=== PATIENT | male | born 1965 | race Caucasian/White ===

== ENCOUNTER 2017-01-08 01:35 | Inpatient (IN) | payer SELFPAY ==
[2017-01-08] MEDS ORDERED: SODIUM CHLORIDE 0.9% 500 ML INFUS.BAG IV ONE (02:04)
[2017-01-08 02:24] LABS: BASOPHIL 0.7 % (0-2.0); EOSINOPHIL 1.8 % (0-4.5); MCH 31.7 pg (25.7-33.7); MCHC 33.2 g/dl (32.0-35.9); MEAN CELL VOLUME 95.7 fl (80-96); MEAN PLT VOLUME 8.4 fl (7.5-11.1); NEUTROPHILS 72.6 % (42.8-82.8); PLATELET COUNT 197 K/MM3 (134-434); RDW 15.1 % (11.9-15.9); WHITE BLOOD COUNT 7.6 K/mm3 (4.0-10.0)
[2017-01-08] MEDS ORDERED: LORazepam 2 MG/ML SDV VIAL ONE (02:24)
--- NOTE | 2017-01-08 02:27 | PDOC ---
History of Present Illness - General History Source: Patient Exam Limitations: No Limitations - History of Present Illness Initial Comments: 01/08/17 03:19 The patient is a 51-year-old male BIB brother with a significant past medical history of HTN, HLD, DM, ETOH abuse, and presents to the emergency department with bleeding umbilical hernia since 1:30am. He reports that he sat up in bed tonight when the hernia began to bleed. He reports the bleeding has not ceased upon interview. He states he had 4 alcoholic drinks today, with the last intake at 9pm. He states the hernia has grown progressively larger over the last few years. The patient denies chest pain, shortness of breath, headache and dizziness. The patient denies fever, chills, nausea, vomit, diarrhea and constipation. The patient denies dysuria, frequency, urgency and hematuria. Allergies: NKDA Past Surgical History: defibrillator implant Social History: ETOH use for 11 years (5-6 beers a day), former smoker, denies drug use PCP: Dr. Baires at [facility] <Roseline Dupree - Last Filed: 01/08/17 06:59> <Rosio Lin - Last Filed: 01/09/17 05:10> - General Chief Complaint: Pain Stated Complaint: HERNIA PROBLEM Time Seen by Provider: 01/08/17 01:58 Past History <Roseline Dupree - Last Filed: 01/08/17 06:59> - Past Medical History Cardiac Disorders: Yes CVA: No CHF: No Dementia: No Diabetes: Yes GI Disorders: No Disorders: No HTN: Yes Hypercholesterolemia: Yes Liver Disease: No Seizures: No Thyroid Disease: No - Surgical History Abdominal Surgery: No Appendectomy: No Cardiac Surgery: Yes (DEFIB IMPLANTED.) Cholecystectomy: No Lung Surgery: No Neurologic Surgery: No Orthopedic Surgery: No - Psycho/Social/Smoking Cessation Hx Anxiety: No Suicidal Ideation: No Smoking Status: No Smoking History: Never smoked Have you smoked in the past 12 months: No Number of Cigarettes Smoked Daily: 0 If you are a former smoker, when did you quit?: Cigars Per Day: 0 Hx Alcohol Use: Yes Substance Use Type: None, Alcohol Hx Substance Use Treatment: Yes (went to a drinking program about 2005) <Rosio Lin - Last Filed: 01/09/17 05:10> - Past Medical History Allergies/Adverse Reactions: Allergies Allergy/AdvReac Type Severity Reaction Status Date / Time No Known Allergies Allergy Verified 01/08/17 02:01 Home Medications: Ambulatory Orders Amlodipine Besylate [Norvasc -] 5 mg PO DAILY 09/22/15 Lisinopril [Prinivil -] 40 mg PO DAILY 09/22/15 Metformin HCl [Metformin HCl ER] 1,000 mg PO BID 09/22/15 Metoprolol Tartrate 100 mg PO BID 09/22/15 Simvastatin [Zocor -] 20 mg PO HS 09/22/15 Glipizide [Glucotrol -] 10 mg PO BID@0700,1630 03/03/16 Review of Systems - Review of Systems Able to Perform ROS?: Yes Comments:: 01/08/17 07:00 CONSTITUTIONAL: Absent: fever, chills, diaphoresis, generalized weakness, malaise, loss of appetite HEENT: Absent: rhinorrhea, nasal congestion, throat pain, throat swelling, difficulty swallowing, mouth swelling, ear pain, eye pain, visual changes CARDIOVASCULAR: Absent: chest pain, syncope, palpitations, irregular heart rate, lightheadedness , peripheral edema RESPIRATORY: Absent: cough, shortness of breath, dyspnea with exertion, orthopnea, wheezing, stridor, hemoptysis GASTROINTESTINAL: Present: (+) bleeding umbilical hernia Absent: abdominal distension, nausea, vomiting, diarrhea, constipation, melena, hematochezia GENITOURINARY: Absent: dysuria, frequency, urgency, hesitancy, hematuria, flank pain, genital pain MUSCULOSKELETAL: Absent: myalgia, arthralgia, joint swelling SKIN: Absent: rash, itching, pallor HEMATOLOGIC/IMMUNOLOGIC: Absent: easy bleeding, easy bruising, lymphadenopathy, frequent infections ENDOCRINE: Absent: unexplained weight gain, unexplained weight loss, heat intolerance, cold intolerance NEUROLOGIC: Absent: headache, focal weakness or paresthesias, dizziness, unsteady gait, seizure, mental status changes, bladder or bowel incontinence PSYCHIATRIC: Absent: anxiety, depression, suicidal or homicidal ideation, hallucinations. <Roseline Dupree - Last Filed: 01/08/17 06:59> *Physical Exam - Vital Signs Last Vital Signs Temp Pulse Resp BP Pulse Ox 132 H 18 136/81 96 01/08/17 01:58 01/08/17 01:58 01/08/17 01:58 01/08/17 01:58 - Physical Exam Comments: 01/08/17 07:00 GENERAL: Well developed, well nourished. Awake and alert. No acute distress. HEENT: Normocephalic, atraumatic. PERRLA, EOMI. No conjunctival pallor. (+) Icteric sclera. Moist mucous membranes. Oropharynx is clear. NECK: Supple. Full ROM. No JVD. Carotid pulses 2+ and symmetric, without bruits. No thyromegaly. No lymphadenopathy. CARDIOVASCULAR: (+) Tachycardic. Regular rhythm. No murmurs, rubs, or gallops. Distal pulses are 2+ and symmetric. PULMONARY: No evidence of respiratory distress. Lungs clear to auscultation bilaterally. No wheezing, rales or rhonchi. ABDOMINAL: (+) 3.5 cm diameter protuberant umbilical hernia, bleeding at 5 oclock. (+) Distended belly, liver is not enlarged, most likely cirrhotic. Soft. Non- tender. No rebound or guarding. No organomegaly. Normoactive bowel sounds. MUSCULOSKELETAL Normal range of motion at all joints. No bony deformities or tenderness. No CVA tenderness. EXTREMITIES: (+) 4+ pitting edema up to thighs. No cyanosis. No clubbing. No calf tenderness. SKIN: (+) Skin color changes to legs. Warm and dry. Normal capillary refill. No rashes. NEUROLOGICAL: Alert, awake, appropriate. Cranial nerves 2-12 intact. No deficits to light touch and temperature in face, upper extremities and lower extremities. No motor deficits in the in face, upper extremities and lower extremities. Normoreflexic in the upper and lower extremities. Normal speech. Toes are down- going bilaterally. PSYCHIATRIC: Cooperative. Good eye contact. Appropriate mood and affect. <Roseline Dupree - Last Filed: 01/08/17 06:59> - Vital Signs Last Vital Signs Temp Pulse Resp BP Pulse Ox 132 H 18 136/81 96 01/08/17 01:58 01/08/17 01:58 01/08/17 01:58 01/08/17 01:58 <Rosio Lin - Last Filed: 01/09/17 05:10> ED Treatment Course - LABORATORY CBC & Chemistry Diagram: 01/08/17 01:58 01/08/17 02:08 - ADDITIONAL ORDERS Additional order review: Laboratory Results 01/08/17 01/08/17 01/08/17 02:08 02:08 02:08 INR 1.18 H PTT (Actin FS) 35.9 H Sodium 133 L Potassium 3.9 D Chloride 95 L Carbon Dioxide 23 Anion Gap 15 BUN 4 L Creatinine 0.6 L Creat Clearance w eGFR > 60 Random Glucose 398 H* D Calcium 7.9 L Total Bilirubin 1.3 H D AST 168 H D ALT 35 Alkaline Phosphatase 432 H D Total Protein 7.7 Albumin 2.0 L D 01/08/17 01:58 RBC 3.27 L D MCV 95.7 MCHC 33.2 RDW 15.1 MPV 8.4 D Neutrophils % 72.6 Lymphocytes % 16.8 D Monocytes % 8.1 Eosinophils % 1.8 D Basophils % 0.7 - Medications Given in the ED: ED Medications Discontinued Medications Generic Name Dose Route Start Last Admin Trade Name Freq PRN Reason Stop Dose Admin Lorazepam 4 mg 01/08/17 02:49 01/08/17 02:50 Ativan Injection - IVPUSH 01/08/17 02:50 4 mg ONCE ONE Administration Sodium Chloride 1,000 ml 01/08/17 02:04 01/08/17 02:11 Normal Saline - IV 01/08/17 02:05 1,000 ml ONCE ONE Administration <Roseline Dupree - Last Filed: 01/08/17 06:59> - LABORATORY CBC & Chemistry Diagram: 01/08/17 01:58 01/08/17 02:08 - RADIOLOGY Radiology Studies Ordered: Category Date Time Status CHEST X-RAY PORTABLE* [RAD] Stat Radiology 01/08/17 02:04 Ordered - Medications Given in the ED: ED Medications Discontinued Medications Generic Name Dose Route Start Last Admin Trade Name Freq PRN Reason Stop Dose Admin Sodium Chloride 1,000 ml 01/08/17 02:04 01/08/17 02:11 Normal Saline - IV 01/08/17 02:05 1,000 ml ONCE ONE Administration <Rosio Lin - Last Filed: 01/09/17 05:10> Medical Decision Making - Critical Care Time Total Critical Care Time (minutes): 45 Critical Care Statement: The care of this patient involved high complexity decision making to prevent further life threatening deterioration of the patient 's condition and/or to evalute & treat vital organ system(s) failure or risk of failure. - Medical Decision Making 01/09/17 05:05 Pt comes with constant bleed from his umbilicus. He has an alcohol abuse problem, and drinks alcohol daily. Today he awoke in the middle of the night, and states that when he sat up his umbilicus began to bleed. He has a large umbilical hernia, which he had never repaired electively, now tih non stop uncontrollable bleeding. Upon examination, pt has a 2mm perforation at 5 o' clock at the umbilicus, that was likely abutting a varices or his umbilical vein. I managed to hold pressure for 20 minutes, followed by holding pressure for 10 minutes with surgicel. Pt's umbilical bleed finally clotted off. He was treated with abx and with tdap, as the bleed and lac could lead to a peritonitis. Pt will be admitted to medicine for surgical evaluation. Pt has a hx of DM, blood sugar elevated. We treated with regular insulin in the ER. 01/09/17 05:10 Admitted to the hospitalist. <Rosio Lin - Last Filed: 01/09/17 05:10> *DC/Admit/Observation/Transfer - Attestations Scribe Attestion: 01/08/17 07:00 Documentation prepared by Roseline Dupree, acting as bilingual medical receptionist for Rosio Lin MD. <Roseline Dupree - Last Filed: 01/08/17 06:59> - Discharge Dispostion Admit: Yes <Rosio Lin - Last Filed: 01/09/17 05:10> Diagnosis at time of Disposition: Alcohol dependence, Diabetes, Umbilical hernia, Umbilical hemorrhage - Discharge Dispostion Condition at time of disposition: Guarded
[2017-01-08 02:35] LABS: INR 1.18 (0.82-1.09)
[2017-01-08 02:38] LABS: ANION GAP 15 (8-16); CALCIUM 7.9 mg/dL (8.5-10.1); CO2 23 mmol/L (21-32); CREATININE 0.6 mg/dL (0.7-1.3); SGOT/AST 168 U/L (15-37); SGPT/ALT 35 U/L (12-78)
[2017-01-08 02:40] LABS: ALK PHOS 432 U/L (45-117); BILIRUBIN,TOTAL 1.3 mg/dL (0.2-1.0); TOT PROT 7.7 g/dl (6.4-8.2)
[2017-01-08 02:44] LABS: GLUCOSE,RANDOM 398 mg/dL (74-106)
[2017-01-08] MEDS ORDERED: LORAZEPAM CARPU-JECT 2 MG/ML DISP.SYRIN IVPUSH ONE (02:49)
[2017-01-08] MEDS ORDERED: PIPERACILLIN/TAZOB 3.375 GM 3.375 GM in DEXTROSE 5%-WATER - 50 ML IVPB ONE (02:54)
[2017-01-08] MEDS ORDERED: DIPHTH,PERTUSS(ACELL),TET VAC 0.5 ML VIAL IM ONE (02:54)
[2017-01-08] MEDS ORDERED: INSULIN REGULAR HUMAN 100 UNITS/ML *VIAL IVPUSH ONE (02:57)
[2017-01-08] MEDS ORDERED: PIPERACILLIN/TAZOB 3.375 GM 50 ML IVPB ONE (04:51)
[2017-01-08] MEDS ORDERED: chlordiazePOXIDE HCL 25 MG CAPSULE PO PRN (06:54)
--- NOTE | 2017-01-08 06:57 | HP ---
Admitting History and Physical - Admission Chief Complaint: bleeding umbilical hernia History of Present Illness: 51 yo M w hx of HTN, HLD, DM, ETOH abuse, PPM, unspecified arrhythmia and presents to the emergency department with bleeding umbilical hernia since 1: 30am yesterday. He reports feeling discomfort to umbilical area and then noticed bleeding from the area. He denies prior bleeding episodes before. He reports taking ASA 81mg daily. He denies sob, cp, heart palps, abdominal pain, fevers, chills, body aches, diarrhea, vomiting. He denies recent trauma PMH/PSH- HTN, HLD, DM, ETOH abuse, PPM placement Social-- drinks 6-7 beers daily. Denies rec drugs, denies tobacco Famx- OR PCP- Dr. Baires Cards- Dr. Stahl, anamika Ros neg except for hpi Physical Gen- obese in nad, alert Hent- at/nc, ana, neck supple, trachea mid-line, no lymphadenopathy Resp- no cough, no ronchi, no rales, no wheezing, lungs ctab Cards- s1s2 heard, no JVD, +2 BLE pitting edema, peripheral pulses palpable Gi- obese abdomen, large reducible umbilical hernia, no rigidity, no guarding, BS normoactive Psych- cooperative, no agitation Neuro- cn 2-12 grossly intact, no speech deficits, no facial droop, no seizures Skin- redness to ble, increased warmth to ble, dressing to umbilical hernia Prob list Bleeding umbilical hernia DM HTN HLP hyponatremia anemia etoh abuse Leg edema transaminitis PPM Hyperbilirubemia tachycardia imaging CXR reviewed ecg- tachy, inc RBBB, possible left atrial enlargement a/p-51 yo M w hx of HTN, HLD, DM, ETOH abuse, and presents to the emergency department with bleeding umbilical hernia since 1:30am yesterday admitted for eval of their emergent condition 1. Bleeding umbilical hernia Per attending surgi seal and pressure applied to hernia with good effect Hold ASA local wound care Surgical consult placed 2. DM SSI BGM check FU A1c 3. HLP Hold Statin 2/2 elevated LFTs 4. Anemia possibly from acute blood loss Appears lower than baseline 11-12 Monitor CBC FU iron studies, FOBT 5. Etoh abuse with possible WD Last drink yesterday Given Ativan in ER Librium protocol [employer] on cessation FU Dr Donato aguilera 6. Hypnonatremia likely hyperglycemic effect Monitor labs 7. HTN Cont home meds 8. Leg edema, & redness ? dvt v cellulitis v other NO calf tenderness Increased warmth and redness bilaterally IV clindamycin 900mg [id number] FU duplex 9. Transaminitis ?infection v fatty liver f meds Hold Statin No belly pain FU liver US FU acute hep panel 10. PPM Reports check 12/2016 11. Hyperbilirubemia Monitor labs FU liver US 12. Sinus tachycardia likely secondary from blood loss v +/- alcohol WD Ekg non ischemic No CP or SOb CXr appears clear by my eye Fu trop Watch response with IVF DVT prophy hold chemoprophy 08/11 bleeding hernia FEN IVF NPO Dispo- requires > 2mn stay for bleeding umbilical hernia History Source: Patient Limitations to Obtaining History: No Limitations - Smoking History Smoking history: Never smoked Have you smoked in the past 12 months: No Aproximately how many cigarettes per day: 0 If you are a former smoker, when did you quit?: - Alcohol/Substance Use Hx Alcohol Use: Yes Home Medications - Allergies Allergies/Adverse Reactions: Allergies Allergy/AdvReac Type Severity Reaction Status Date / Time No Known Allergies Allergy Verified 01/08/17 02:01 - Home Medications Home Medications: Ambulatory Orders Amlodipine Besylate [Norvasc -] 5 mg PO DAILY 09/22/15 Lisinopril [Prinivil -] 40 mg PO DAILY 09/22/15 Metformin HCl [Metformin HCl ER] 1,000 mg PO BID 09/22/15 Metoprolol Tartrate 100 mg PO BID 09/22/15 Simvastatin [Zocor -] 20 mg PO HS 09/22/15 Glipizide [Glucotrol -] 10 mg PO BID@0700,1630 03/03/16 Physical Examination Vital Signs: Vital Signs Temperature Pulse Rate 132 H 01/08/17 01:58 Respiratory Rate 18 01/08/17 01:58 Blood Pressure 136/81 01/08/17 01:58 O2 Sat by Pulse Oximetry (%) 96 01/08/17 01:58 Visit type - Emergency Visit Emergency Visit: Yes ED Registration Date: 01/08/17 Care time: The patient presented to the Emergency Department on the above date and was hospitalized for further evaluation of their emergent condition. - New Patient This patient is new to me today: Yes Date on this admission: 01/08/17 - Critical Care Critical Care patient: No
[2017-01-08] MEDS: INSULIN SLIDING SCALE (NOVOLOG) 1 VIAL SQ SCH ×4 (08:25→21:14)
[2017-01-08] MEDS: SODIUM CHLORIDE 1,000 ML IV SCH ×2 (08:30→10:43)
[2017-01-08] MEDS ORDERED: CLINDAMYCIN 900 MG PREMIX IVPB 50 ML IVPB SCH (10:00)
[2017-01-08] MEDS: amLODIPine BESYLATE 5 MG TABLET (FP) PO SCH (10:41)
[2017-01-08] MEDS: LISINOPRIL 20 MG TABLET (FP) PO SCH (10:41)
[2017-01-08] MEDS: METOPROLOL TARTRATE 50 MG TABLET (FP) PO SCH ×2 (10:41→21:13)
[2017-01-08] MEDS ORDERED: INSULIN (NOVOLOG) ASPART 100 UNITS/ML 10ML VIAL ONE (10:42)
[2017-01-08] MEDS: chlordiazePOXIDE HCL 25 MG CAPSULE PO SCH ×3 (10:43→22:57)
[2017-01-08 11:17] VITALS: BMI 36.6
--- NOTE | 2017-01-08 13:10 | HP ---
DATE OF ADMISSION: 01/08/2017 REFERRING PROVIDER: ROB Carr REASON FOR REFERRAL: Umbilical hernia. BRIEF HISTORY: This is a 51-year-old alcoholic who presents to the emergency room with bleeding from his umbilicus. The patient is noted to have a very chronic umbilical hernia and now is here for further evaluation of this bleeding issue. He has no complaints of nausea, vomiting, nor abdominal pain. No change in bowel habits. No fever, chills, or sweats. PAST MEDICAL HISTORY: As mentioned above. Refer to chart for the rest. ALLERGIES: None. PAST SURGICAL HISTORY: Unknown. MEDICATIONS: See chart. SOCIAL HISTORY: Patient is an alcoholic, has been in rehabilitation, continues to drink. Denies drug use. PHYSICAL EXAMINATION: The abdomen is soft, nontender, nondistended, obese. He has a chronically incarcerated protruding umbilical hernia. There is some bleeding from the skin edge around 3 o'clock. IMPRESSION/PLAN: Excoriation of the skin around the umbilicus. This was suture ligated for control of nuisance skin bleeding. The patient can be evaluated in the office and followed up for elective repair of this hernia once deemed medically stable. I will see this patient on a p.r.n. basis. Thank you for allowing me to participate in the care of your patient. TONY DUBON M.D. [id number] cc: ROB Carr
--- NOTE | 2017-01-08 16:34 | HOSP ---
Physical Examination Vital Signs: Vital Signs Temperature 99.5 F 01/08/17 15:49 Pulse Rate 91 H 01/08/17 15:49 Respiratory Rate 20 01/08/17 15:49 Blood Pressure 123/64 01/08/17 15:49 O2 Sat by Pulse Oximetry (%) 98 01/08/17 10:57 Gastrointestinal: Yes: Hernia (umnilical hernia, reproducible, stiches x2, dressed) Edema: Yes Edema: LLE: Trace, RLE: Trace Integumentary: Yes: Erythema, Venous Stasis Changes Neurological: Yes: Alert, Oriented Hospitalist Encounter Assessment: Assessment: 51 year old male admitted with bleeding hernia Plan: 1. Bleeding hernia - Surgery evaluated placed 2 stitches, not a candidate for surgery at this time - Keep dressing in place until and follow up in office - Do not shower - Consider abdominal binder 2. Hyponatremia - Corrected 137 3. Elevated LFT's/alk phos - Continue IVF 75cc/hr 4. DM II - ISS, BGM ACHS 5. ETOH abuse - Started librium detox - Pt has 6-8 beers a night - No active withdrawal signs at this time 7. Hepatosplenomegaly - Counseled on cessation of alcohol 8. Lower ext erythema - No tenderness, no swelling - L >R erythema appearing - Vascular US repeat in 3 days if no improvent - Possible cellulitis, on clinda 600 q8
--- NOTE | 2017-01-08 17:23 | EKG ---
Test Reason : Blood Pressure : / mmHG Vent. Rate : 118 BPM Atrial Rate : 118 BPM P-R Int : 136 ms QRS Dur : 092 ms QT Int : 338 ms P-R-T Axes : 046 -26 044 degrees QTc Int : 473 ms SINUS TACHYCARDIA POSSIBLE LEFT ATRIAL ENLARGEMENT INCOMPLETE RIGHT BUNDLE BRANCH BLOCK ANTERIOR INFARCT , AGE UNDETERMINED ABNORMAL ECG WHEN COMPARED WITH ECG OF 31-JUL-2016 19:42, VENT. RATE HAS INCREASED BY 47 BPM ANTERIOR INFARCT IS NOW PRESENT NONSPECIFIC T WAVE ABNORMALITY NOW EVIDENT IN ANTERIOR LEADS Confirmed by MORRIS RODRIGUEZ, BERNA ([id number]) on 01/08/2017 5:23:32 PM Referred By: Confirmed By:BERNA CACERES MD
[2017-01-08] MEDS: CLINDAMYCIN 600MG PREMIX IVPB 50 ML IVPB SCH (17:45)
[2017-01-08] MEDS: FOLIC ACID 1 MG TABLET (FP) PO SCH (17:45)
[2017-01-08] MEDS: THIAMINE HCL 100 MG TABLET (FP) PO SCH (17:45)
[2017-01-09] MEDS: CLINDAMYCIN 600MG PREMIX IVPB 50 ML IVPB SCH ×3 (02:32→17:06)
[2017-01-09] MEDS: chlordiazePOXIDE HCL 25 MG CAPSULE PO SCH ×4 (06:00→22:56)
[2017-01-09 06:06] LABS: SERUM IRON 49 ug/dL (38-169); TOTAL IRON BINDING CAPACITY 200 ug/dL (250-450); UIBC 151 ug/dL (111-343)
[2017-01-09] MEDS: INSULIN SLIDING SCALE (NOVOLOG) 1 VIAL SQ SCH ×4 (06:13→22:55)
[2017-01-09 06:54] LABS: BASOPHIL 0.8 % (0-2.0); EOSINOPHIL 3.7 % (0-4.5); MCH 32.6 pg (25.7-33.7); MCHC 33.9 g/dl (32.0-35.9); MEAN CELL VOLUME 96.1 fl (80-96); PLATELET COUNT 167 K/MM3 (134-434); RDW 15.3 % (11.9-15.9); WHITE BLOOD COUNT 6.1 K/mm3 (4.0-10.0)
[2017-01-09 07:37] LABS: ALBUMIN 1.6 g/dl (3.4-5.0); ANION GAP 7 (8-16); BILIRUBIN,TOTAL 0.9 mg/dL (0.2-1.0); CALCIUM 7.7 mg/dL (8.5-10.1); CO2 27 mmol/L (21-32); CREATININE 0.5 mg/dL (0.7-1.3); SGOT/AST 133 U/L (15-37); SGPT/ALT 24 U/L (12-78)
[2017-01-09 07:46] LABS: ALK PHOS 346 U/L (45-117); THYROID STIMULATING HORMONE 1.97 uIU/ml (0.358-3.74); TOT PROT 6.3 g/dl (6.4-8.2)
[2017-01-09 08:35] LABS: GLUCOSE,RANDOM 287 mg/dL (74-106)
[2017-01-09] MEDS: FOLIC ACID 1 MG TABLET (FP) PO SCH (09:37)
[2017-01-09] MEDS: THIAMINE HCL 100 MG TABLET (FP) PO SCH (09:37)
[2017-01-09] MEDS: METOPROLOL TARTRATE 50 MG TABLET (FP) PO SCH ×2 (09:37→22:55)
[2017-01-09] MEDS: LISINOPRIL 20 MG TABLET (FP) PO SCH (09:37)
[2017-01-09] MEDS: SODIUM CHLORIDE 1,000 ML IV SCH (09:38)
[2017-01-09] MEDS: amLODIPine BESYLATE 5 MG TABLET (FP) PO SCH (10:37)
--- NOTE | 2017-01-09 12:15 | CONSULT ---
Consult Detox [facility] Reason for Current Admission/Consult: Alcohol dependence Referred by:: Kalyan Mahmood NP - History History of Present Illness: 51 y/o man with a long hx. of alcoholism is admitted because of bleeding from umbilical hernia.Pt. denies previous detox,reports one out-pt. treatment, would not elaborate as to why he went to tx. Pt. is currently on the librium detox protocol. - History Source History Provided By: Patient, Medical Record Limitations to Obtaining History: No Limitations - Alcohol/Substance Use Hx Alcohol Use: Yes - Current Drug/Alcohol Use Alcohol Route: Oral Frequency: Daily Amount used: Beer >1(6pack) Age of first use: 24 Date of Last Use: 01/07/17 - Past Medical History Cardio/Vascular: Yes: HTN, Hyperlipdemia Gastrointestinal: Yes: Other (Umbilical hernia) Endocrine: Yes: Diabetes Mellitus - Significant Medical Findings: Laboratory Last Values WBC 6.1 K/mm3 (4.0-10.0) 01/09/17 06:05 RBC 2.77 M/mm3 (4.00-5.60) L 01/09/17 06:05 Hgb 9.0 GM/dL (11.7-16.9) L D 01/09/17 06:05 Hct 26.6 % (35.4-49) L D 01/09/17 06:05 MCV 96.1 fl (80-96) H 01/09/17 06:05 MCHC 33.9 g/dl (32.0-35.9) 01/09/17 06:05 RDW 15.3 % (11.9-15.9) 01/09/17 06:05 Plt Count 167 K/MM3 (134-434) 01/09/17 06:05 MPV 8.0 fl (7.5-11.1) 01/09/17 06:05 Neutrophils % 65.0 % (42.8-82.8) 01/09/17 06:05 Lymphocytes % 20.1 % (8-40) 01/09/17 06:05 Monocytes % 10.4 % (3.8-10.2) H 01/09/17 06:05 Eosinophils % 3.7 % (0-4.5) D 01/09/17 06:05 Basophils % 0.8 % (0-2.0) 01/09/17 06:05 INR 1.18 (0.82-1.09) H 01/08/17 02:08 PTT (Actin FS) 35.9 SECONDS (26.9-34.4) H 01/08/17 02:08 Sodium 136 mmol/L (136-145) 01/09/17 06:05 Potassium 3.3 mmol/L (3.5-5.1) L 01/09/17 06:05 Chloride 102 mmol/L (98-107) 01/09/17 06:05 Carbon Dioxide 27 mmol/L (21-32) 01/09/17 06:05 Anion Gap 7 (8-16) L 01/09/17 06:05 BUN 5 mg/dL (7-18) L D 01/09/17 06:05 Creatinine 0.5 mg/dL (0.7-1.3) L 01/09/17 06:05 Creat Clearance w eGFR > 60 (>60) 01/09/17 06:05 POC Glucometer 335 UNITS (()) 01/09/17 11:09 Random Glucose 287 mg/dL (74-106) H D 01/09/17 06:05 Hemoglobin A1c % 11.6 % (4.8-6.0) H D 01/09/17 06:05 Calcium 7.7 mg/dL (8.5-10.1) L 01/09/17 06:05 Iron 49 ug/dL (38-169) 01/08/17 09:50 TIBC 200 ug/dL (250-450) L 01/08/17 09:50 Iron Saturation 25 % (15-55) 01/08/17 09:50 Ferritin 156.139 ng/ml (16.4-293.9) 01/09/17 06:05 Total Bilirubin 0.9 mg/dL (0.2-1.0) D 01/09/17 06:05 AST 133 U/L (15-37) H D 01/09/17 06:05 ALT 24 U/L (12-78) D 01/09/17 06:05 Alkaline Phosphatase 346 U/L (45-117) H 01/09/17 06:05 Troponin I < 0.02 ng/ml (0.00-0.05) 01/09/17 08:00 Total Protein 6.3 g/dl (6.4-8.2) L 01/09/17 06:05 Albumin 1.6 g/dl (3.4-5.0) L 01/09/17 06:05 TSH 1.97 uIU/ml (0.358-3.74) 01/09/17 06:05 Blood Type O POSITIVE 01/08/17 05:08 Antibody Screen Negative 01/08/17 02:08 CIWA Score - CIWA Score Nausea/Vomitin-No Nausea/No Vomiting Muscle Tremors: 2 Anxiety: 3 Agitation: 1-Slight > Activity Paroxysmal Sweats: 2 Orientation: 0-Oriented Tacttile Disturbances: 1-Very Mild Itch/Numbness Auditory Disturbances: 0-None Visual Disturbances: 0-None Headache: 0-None Present CIWA-Ar Total Score: 9 Assessment Plan - Diagnosis (1) Umbilical hemorrhage Status: Acute (2) HTN (hypertension) Status: Acute Qualifiers: Hypertension type: essential hypertension Qualified Code(s): I10 - Essential (primary) hypertension (3) Alcohol dependence with uncomplicated withdrawal Status: Acute (4) Type II diabetes mellitus Status: Acute Qualifiers: Diabetes mellitus complication status: without complication Diabetes mellitus terminal press operator insulin use: without terminal press operator use Qualified Code(s): E11.9 - Type 2 diabetes mellitus without complications - Plan Plan: Pt. should attend IOP - Medication Detox Regimen/Protocol: Keisha
[2017-01-09] MEDS ORDERED: POTASSIUM CHLORIDE ORAL LIQUID 20 MEQ/15 ML PO ONE ×2 (12:30→14:15)
[2017-01-09] MEDS ORDERED: PT OWN MED DRAWER 7, Y5N ONE (15:53)
--- NOTE | 2017-01-09 16:24 | PN ---
Physical Exam: SUBJECTIVE: Patient seen and examined, he says he thinks his legs are better, he normally doesn't have pain, only edema when he stands for prolong periods OBJECTIVE: Vital Signs Period Temp Pulse Resp BP Sys/Dukes Pulse Ox Last 24 Hr 98.3 F-99.6 F 89-106 18-20 103-127/50-69 93-98 PE Neuro: alert, awake, cn 2-12intact Pulm: CTAB CV: s1 s2 rrr no mrg Abd: umbilical hernia, reproducible, stitches in place Ext: lower ext erythema, less warm, no open lesions CBCD WBC 6.1 K/mm3 (4.0-10.0) 01/09/17 06:05 RBC 2.77 M/mm3 (4.00-5.60) L 01/09/17 06:05 Hgb 9.0 GM/dL (11.7-16.9) L D 01/09/17 06:05 Hct 26.6 % (35.4-49) L D 01/09/17 06:05 MCV 96.1 fl (80-96) H 01/09/17 06:05 MCHC 33.9 g/dl (32.0-35.9) 01/09/17 06:05 RDW 15.3 % (11.9-15.9) 01/09/17 06:05 Plt Count 167 K/MM3 (134-434) 01/09/17 06:05 MPV 8.0 fl (7.5-11.1) 01/09/17 06:05 CMP Sodium 136 mmol/L (136-145) 01/09/17 06:05 Potassium 3.3 mmol/L (3.5-5.1) L 01/09/17 06:05 Chloride 102 mmol/L (98-107) 01/09/17 06:05 Carbon Dioxide 27 mmol/L (21-32) 01/09/17 06:05 Anion Gap 7 (8-16) L 01/09/17 06:05 BUN 5 mg/dL (7-18) L D 01/09/17 06:05 Creatinine 0.5 mg/dL (0.7-1.3) L 01/09/17 06:05 Creat Clearance w eGFR > 60 (>60) 01/09/17 06:05 Calcium 7.7 mg/dL (8.5-10.1) L 01/09/17 06:05 Total Bilirubin 0.9 mg/dL (0.2-1.0) D 01/09/17 06:05 AST 133 U/L (15-37) H D 01/09/17 06:05 ALT 24 U/L (12-78) D 01/09/17 06:05 Alkaline Phosphatase 346 U/L (45-117) H 01/09/17 06:05 Total Protein 6.3 g/dl (6.4-8.2) L 01/09/17 06:05 Albumin 1.6 g/dl (3.4-5.0) L 01/09/17 06:05 01/08/17 01/09/17 01/09/17 20:15 06:05 06:05 Hemoglobin A1c % 11.6 H D Troponin I 0.02 TSH 1.97 Hepatitis A IgM Ab Hep Bs Antigen Hep B Core IgM Ab Hepatitis C Ab (EIA) 01/09/17 06:05 Hemoglobin A1c % Troponin I TSH Hepatitis A IgM Ab Pending Hep Bs Antigen Pending Hep B Core IgM Ab Pending Hepatitis C Ab (EIA) Pending Active Medications Generic Name Dose Route Start Last Admin Trade Name Freq PRN Reason Stop Dose Admin Amlodipine Besylate 5 mg 01/08/17 10:00 01/09/17 10:37 Norvasc - PO 5 mg DAILY KORIN Administration Chlordiazepoxide HCl 25 mg 01/08/17 06:54 Librium - PO 01/11/17 06:53 Q4H PRN WITHDRAWAL(CONT SUBST) Chlordiazepoxide HCl 25 mg 01/09/17 11:00 01/09/17 11:09 Librium - PO 01/10/17 05:01 25 mg [id number] KORIN Administration Chlordiazepoxide HCl 15 mg 01/10/17 11:00 Librium - PO 01/11/17 05:01 [id number] KORIN Folic Acid 1 mg 01/08/17 17:00 01/09/17 09:37 Folic Acid - PO 1 mg DAILY KORIN Administration Sodium Chloride 1,000 mls @ 75 mls/hr 01/08/17 08:15 01/09/17 09:38 Normal Saline - IV 75 mls/hr ASDIR KORIN Administration Clindamycin Phosphate 50 mls @ 100 mls/hr 01/08/17 18:00 01/09/17 09:37 Cleocin 600 Mg Premix Ivpb - IVPB 100 mls/hr Q8H-IV KORIN Administration Insulin Aspart 1 vial 01/08/17 13:06 01/09/17 11:10 Novolog Vial Sliding Scale - SQ 8 units ACHS KORIN Administration Protocol Lisinopril 40 mg 01/08/17 10:00 01/09/17 09:37 Prinivil PO 40 mg DAILY KORIN Administration Metoprolol Tartrate 100 mg 01/08/17 10:00 01/09/17 09:37 Lopressor - PO 100 mg BID KORIN Administration Thiamine HCl 100 mg 01/08/17 17:00 01/09/17 09:37 Vitamin B1 - PO 100 mg DAILY KORIN Administration Assessment: 51 year old male admitted with bleeding hernia and lower extremity cellulitis. Plan: 1. Bleeding hernia - Stable today - Surgery evaluated placed 2 stitches, not a candidate for surgery at this time - Keep dressing in place until and follow up in office - Do not shower until re evaluated - Consider abdominal binder 2. Lower ext erythema/cellulitis - Warmth is improving - Continue IV clindamycin 600mg q8h 3. Elevated LFT's/alk phos - Levels improving - Continue IVF 75cc/hr 4. DM II - ISS, BGM ACHS - Discharge on metformin 500mg BID - Glipizide 2.5mg daily 5. ETOH abuse - Librium detox - Thiamine daily - Folic acid daily 6. Hepatosplenomegaly - Counseled on cessation of alcohol 7. Hypomagnesemia - Replete 2gm x1 8. Hypokalemia - Replete 40meq x1 Dispo: - If LFT's continue to down trend and legs improve, DC home PO clinda Visit type - Emergency Visit Emergency Visit: Yes ED Registration Date: 01/08/17 Care time: The patient presented to the Emergency Department on the above date and was hospitalized for further evaluation of their emergent condition. - New Patient This patient is new to me today: No - Critical Care Critical Care patient: No
[2017-01-10] MEDS: CLINDAMYCIN 600MG PREMIX IVPB 50 ML IVPB SCH ×3 (02:26→18:23)
[2017-01-10] MEDS: chlordiazePOXIDE HCL 25 MG CAPSULE PO SCH (06:05)
[2017-01-10] MEDS: INSULIN SLIDING SCALE (NOVOLOG) 1 VIAL SQ SCH ×4 (06:06→21:18)
[2017-01-10 07:08] LABS: BASOPHIL 0.9 % (0-2.0); EOSINOPHIL 4.3 % (0-4.5); MCH 32.4 pg (25.7-33.7); MCHC 33.6 g/dl (32.0-35.9); MEAN CELL VOLUME 96.6 fl (80-96); MEAN PLT VOLUME 8.2 fl (7.5-11.1); NEUTROPHILS 67.6 % (42.8-82.8); PLATELET COUNT 181 K/MM3 (134-434); RDW 15.6 % (11.9-15.9); WHITE BLOOD COUNT 6.9 K/mm3 (4.0-10.0)
[2017-01-10 07:42] LABS: ALBUMIN 1.6 g/dl (3.4-5.0); ALK PHOS 350 U/L (45-117); ANION GAP 7 (8-16); BILIRUBIN,TOTAL 0.8 mg/dL (0.2-1.0); CALCIUM 7.5 mg/dL (8.5-10.1); CO2 27 mmol/L (21-32); CREATININE 0.6 mg/dL (0.7-1.3); MAGNESIUM 1.6 mg/dL (1.8-2.4); SGOT/AST 127 U/L (15-37); SGPT/ALT 24 U/L (12-78); TOT PROT 6.2 g/dl (6.4-8.2)
[2017-01-10 08:06] LABS: GLUCOSE,RANDOM 359 mg/dL (74-106)
[2017-01-10] MEDS: glipiZIDE 5 MG TABLET (FP) PO SCH ×2 (08:38→16:52)
[2017-01-10] MEDS ORDERED: MAGNESIUM SULF 50% (8.12 MEQ/2 ML-1 GM VIAL) IVPB ONE (08:45)
[2017-01-10] MEDS: METOPROLOL TARTRATE 50 MG TABLET (FP) PO SCH ×2 (09:58→21:17)
[2017-01-10] MEDS: FOLIC ACID 1 MG TABLET (FP) PO SCH (09:59)
[2017-01-10] MEDS: THIAMINE HCL 100 MG TABLET (FP) PO SCH (09:59)
[2017-01-10] MEDS: amLODIPine BESYLATE 5 MG TABLET (FP) PO SCH (09:59)
[2017-01-10] MEDS: LISINOPRIL 20 MG TABLET (FP) PO SCH (09:59)
--- NOTE | 2017-01-10 11:04 | PN ---
Physical Exam: SUBJECTIVE: Patient seen and examined. Denies any tremors, hallucinations or anxiety. Denies abdominal pain. OBJECTIVE: CIWA 0 Abdominal bleeding hernia resolved, to follow up as an outpatient On Librium Protocol Vital Signs Period Temp Pulse Resp BP Sys/Dukes Pulse Ox Last 24 Hr 98.2 F-99.6 F 88-102 18-20 102-137/50-76 94-98 GENERAL: The patient is awake, alert, and fully oriented, in no acute distress. HEAD: Normal with no signs of trauma. EYES: PERRL, extraocular movements intact, sclera anicteric, conjunctiva clear. No ptosis. ENT: Ears normal, nares patent, oropharynx clear without exudates, moist mucous membranes. NECK: Trachea midline, full range of motion, supple. LUNGS: Breath sounds equal, clear to auscultation bilaterally, no wheezes, no crackles, no accessory muscle use. ABDOMEN: Soft, nontender, dressing s/p bleeding hernia c/d/i rebound, no hepatosplenomegaly, no masses. EXTREMITIES: 2+ pulses, warm, well-perfused, no edema. NEUROLOGICAL: Normal speech, gait not observed. PSYCH: Normal mood, normal affect. SKIN: Warm, dry, normal turgor, no rashes or lesions noted Laboratory Results - last 24 hr 01/08/17 01/09/17 01/09/17 09:50 06:05 11:09 WBC RBC Hgb Hct MCV MCHC RDW Plt Count MPV Neutrophils % Lymphocytes % Monocytes % Eosinophils % Basophils % Sodium Potassium Chloride Carbon Dioxide Anion Gap BUN Creatinine Creat Clearance w eGFR POC Glucometer 335 Random Glucose Calcium Magnesium Transferrin 161 L Total Bilirubin AST ALT Alkaline Phosphatase Troponin I Total Protein Albumin Hepatitis A IgM Ab Negative Hep Bs Antigen Negative Hep B Core IgM Ab Negative Hepatitis C Ab (EIA) 0.2 01/09/17 01/09/17 01/09/17 15:00 16:14 22:54 WBC RBC Hgb Hct MCV MCHC RDW Plt Count MPV Neutrophils % Lymphocytes % Monocytes % Eosinophils % Basophils % Sodium Potassium Chloride Carbon Dioxide Anion Gap BUN Creatinine Creat Clearance w eGFR POC Glucometer 352 314 Random Glucose Calcium Magnesium Transferrin Total Bilirubin AST ALT Alkaline Phosphatase Troponin I < 0.02 Total Protein Albumin Hepatitis A IgM Ab Hep Bs Antigen Hep B Core IgM Ab Hepatitis C Ab (EIA) 01/10/17 01/10/1717 06:04 06:25 06:25 WBC 6.9 RBC 2.87 L Hgb 9.3 L Hct 27.7 L MCV 96.6 H MCHC 33.6 RDW 15.6 Plt Count 181 MPV 8.2 Neutrophils % 67.6 Lymphocytes % 18.3 Monocytes % 8.9 Eosinophils % 4.3 Basophils % 0.9 Sodium 135 L Potassium 3.6 Chloride 101 Carbon Dioxide 27 Anion Gap 7 L BUN 4 L Creatinine 0.6 L Creat Clearance w eGFR > 60 POC Glucometer 374 Random Glucose 359 H* D Calcium 7.5 L Magnesium 1.6 L Transferrin Total Bilirubin 0.8 AST 127 H ALT 24 Alkaline Phosphatase 350 H Troponin I Total Protein 6.2 L Albumin 1.6 L Hepatitis A IgM Ab Hep Bs Antigen Hep B Core IgM Ab Hepatitis C Ab (EIA) Active Medications Generic Name Dose Route Start Last Admin Trade Name Freq PRN Reason Stop Dose Admin Amlodipine Besylate 5 mg 01/08/17 10:00 01/10/17 09:59 Norvasc - PO 5 mg DAILY KORIN Administration Chlordiazepoxide HCl 25 mg 01/08/17 06:54 Librium - PO 01/11/17 06:53 Q4H PRN WITHDRAWAL(CONT SUBST) Chlordiazepoxide HCl 15 mg 01/10/17 11:00 Librium - PO 01/11/17 05:01 [id number] KORIN Folic Acid 1 mg 01/08/17 17:00 01/10/17 09:59 Folic Acid - PO 1 mg DAILY KORIN Administration Glipizide 10 mg 01/10/17 08:15 01/10/17 08:38 Glucotrol - PO 10 mg BID@0700,1630 KORIN Administration Clindamycin Phosphate 50 mls @ 100 mls/hr 01/08/17 18:00 01/10/17 09:58 Cleocin 600 Mg Premix Ivpb - IVPB 100 mls/hr Q8H-IV KORIN Administration Insulin Aspart 1 vial 01/10/17 08:11 Novolog Vial Sliding Scale - SQ ACHS [facility] Protocol Lisinopril 40 mg 01/08/17 10:00 01/10/17 09:59 Prinivil PO 40 mg DAILY KORIN Administration Metoprolol Tartrate 100 mg 01/08/17 10:00 01/10/17 09:58 Lopressor - PO 100 mg BID KORIN Administration Thiamine HCl 100 mg 01/08/17 17:00 01/10/17 09:59 Vitamin B1 - PO 100 mg DAILY KORIN Administration ASSESSMENT/PLAN: Patient is a 51 year old male with a significant past medical history of hypertension, hyperlipidemia, Diabetes, ETOH abuse, unspecified arrhythmia and presents to the emergency department with bleeding umbilical hernia. He denies prior bleeding episodes before. He reports taking ASA 81mg daily. He denies abdominal pain, fevers, chills, body aches, diarrhea, vomiting. He denies any recent trauma. GI: Abdominal bleeding hernia - resolved Assessment/Plan: Surgery evaluated and 2 stitches placed GI follow up as outpatient Dressing C/D/I Denies any abdominal pain or discomfort Will order an abdominal binder Elevated ALT and Alk Phos Elevated ALT with normal AST, monitor Elevated alk phos - improving, trending down Assessment/Plan: Monitor trend ID: Cellulitis Lower ext cellulitis Assessment/Plan: On clindamycin 600mg q8h since 01/08 Convert to PO upon d/c Endocrine: Diabetes mellitus Assessment/Plan: hyperglycemia Novolog sliding scale adjusted for tighter control Added home dose of Glipizide Psyche: ETOH abuse - chronic Assessment/Plan: On Librium protocol On Thiamine and folic acid daily No signs of withdrawal on exam Prophylaxis: GI: deferred DVT: No AC secondary to bleeding hernia F.E.N. Fluids: tolerating PO Electrolytes: Potassium stable, hypomag repleted with Magnesuim 2gram IV Disposition: Full code. Visit type - Emergency Visit Emergency Visit: Yes ED Registration Date: 01/08/17 Care time: The patient presented to the Emergency Department on the above date and was hospitalized for further evaluation of their emergent condition. - New Patient This patient is new to me today: Yes Date on this admission: 01/10/17 - Critical Care Critical Care patient: No - Discharge Referral Referred to [facility] Med P.C.: No
[2017-01-10] MEDS ORDERED: MAGNESIUM OXIDE 400 MG TABLET (FP) PO ONE ×2 (11:15→19:00)
[2017-01-10] MEDS ORDERED: INSULIN (NOVOLOG) ASPART 100 UNITS/ML 10ML VIAL ONE (11:28)
[2017-01-10] MEDS: chlordiazePOXIDE 5 MG CAPSULE PO SCH ×2 (11:34→16:52)
[2017-01-11] MEDS: chlordiazePOXIDE 5 MG CAPSULE PO SCH ×2 (00:13→05:08)
[2017-01-11] MEDS: CLINDAMYCIN 600MG PREMIX IVPB 50 ML IVPB SCH ×2 (02:08→09:44)
[2017-01-11] MEDS ORDERED: PT OWN MED DRAWER 7, Y5N ONE ×2 (02:27→17:16)
[2017-01-11] MEDS: glipiZIDE 5 MG TABLET (FP) PO SCH ×2 (06:42→17:17)
[2017-01-11] MEDS: INSULIN SLIDING SCALE (NOVOLOG) 1 VIAL SQ SCH ×3 (06:43→17:17)
[2017-01-11 06:47] LABS: BASOPHIL 1.2 % (0-2.0); EOSINOPHIL 4.1 % (0-4.5); MCH 32.2 pg (25.7-33.7); MCHC 33.5 g/dl (32.0-35.9); MEAN CELL VOLUME 96.1 fl (80-96); MEAN PLT VOLUME 8.4 fl (7.5-11.1); PLATELET COUNT 191 K/MM3 (134-434); WHITE BLOOD COUNT 7.2 K/mm3 (4.0-10.0)
[2017-01-11 07:09] LABS: ALBUMIN 1.5 g/dl (3.4-5.0); ANION GAP 6 (8-16); CALCIUM 7.5 mg/dL (8.5-10.1); CO2 27 mmol/L (21-32); CREATININE 0.6 mg/dL (0.7-1.3); MAGNESIUM 1.7 mg/dL (1.8-2.4); SGOT/AST 105 U/L (15-37); SGPT/ALT 21 U/L (12-78)
[2017-01-11 07:12] LABS: ALK PHOS 312 U/L (45-117); BILIRUBIN,TOTAL 0.9 mg/dL (0.2-1.0); TOT PROT 6.2 g/dl (6.4-8.2)
[2017-01-11 07:22] LABS: GLUCOSE,RANDOM 323 mg/dL (74-106)
[2017-01-11] MEDS ORDERED: MAGNESIUM SULF 50% (8.12 MEQ/2 ML-1 GM VIAL) IVPB ONE (07:33)
[2017-01-11] MEDS: amLODIPine BESYLATE 5 MG TABLET (FP) PO SCH (09:44)
[2017-01-11] MEDS: LISINOPRIL 20 MG TABLET (FP) PO SCH (09:44)
[2017-01-11] MEDS: THIAMINE HCL 100 MG TABLET (FP) PO SCH (09:45)
[2017-01-11] MEDS: FOLIC ACID 1 MG TABLET (FP) PO SCH (09:45)
[2017-01-11] MEDS: METOPROLOL TARTRATE 50 MG TABLET (FP) PO SCH (09:45)
[2017-01-11] MEDS ORDERED: POTASSIUM CHLORIDE TABS 20 MEQ TABLET.ER (FP) PO SCH (10:00)
[2017-01-11] MEDS ORDERED: MAGNESIUM OXIDE 400 MG TABLET (FP) PO SCH (10:00)
[2017-01-11] MEDS ORDERED: INSULIN (NOVOLOG) ASPART 100 UNITS/ML 10ML VIAL SQ ONE (10:45)
[2017-01-11 13:45] LABS: MAGNESIUM 2.2 mg/dL (1.8-2.4)
[2017-01-11 13:59] VITALS: BP 111/44; PULSE 79; TEMP 98.8
[2017-01-11] MEDS ORDERED: CLINDAMYCIN HCL 150 MG CAPSULE (FP) PO SCH (14:00)
--- NOTE | 2017-01-11 16:12 | DS ---
Physical Exam: SUBJECTIVE: Patient seen and examined. He denies pain or discomfort OBJECTIVE: bilateral lower ext with no edema, no redness - to continue PO antibiotics as an outpatient CIWA 0 Abdominal bleeding hernia resolved, to follow up as an outpatient with Dr. Perez Patient is refusing AA referrals, wants to obtain abstinence of alcohol on his own Spoke to him about various possibilities as an outpatient, but he states he as stopped drinking for a few months on his own and is willing to abstain from alcohol on his own. He is refusing referrals for outpatient alcohol clinics including AA. Postassium 4.1, Magnesium 2.2 Vital Signs Period Temp Pulse Resp BP Sys/Dukes Pulse Ox Last 24 Hr 98.4 F-99.0 F 79-98 18-19 97-126/44-62 95-97 PHYSICAL EXAM GENERAL: The patient is awake, alert, and fully oriented, in no acute distress. HEAD: Normal with no signs of trauma. EYES: PERRL, extraocular movements intact, sclera anicteric, conjunctiva clear. No ptosis. ENT: Ears normal, nares patent, oropharynx clear without exudates, moist mucous membranes. NECK: Trachea midline, full range of motion, supple. LUNGS: Breath sounds equal, clear to auscultation bilaterally, no wheezes, no crackles, no accessory muscle use. ABDOMEN: Soft, nontender, dressing s/p bleeding hernia c/d/i rebound, no hepatosplenomegaly, no masses. EXTREMITIES: 2+ pulses, warm, well-perfused, no edema, no redness NEUROLOGICAL: Normal speech, gait not observed. PSYCH: Normal mood, normal affect. SKIN: Warm, dry, normal turgor, no rashes or lesions noted LABS Laboratory Results - last 24 hr 01/10/17 01/10/17 01/11/17 16:51 21:16 06:20 WBC 7.2 RBC 2.67 L Hgb 8.6 L Hct 25.7 L MCV 96.1 H MCHC 33.5 RDW 16.0 H Plt Count 191 MPV 8.4 Neutrophils % 69.0 Lymphocytes % 15.3 Monocytes % 10.4 H Eosinophils % 4.1 Basophils % 1.2 Sodium Potassium Chloride Carbon Dioxide Anion Gap BUN Creatinine Creat Clearance w eGFR POC Glucometer 285 363 Random Glucose Calcium Magnesium Total Bilirubin AST ALT Alkaline Phosphatase Total Protein Albumin 01/11/17 01/11/17 01/11/17 06:20 06:42 12:05 WBC RBC Hgb Hct MCV MCHC RDW Plt Count MPV Neutrophils % Lymphocytes % Monocytes % Eosinophils % Basophils % Sodium 135 L Potassium 3.4 L Chloride 102 Carbon Dioxide 27 Anion Gap 6 L BUN 6 L D Creatinine 0.6 L Creat Clearance w eGFR > 60 POC Glucometer 297 336 Random Glucose 323 H* Calcium 7.5 L Magnesium 1.7 L Total Bilirubin 0.9 AST 105 H ALT 21 Alkaline Phosphatase 312 H Total Protein 6.2 L Albumin 1.5 L 01/11/17 12:50 WBC RBC Hgb Hct MCV MCHC RDW Plt Count MPV Neutrophils % Lymphocytes % Monocytes % Eosinophils % Basophils % Sodium Potassium 4.1 D Chloride Carbon Dioxide Anion Gap BUN Creatinine Creat Clearance w eGFR POC Glucometer Random Glucose Calcium Magnesium 2.2 D Total Bilirubin AST ALT Alkaline Phosphatase Total Protein Albumin HOSPITAL COURSE: Date of Admission:01/08/17 Date of Discharge: 01/11/17 ASSESSMENT/PLAN: Patient is a 51 year old male with a significant past medical history of hypertension, hyperlipidemia, Diabetes, ETOH abuse, unspecified arrhythmia and presents to the emergency department with bleeding umbilical hernia. He denies prior bleeding episodes before. He reports taking ASA 81mg daily. He denies abdominal pain, fevers, chills, body aches, diarrhea, vomiting. He denies any recent trauma. GI: Abdominal bleeding hernia - resolved Assessment/Plan: Surgery evaluated and 2 stitches placed GI follow up as outpatient, referral in d/c paperwork Dressing C/D/I, Denies any abdominal pain or discomfort Will benefit from abdominal binder to be provided prior to d/c Elevated ALT and Alk Phos - likely chronic Elevated ALT with normal AST, monitor Elevated alk phos - improving, trending down Assessment/Plan: Monitor as outpatient ID: Cellulitis - resolving/improving Lower ext cellulitis Assessment/Plan: Will be sent home on Clindamycin 300mg TID for 5 more day Endocrine: Diabetes mellitus - chronic Assessment/Plan: hyperglycemia - uncontrolled Novolog sliding scale adjusted for tighter control, but blood sugars remained elevated Increased Glipizide to 20mg BID, continue the home Metformin XR 1000mg BID Patient advised to keep track of his blood sugars and have readings evaluated by his PCP on post hospital appointment As per patient, his blood sugars are in the 140s at home on the Metformin and Glipizide Psyche: ETOH abuse - chronic Assessment/Plan: Completed Librium taper On Thiamine and folic acid daily No signs of withdrawal on exam Patient refusing outpatient rehab, Disposition: Full code. Home discharge with follow up with PCP and surgery. Minutes to complete discharge: 60 Discharge Summary Reason For Visit: UMBILICAL HERNIA, DIABETES, ALCOHOL DEPEN Current Active Problems Alcohol dependence (Acute) Alcohol dependence with uncomplicated withdrawal (Acute) Diabetes (Acute) Type II diabetes mellitus (Acute) Umbilical hemorrhage (Acute) Umbilical hernia (Acute) Condition: Improved - Instructions Diet, Activity, Other Instructions: Mr. Boss: Please continue the antibiotics of Clindamycin three times per day for 5 more days. Please see your primary care physician (Dr. Baires) so that he can evaluate you within 1 week after discharge. You will need to have your potassium and magnesium re-checked. Continue the pill supplements as ordered. Keep track of your blood sugars. The Glipizide has been increased to 20mg twice per day. Keep a log of your blood sugars and bring them to your PCP, he may want to adjust the dose of the metformin if the increase of the Glipizide is not sufficient. Please follow up for the surgeon, Dr. Chris Croft and make an appointment for the abdominal hernia and the stitches placed.. Please call me with any questions that you may have. Mariaa Funes PROCESSING ENGINEER [phone] Referrals: Lang Perez MD [Staff Physician] - STAFF,NOT ON [Primary Care Provider] - Disposition: HOME - Home Medications Comprehensive Discharge Medication List: Ambulatory Orders Amlodipine Besylate [Norvasc -] 5 mg PO DAILY 09/22/15 Lisinopril [Prinivil -] 40 mg PO DAILY 09/22/15 Metoprolol Tartrate 100 mg PO BID 09/22/15 Simvastatin [Zocor -] 20 mg PO HS 09/22/15 Glipizide [Glucotrol -] 10 mg PO BID@0700,1630 03/03/16 Folic Acid - 1 mg PO DAILY #30 tablet 01/11/17 Magnesium Oxide [Mag-Ox -] 400 mg PO BID #30 tablet 01/11/17 Potassium Chloride [K-Dur -] 40 meq PO DAILY #30 tab 01/11/17 Thiamine HCl [Vitamin B1 -] 100 mg PO DAILY #30 tablet MDD 1 tab 01/11/17 This patient is new to me today: No Emergency Visit: Yes ED Registration Date: 01/08/17 Care time: The patient presented to the Emergency Department on the above date and was hospitalized for further evaluation of their emergent condition. Critical Care patient: No - Discharge Referral Referred to [facility] Med P.C.: No
[2017-01-11] MEDS ORDERED: INSULIN (NOVOLOG) ASPART 100 UNITS/ML 10ML VIAL ONE (17:15)
== END 2017-01-11 18:13 | disposition home or self-care (01) | DRG 254 ==
LOC: SUPCPDRO 01:35 → JER 01:35 → JERBED 04:45 → UNDOADMIN 04:49 → J5S 08:47
PROVIDERS: ADMIT Internal Medicine; ATTEND Nurse Practitioner Family
PROC: HZ2ZZZZ Detoxification Services for Substance Abuse Treatment (ICD-10-PCS; principal; 2017-01-08)
DX: K42.9 Umbilical hernia without obstruction or gangrene (principal); R58 Hemorrhage, not elsewhere classified; I10 Essential (primary) hypertension; E78.5 Hyperlipidemia, unspecified; E11.65 Type 2 diabetes mellitus with hyperglycemia; F10.230 Alcohol dependence with withdrawal, uncomplicated; R16.2 Hepatomegaly with splenomegaly, not elsewhere classified; E83.42 Hypomagnesemia; E87.6 Hypokalemia; E87.1 Hypo-osmolality and hyponatremia; Z95.0 Presence of cardiac pacemaker; R74.0 Nonspecific elevation of levels of transaminase and lactic acid dehydrogenase [LDH]; E80.6 Other disorders of bilirubin metabolism; R00.0 Tachycardia, unspecified; D64.9 Anemia, unspecified; L03.116 Cellulitis of left lower limb; L03.115 Cellulitis of right lower limb; E66.9 Obesity, unspecified; Z68.36 Body mass index [BMI] 36.0-36.9, adult
CPT/HCPCS: 36415; 71010-TC; 76705-TC; 80053; 80074; 82272; 82728; 83036; 83540; 83550; 83735; 84132; 84443; 84466; 84484; 85025; 85610; 85730; 86850; 86900; 86901; 93005; 93010; 93970-TC; 99285-25

== ENCOUNTER 2017-01-18 05:02 | Emergency (ER) | payer SELFPAY ==
[2017-01-18 05:19] VITALS: BMI 42.6
--- NOTE | 2017-01-18 06:19 | PDOC ---
History of Present Illness - General History Source: Patient Exam Limitations: No Limitations - History of Present Illness Initial Comments: 01/18/17 06:35 The patient is a 51 year old male with significant past medical history of hypertension, hyperlipidemia, diabetes, etoh abuse who presents to the ED for bleeding from umbilical hernia site prior to arrival. Patient reports he woke up this morning with bleeding from his umbilical hernia site where he recently had 2 sutures placed during his admission here. He was admitted on 01/08. Patient denies any abdominal pain, nausea, vomiting, or diarrhea. States his last drink was prior to his last admission here. During his admission, patient was sent to detox where he had a librium treatment and states he feels better and is not feeling tremulous. He was discharged on 01/11. The patient denies fever, chills, diaphoresis, cough, SOB, chest pain, and palpitations. Allergies: NKDA Social History: ETOH use for 11 years (5-6 beers a day). No tobacco or drug use reported. Past Surgical History: s/p ppm PCP: Dr. Baires at [address] <Zuleima Rogers - Last Filed: 01/18/17 06:35> - General History Source: Patient <Jimmy Mireles - Last Filed: 01/18/17 19:20> - General Chief Complaint: Pain Stated Complaint: BLEEDING ABDOMINAL SUTURES Time Seen by Provider: 01/18/17 06:18 Past History <Zuleima Rogers - Last Filed: 01/18/17 06:35> - Past Medical History Cardiac Disorders: Yes CVA: No CHF: No Dementia: No Diabetes: Yes GI Disorders: No Disorders: No HTN: Yes Hypercholesterolemia: Yes Liver Disease: No Seizures: No Thyroid Disease: No - Surgical History Abdominal Surgery: No Appendectomy: No Cardiac Surgery: Yes (DEFIB IMPLANTED.) Cholecystectomy: No Lung Surgery: No Neurologic Surgery: No Orthopedic Surgery: No - Psycho/Social/Smoking Cessation Hx Anxiety: No Suicidal Ideation: No Smoking Status: No Smoking History: Never smoked Have you smoked in the past 12 months: No Number of Cigarettes Smoked Daily: 0 If you are a former smoker, when did you quit?: [id number] Cigars Per Day: 0 Hx Alcohol Use: Yes Drug/Substance Use Hx: No Substance Use Type: None, Alcohol Hx Substance Use Treatment: Yes (went to a drinking program about 2005) <Jimmy Mireles - Last Filed: 01/18/17 19:20> - Past Medical History Allergies/Adverse Reactions: Allergies Allergy/AdvReac Type Severity Reaction Status Date / Time No Known Allergies Allergy Verified 01/08/17 02:01 Home Medications: Ambulatory Orders Amlodipine Besylate [Norvasc -] 5 mg PO DAILY 09/22/15 Lisinopril [Prinivil -] 40 mg PO DAILY 09/22/15 Metoprolol Tartrate 100 mg PO BID 09/22/15 Simvastatin [Zocor -] 20 mg PO HS 09/22/15 Glipizide [Glucotrol -] 10 mg PO BID@0700,1630 03/03/16 Clindamycin [Cleocin -] 300 mg PO TID #20 tab 01/11/17 Folic Acid - 1 mg PO DAILY #30 tablet 01/11/17 Glipizide 20 mg PO BID #60 tablet 01/11/17 Magnesium Oxide [Mag-Ox -] 400 mg PO BID #30 tablet 01/11/17 Metformin HCl [Metformin HCl ER] 1,000 mg PO BID #60 tab.er.24 01/11/17 Potassium Chloride [K-Dur -] 40 meq PO DAILY #30 tab 01/11/17 Thiamine HCl [Vitamin B1 -] 100 mg PO DAILY #30 tablet MDD 1 tab 01/11/17 Nystatin Ointment [Mycostatin Ointment -] 1 applic TP BID #1 tube 01/18/17 Review of Systems - Review of Systems Able to Perform ROS?: Yes Comments:: 01/18/17 06:35 CONSTITUTIONAL: Absent: fever, no chills, no fatigue EYES: Absent: visual changes ENT: Absent: ear pain, no sore throat CARDIOVASCULAR: Absent: chest pain, no palpitations RESPIRATORY: Absent: cough, no SOB GI: Absent: abdominal pain, no nausea, no vomiting, no constipation, no diarrhea GENITOURINARY: Absent: dysuria, no frequency, no hematuria MUSCULOSKELETAL: Absent: back pain, no arthralgia, no myalgia SKIN: +bleeding from umbilical hernia site Absent: rash NEURO: Absent: headache <Zuleima Rogers - Last Filed: 01/18/17 06:35> *Physical Exam - Vital Signs Last Vital Signs Temp Pulse Resp BP Pulse Ox 79 14 117/71 100 01/18/17 05:15 01/18/17 05:15 01/18/17 05:15 01/18/17 05:15 - Physical Exam Comments: 01/18/17 06:35 GENERAL: Well-appearing, well-nourished. No apparent distress. HEENT: Normocephalic, atraumatic. PERRLA, EOMI. No conjunctival pallor. Sclera are non- icteric. Moist mucous membranes. Oropharynx is clear. CARDIOVASCULAR: Normal S1, S2. Regular rate and rhythm. PULMONARY: Clear to auscultation bilaterally. ABDOMINAL: Soft. Non-tender. Distended. No rebound or guarding. Large umbilical hernia measuring 10cm, no active bleeding at this time. No erythema surrounding the umbilical hernia. Irritation secondary to tape that was originally on patients abdomen. Normoactive bowel sounds. EXTREMITIES: Normal ROM in all four extremities. No gross deformities. SKIN: Warm and dry. Normal capillary refill. No rashes. Jaundice. NEUROLOGICAL: No focal neurological deficits. <Zuleima Rogers - Last Filed: 01/18/17 06:35> - Vital Signs Last Vital Signs Temp Pulse Resp BP Pulse Ox 79 14 117/71 100 01/18/17 05:15 01/18/17 05:15 01/18/17 05:15 01/18/17 05:15 <Jimmy Mireles - Last Filed: 01/18/17 19:20> ED Treatment Course - LABORATORY CBC & Chemistry Diagram: 01/18/17 06:40 01/18/17 06:40 <Jimmy Mireles - Last Filed: 01/18/17 19:20> Medical Decision Making - Medical Decision Making 01/18/17 19:20 Dr. Mireles: The scribe's documentation has been prepared under my direction and personally reviewed by me in its entirery. I confirm that the note above accurately reflects all work, treatment, procedures, and medical decision making performed by me. <Jimmy Mireles - Last Filed: 01/18/17 19:20> *DC/Admit/Observation/Transfer - Attestations Scribe Attestion: 01/18/17 06:36 Documentation prepared by Zuleima Rogers, acting as electromedical equipment technician for Jimmy Mireles MD/DO. <KenZuleima - Last Filed: 01/18/17 06:35> <Jimmy Mireles - Last Filed: 01/18/17 19:20> Diagnosis at time of Disposition: Umbilical hernia, Candidal intertrigo - Discharge Dispostion Disposition: HOME Condition at time of disposition: Improved - Prescriptions Prescriptions: Nystatin Ointment [Mycostatin Ointment -] 1 applic TP BID #1 tube - Referrals Referrals: Lang Perez MD [Staff Physician] - - Patient Instructions Printed Discharge Instructions: DI for Ventral Hernia Additional Instructions: Return to the emergency department immediately with ANY new, persistent or worsening symptoms including worsening abdominal pain, fevers, inability to tolerate oral intake or any other concerns. Avoid heavy lifting. Use the abdominal binder for comfort. Keep your skin folds clean/dry. Use the antifungal cream twice daily for 7 days , but make sure you keep the region dry to prevent recurrence. Stay well hydrated. If there is any signs of bleeding hold pressure to the area if it does not stop bleeding with pressure come back to the emergency department. You MUST call and follow up with your surgeon in 2-3 days for reevaluation. Your emergency department visit is not complete without a followup with your doctor for reevaluation. Please make sure your doctor reviews the results of your emergency evaluation. Print Language: [place] CITIZEN
[2017-01-18 07:20] LABS: BASOPHIL 1.1 % (0-2.0); EOSINOPHIL 6.8 % (0-4.5); MCH 32.2 pg (25.7-33.7); MCHC 33.5 g/dl (32.0-35.9); MEAN CELL VOLUME 96.3 fl (80-96); MEAN PLT VOLUME 8.3 fl (7.5-11.1); NEUTROPHILS 67.1 % (42.8-82.8); PLATELET COUNT 275 K/MM3 (134-434); RDW 15.5 % (11.9-15.9); WHITE BLOOD COUNT 8.7 K/mm3 (4.0-10.0)
--- NOTE | 2017-01-18 07:42 | PDOC ---
*Physical Exam - Vital Signs Last Vital Signs Temp Pulse Resp BP Pulse Ox 99 F 79 14 117/71 100 01/18/17 07:30 01/18/17 05:15 01/18/17 05:15 01/18/17 05:15 01/18/17 05:15 <Yue Person - Last Filed: 01/18/17 09:28> - Vital Signs Last Vital Signs Temp Pulse Resp BP Pulse Ox 79 14 117/71 100 01/18/17 05:15 01/18/17 05:15 01/18/17 05:15 01/18/17 05:15 <Leonard Carrillo - Last Filed: 01/18/17 11:08> ED Treatment Course - LABORATORY CBC & Chemistry Diagram: 01/18/17 06:40 01/18/17 06:40 - ADDITIONAL ORDERS Additional order review: Laboratory Results 01/18/17 01/18/17 01/18/17 07:35 06:40 06:40 INR Sodium Potassium Chloride Carbon Dioxide Anion Gap BUN Creatinine Creat Clearance w eGFR Random Glucose Calcium Magnesium Total Bilirubin AST ALT Alkaline Phosphatase Total Protein Albumin Total Amylase Lipase Urine Color Straw Urine Appearance Clear Urine pH 6.0 Urine Protein Negative Urine Glucose (UA) Negative Urine Ketones Negative Urine Blood Negative Urine Nitrite Negative Urine Bilirubin Negative Urine Urobilinogen Negative Ur Leukocyte Esterase Trace H Alcohol, Quantitative < 5.0 Blood Type O POSITIVE Antibody Screen Negative 01/18/17 01/18/17 06:40 06:40 INR 1.24 H Sodium 136 Potassium 4.6 Chloride 102 Carbon Dioxide 24 Anion Gap 10 BUN 15 D Creatinine 0.9 D Creat Clearance w eGFR > 60 Random Glucose 142 H D Calcium 8.1 L Magnesium 1.9 Total Bilirubin 0.9 AST 126 H ALT 20 Alkaline Phosphatase 337 H Total Protein 7.2 Albumin 1.8 L Total Amylase 36 Lipase 235 Urine Color Urine Appearance Urine pH Urine Protein Urine Glucose (UA) Urine Ketones Urine Blood Urine Nitrite Urine Bilirubin Urine Urobilinogen Ur Leukocyte Esterase Alcohol, Quantitative Blood Type Antibody Screen 01/18/17 06:40 RBC 2.96 L MCV 96.3 H MCHC 33.5 RDW 15.5 MPV 8.3 Neutrophils % 67.1 Lymphocytes % 15.1 Monocytes % 9.9 Eosinophils % 6.8 H Basophils % 1.1 <Yue Person - Last Filed: 01/18/17 09:28> - LABORATORY CBC & Chemistry Diagram: 01/18/17 06:40 01/18/17 06:40 - ADDITIONAL ORDERS Additional order review: 01/18/17 06:40 RBC 2.96 L MCV 96.3 H MCHC 33.5 RDW 15.5 MPV 8.3 Neutrophils % 67.1 Lymphocytes % 15.1 Monocytes % 9.9 Eosinophils % 6.8 H Basophils % 1.1 <Leonard Carrillo - Last Filed: 01/18/17 11:08> Medical Decision Making - Medical Decision Making 01/18/17 09:28 Dr. Lang Perez was paged via phone answering service at 08:55 requesting a call back for doctor to doctor consult. Dr. Lang Perez was called at the office at 09:25 requesting a call back. I have been informed Dr. Styles will return the call on behalf of Dr. Lang Perez, however, he is currently in the operating room at this time. A message was left to call the E.D. for a doctor to doctor a his earliest convenience. <Yue Person - Last Filed: 01/18/17 09:28> - Medical Decision Making 01/18/17 07:42 Pt signed out to me from Dr. Vincent at approx 7am. Pt is a 51y M hx of htn, hl, dm, etoh abuse who presents with episode of bleeding from his umbilical hernia, he was here for the same on 01/08, and had sutures placed by Dr. Perez. The pt has not yet followed pu with dr. Perez. There was no bleeding in the ED, however. On exam the pt apperas well, and there are some signs of bleeding with dried blood, and during my examination, the area of the suture site started bleeding briefly but stopped with pressure. NNo signs of eryhtmea/induratio nor other signs of infectoin. his hernia is soft and reducible. awaiting labs, will discuss with dr. Perez regarding disposition. Allergies: NKDA Social History: ETOH use for 11 years (5-6 beers a day). No tobacco or drug use reported. Past Surgical History: s/p ppm PCP: Dr. Baires at [address] 07/12/17 09:39 pts albs reviewed no current bleeding. Placed surgicel in the region. will dc with outpatient fu with dr. Perez. return precautions were discussed pt given an abdominal binder I discussed the physical exam findings, ancillary test results and final diagnoses with the patient. I answered all of the patient's questions. The patient was satisfied with the care received and felt comfortable with the discharge plan and treatment plan. The patient will call their primary care physician within 24 hours to arrange follow-up and will return to the Emergency Department with any new, persistent or worsening symptoms. <Leonard Carrillo - Last Filed: 01/18/17 11:08> *DC/Admit/Observation/Transfer <Yue Person - Last Filed: 01/18/17 09:28> - Discharge Dispostion Admit: No <Leonard Carrillo - Last Filed: 01/18/17 11:08> Diagnosis at time of Disposition: Candidal intertrigo Umbilical hernia Qualifiers: Obstruction and gangrene presence: without obstruction or gangrene Qualified Code(s): K42.9 - Umbilical hernia without obstruction or gangrene - Discharge Dispostion Disposition: HOME Condition at time of disposition: Improved - Prescriptions Prescriptions: Nystatin Ointment [Mycostatin Ointment -] 1 applic TP BID #1 tube - Referrals Referrals: Lang Perez MD [Staff Physician] - - Patient Instructions Printed Discharge Instructions: DI for Ventral Hernia Additional Instructions: Return to the emergency department immediately with ANY new, persistent or worsening symptoms including worsening abdominal pain, fevers, inability to tolerate oral intake or any other concerns. Avoid heavy lifting. Use the abdominal binder for comfort. Keep your skin folds clean/dry. Use the antifungal cream twice daily for 7 days , but make sure you keep the region dry to prevent recurrence. Stay well hydrated. If there is any signs of bleeding hold pressure to the area if it does not stop bleeding with pressure come back to the emergency department. You MUST call and follow up with your surgeon in 2-3 days for reevaluation. Your emergency department visit is not complete without a followup with your doctor for reevaluation. Please make sure your doctor reviews the results of your emergency evaluation. Print Language: VIETNAMESE
[2017-01-18 07:50] LABS: URINE APPEARANCE CLEAR; URINE BILIRUBIN NEGATIVE (NEGATIVE); URINE BLOOD NEGATIVE (NEGATIVE); URINE COLOR STRAW; URINE GLUCOSE (UA) NEGATIVE (NEGATIVE); URINE KETONE NEGATIVE (NEGATIVE); URINE NITRITE NEGATIVE (NEGATIVE); URINE PROTEIN NEGATIVE (NEGATIVE); URINE UROBILINOGEN NEGATIVE E.U./dl (0.2-1.0)
[2017-01-18 07:52] LABS: ALBUMIN 1.8 g/dl (3.4-5.0); ALK PHOS 337 U/L (45-117); AMYLASE 36 U/L (25-115); ANION GAP 10 (8-16); BILIRUBIN,TOTAL 0.9 mg/dL (0.2-1.0); CALCIUM 8.1 mg/dL (8.5-10.1); CO2 24 mmol/L (21-32); CREATININE 0.9 mg/dL (0.7-1.3); GLUCOSE,RANDOM 142 mg/dL (74-106); MAGNESIUM 1.9 mg/dL (1.8-2.4); SGOT/AST 126 U/L (15-37); SGPT/ALT 20 U/L (12-78); TOT PROT 7.2 g/dl (6.4-8.2)
[2017-01-18 07:57] LABS: URINE LEUK ESTERASE TRACE (NEGATIVE)
[2017-01-18 07:59] LABS: INR 1.24 (0.82-1.09); PROTHROMBIN TIME (PATIENT) 13.7 SEC (9.98-11.88)
[2017-01-18 08:00] VITALS: TEMP 99
[2017-01-18 09:58] VITALS: BP 107/64; PULSE 96
[2017-01-18 11:31] LABS: URINE BACTERIA RARE /hpf (NONE SEEN); URINE RBC <1 /hpf (0-3); URINE WBC 5 /hpf (3-5)
== END 2017-01-18 11:18 | disposition home or self-care (01) ==
LOC: JER 05:02
DX: K42.9 Umbilical hernia without obstruction or gangrene (principal); B37.2 Candidiasis of skin and nail; I10 Essential (primary) hypertension; E78.5 Hyperlipidemia, unspecified; E11.9 Type 2 diabetes mellitus without complications; F10.10 Alcohol abuse, uncomplicated
CPT/HCPCS: 36415; 80053; 80307; 81003; 81015; 82150; 83690; 83735; 85025; 85610; 86850; 86900; 86901; 99284-25

== ENCOUNTER 2019-03-21 12:51 | Inpatient (IN) | payer OTHER ==
[2019-03-21] MEDS ORDERED: SODIUM CHLORIDE 1,000 ML IV STA ×3 (14:08→18:10)
--- NOTE | 2019-03-21 15:12 | PDOC ---
History of Present Illness - General History Source: Patient Exam Limitations: No Limitations - History of Present Illness Initial Comments: 03/21/19 15:07 53 yo M w/ a h/o HTN, HLD, IDDM, heart disease? has defibrillator for arrythmia ? comes in c/o 2 days of generalized weakness, lightheadedness, headache and fatigue. He checked his sugar yesterday and this am, it was >500. No other complaints today, no fever/chills, no NVD, no abdominal pain, no chest pain/no SOB, no back pain, no prior h/o similar symptoms. Denies urinary symptoms, no cough, no URI symptoms. Denies alcohol/drug use. No smoking. <Heather Echevarria - Last Filed: 03/21/19 16:12> <Deanna Kim - Last Filed: 03/29/19 15:49> - General Chief Complaint: Blood Sugar Problem Stated Complaint: BLOOD SUGAR PROBLEM Time Seen by Provider: 03/21/19 13:37 Past History - Past Medical History Cardiac Disorders: Yes CVA: No CHF: No Dementia: No Diabetes: Yes GI Disorders: No Disorders: No HTN: Yes Hypercholesterolemia: Yes Liver Disease: No Seizures: No Thyroid Disease: No - Surgical History Abdominal Surgery: No Appendectomy: No Cardiac Surgery: Yes (DEFIB IMPLANTED.) Cholecystectomy: No Lung Surgery: No Neurologic Surgery: No Orthopedic Surgery: No - Suicide/Smoking/Psychosocial Hx Smoking Status: No Smoking History: Smoker current status UNK Have you smoked in the past 12 months: No Number of Cigarettes Smoked Daily: 0 If you are a former smoker, when did you quit?: Cigars Per Day: 0 Information on smoking cessation initiated: No Hx Alcohol Use: No Drug/Substance Use Hx: No Substance Use Type: None, Alcohol Hx Substance Use Treatment: Yes (went to a drinking program about 2005) <Heather Echevarria - Last Filed: 03/21/19 16:12> <Deanna Kim - Last Filed: 03/29/19 15:49> - Past Medical History Allergies/Adverse Reactions: Allergies Allergy/AdvReac Type Severity Reaction Status Date / Time No Known Allergies Allergy Verified 03/21/19 13:17 Home Medications: Ambulatory Orders Amlodipine Besylate [Norvasc -] 5 mg PO DAILY 09/22/15 Lisinopril [Prinivil -] 40 mg PO DAILY 09/22/15 Simvastatin [Zocor -] 20 mg PO HS 09/22/15 metFORMIN HCL [Metformin HCl ER] 1,000 mg PO BID #60 tab.er.24 01/11/17 Insulin (Levemir) [Levemir Vial] 20 unit SQ HS 03/21/19 Metoprolol Succinate [Toprol Xl -] 100 mg PO DAILY 03/21/19 Atorvastatin Ca [Lipitor] 20 mg PO HS 03/22/19 Review of Systems - Review of Systems Able to Perform ROS?: Yes Constitutional: Yes: Malaise. No: Chills, Fever, Night Sweats HEENTM: No: Eye Pain, Recent change in vision, Throat Pain Respiratory: No: Cough, Shortness of Breath Cardiac (ROS): No: Chest Pain, Palpitations, Chest Tightness ABD/GI: No: Diarrhea, Nausea, Vomiting, Abdominal cramping : No: Dysuria, Hematuria Musculoskeletal: No: Back Pain Integumentary: No: Rash Neurological: Yes: Headache, Dizziness. No: Numbness Psychiatric: No: Change in Appetite Endocrine: No: Unexplained Weight Loss <WaleAsiaHeather - Last Filed: 03/21/19 16:12> *Physical Exam - Vital Signs Last Vital Signs Temp Pulse Resp BP Pulse Ox 98.9 F 103 H 16 114/62 100 03/21/19 13:00 03/21/19 13:00 03/21/19 13:00 03/21/19 13:00 03/21/19 13:00 - Physical Exam General Appearance: Yes: Nourished. No: Apparent Distress HEENT: positive: RIC, Normal ENT Inspection, Normal Voice. negative: Pale Conjunctivae, Scleral Icterus (R), Scleral Icterus (L) Neck: positive: Supple. negative: Decreased range of motion, Tender midline Respiratory/Chest: positive: Lungs Clear, Normal Breath Sounds. negative: Respiratory Distress, Accessory Muscle Use Cardiovascular: positive: Regular Rhythm, Regular Rate Gastrointestinal/Abdominal: positive: Normal Bowel Sounds, Soft. negative: Tender Musculoskeletal: positive: Normal Inspection. negative: CVA Tenderness, Decreased Range of Motion Extremity: positive: Normal Capillary Refill, Normal Inspection, Normal Range of Motion. negative: Tender, Pedal Edema Integumentary: positive: Normal Color, Dry. negative: Jaundice, Rash Neurologic: positive: instructional manager II-XII NML intact, Fully Oriented, Alert, Normal Mood/ Affect, Motor Strength 5/5, Finger to Nose (normal). negative: Numbness <Heather Echevarria - Last Filed: 03/21/19 16:12> - Vital Signs Last Vital Signs Temp Pulse Resp BP Pulse Ox 98.7 F 87 18 119/73 99 03/24/19 16:00 03/24/19 16:00 03/24/19 16:00 03/24/19 16:00 03/24/19 16:54 <Deanna Kim - Last Filed: 03/29/19 15:49> ED Treatment Course - LABORATORY CBC & Chemistry Diagram: 03/21/19 15:10 03/21/19 15:10 - ADDITIONAL ORDERS Additional order review: Laboratory Results 03/21/19 15:01 POC Glucometer 456 03/21/19 15:01 POC Glucometer 456 <Heather Echevarria - Last Filed: 03/21/19 16:12> - LABORATORY CBC & Chemistry Diagram: 03/24/19 13:40 03/24/19 09:16 - ADDITIONAL ORDERS Additional order review: 03/21/19 17:19 Urine Culture - Final Urine - Urine Clean Catch Strep Agalactiae Group B 03/21/19 03/21/19 03/21/19 17:54 17:02 15:10 RBC 3.26 L MCV 88.7 MCHC 33.4 RDW 14.9 MPV 8.8 Neutrophils % 78.1 Lymphocytes % 12.7 Monocytes % 5.7 Eosinophils % 2.8 Basophils % 0.7 POC Glucometer 397 383 03/21/19 15:01 RBC MCV MCHC RDW MPV Neutrophils % Lymphocytes % Monocytes % Eosinophils % Basophils % POC Glucometer 456 - Medications Given in the ED: ED Medications Discontinued Medications Generic Name Dose Route Start Last Admin Trade Name Freq PRN Reason Stop Dose Admin Acetaminophen 650 mg 03/21/19 21:26 03/21/19 21:49 Tylenol - PO 650 mg Q6H PRN Administration Fever Or Pain Amlodipine Besylate 5 mg 03/22/19 10:00 03/24/19 09:13 Norvasc - PO Not Given DAILY KORIN Atorvastatin Calcium 10 mg 03/22/19 22:00 03/23/19 22:23 Lipitor - PO 10 mg HS KORIN Administration Furosemide 20 mg 03/23/19 20:26 03/24/19 02:00 Lasix Injection - IVPUSH 03/23/19 20:27 20 mg ONCE ONE Administration Heparin Sodium (Porcine) 5,000 unit 03/22/19 06:00 03/23/19 15:21 Heparin - SQ Not Given TID KORIN Sodium Chloride 1,000 mls @ 1,000 mls/hr 03/21/19 14:08 03/21/19 15:34 Normal Saline - IV 03/21/19 15:07 1,000 mls/hr ASDIR STA Administration Sodium Chloride 1,000 mls @ 1,000 mls/hr 03/21/19 16:52 03/21/19 16:30 Normal Saline - IV 03/21/19 17:51 1,000 mls/hr ASDIR STA Administration Sodium Chloride 1,000 mls @ 1,000 mls/hr 03/21/19 18:10 03/21/19 18:18 Normal Saline - IV 03/21/19 19:09 1,000 mls/hr ASDIR STA Administration Sodium Chloride 1,000 mls @ 75 mls/hr 03/21/19 21:30 03/24/19 12:20 Normal Saline - IV 75 mls/hr ASDIR KORIN Administration Pantoprazole Sodium 80 mg/ 100 mls @ 10 mls/hr 03/23/19 16:00 03/24/19 14:08 Sodium Chloride IVPB 10 mls/hr Q10H KORIN Administration 8 MG/HR Octreotide Acetate 200 mcg/ 500 mls @ 20.833 mls/hr 03/24/19 12:00 03/24/19 14:07 Octreotide Acetate 1,000 mcg/ IVPB 20.833 mls/hr Dextrose ASDIR KORIN Administration Levofloxacin 500 mg in 100 mls @ 100 mls/hr 03/24/19 11:00 03/24/19 13:00 Levaquin 500 Mg Premixed Ivpb - IVPB 100 mls/hr DAILY KORIN Administration Protocol Insulin Aspart 1 vial 03/21/19 22:00 03/22/19 11:29 Novolog Vial Sliding Scale - SQ 10 unit ACHS KORIN Administration Protocol Insulin Aspart 1 vial 03/22/19 16:30 03/24/19 15:49 Novolog Vial Sliding Scale - SQ Not Given TIDAC [facility] Protocol Insulin Aspart 1 vial 03/22/19 22:00 03/23/19 22:24 Novolog Vial Sliding Scale - SQ Not Given HS [facility] Protocol Insulin Detemir 20 units 03/22/19 10:00 03/24/19 07:10 Levemir Vial SQ Not Given AM [facility] Insulin Human Regular 6 units 03/21/19 16:12 03/21/19 16:24 Novolin R Vial *For Ivpush Or Iv Drip Only* IVPUSH 03/21/19 16:13 6 units ONCE ONE Administration Insulin Human Regular 4 units 03/21/19 17:10 03/21/19 17:22 Novolin R Vial *For Ivpush Or Iv Drip Only* IVPUSH 03/21/19 17:11 4 units ONCE ONE Administration Lisinopril 40 mg 03/22/19 10:00 03/24/19 09:13 Prinivil PO Not Given DAILY [facility] Metoprolol Succinate 100 mg 03/22/19 10:00 03/24/19 09:13 Toprol Xl - PO Not Given DAILY [facility] Octreotide Acetate 50 mcg 03/24/19 11:30 03/24/19 14:07 Sandostatin - IVPUSH 03/24/19 11:31 50 mcg ONCE ONE Administration Pantoprazole Sodium 40 mg 03/23/19 14:00 03/23/19 15:22 Protonix Iv IVPUSH 03/23/19 14:01 40 mg ONCE ONE Administration <Deanna Kim - Last Filed: 03/29/19 15:49> Medical Decision Making - Medical Decision Making 03/21/19 15:10 53 yo M w/ DM. HTN., HLD, w/ a defibrillator comes in c/o 2 days of high blood sugar with lightheadedness, headaches, malaise. FS>400, will line and lab, check UA, give IV fluids and reassess. 03/21/19 16:12 Change of shift, care of patient signed over to TRACY Rogers who will reassess pt , Follow up labs and decide on dispo plan. <Heather Echevarria - Last Filed: 03/21/19 16:12> *DC/Admit/Observation/Transfer <Heather Echevarria - Last Filed: 03/21/19 16:12> - Attestations Physician Attestion: I reviewed the case with the mid-level practitioner and agree with the mid- level practitioner's assessment, diagnosis and disposition. <Deanna Kim - Last Filed: 03/29/19 15:49> Diagnosis at time of Disposition: Hyperglycemia - Discharge Dispostion Disposition: TRANSFER ACUTE CARE/OTHER HOSP Condition at time of disposition: Stable
[2019-03-21 15:22] LABS: VENOUS PC02 33.5 mmHg (38-52); VENOUS PH 7.39 (7.31-7.41); VENOUS PO2 52.7 mmHg (28-48)
[2019-03-21 15:26] LABS: BASO % 0.7 % (0-2.0); EOS % 2.8 % (0-4.5); HEMATOCRIT 28.9 % (35.4-49); HEMOGLOBIN 9.7 GM/dL (11.7-16.9); LYMPH % 12.7 % (8-40); MCH 29.7 pg (25.7-33.7); MCHC 33.4 g/dl (32.0-35.9); MEAN CELL VOLUME 88.7 fl (80-96); MEAN PLT VOLUME 8.8 fl (7.5-11.1); MONO % 5.7 % (3.8-10.2); NEUT % 78.1 % (42.8-82.8); PLATELET COUNT 157 K/MM3 (134-434); RBC 3.26 M/mm3 (4.00-5.60); RDW 14.9 % (11.9-15.9); WHITE BLOOD COUNT 6.8 K/mm3 (4.0-10.0)
[2019-03-21] MEDS ORDERED: INSULIN REGULAR HUMAN 100 UNITS/ML *VIAL IVPUSH ONE ×2 (16:12→17:10)
[2019-03-21 16:13] LABS: ALBUMIN 3.1 g/dl (3.4-5.0); BILIRUBIN,TOTAL 0.4 mg/dL (0.2-1); BLOOD UREA NITROGEN 66.2 mg/dL (7-18); CALCIUM 9.5 mg/dL (8.5-10.1); MAGNESIUM 2.1 mg/dL (1.8-2.4); PHOSPHOROUS 3.9 mg/dL (2.5-4.9); POTASSIUM 4.2 mmol/L (3.5-5.1); TOT PROT 6.6 g/dl (6.4-8.2)
[2019-03-21 17:36] LABS: PH,URINE 5.5 (5.0-8.0); URINE APPEARANCE CLEAR; URINE BILIRUBIN NEGATIVE (NEGATIVE); URINE COLOR YELLOW; URINE GLUCOSE (UA) 3+ (NEGATIVE); URINE KETONE 1+ (NEGATIVE); URINE LEUK ESTERASE NEGATIVE (NEGATIVE); URINE NITRITE NEGATIVE (NEGATIVE); URINE PROTEIN NEGATIVE (NEGATIVE); URINE UROBILINOGEN 0.2 mg/dL (0.2-1.0)
--- NOTE | 2019-03-21 18:49 | PDOC ---
*Physical Exam - Vital Signs Last Vital Signs Temp Pulse Resp BP Pulse Ox 98.9 F 103 H 16 114/62 100 03/21/19 13:00 03/21/19 13:00 03/21/19 13:00 03/21/19 13:00 03/21/19 13:00 ED Treatment Course - LABORATORY CBC & Chemistry Diagram: 03/21/19 15:10 03/21/19 15:10 - ADDITIONAL ORDERS Additional order review: Laboratory Results 03/21/19 03/21/19 03/21/19 17:54 17:19 17:02 VBG pH POC VBG pCO2 POC VBG pO2 VBG HCO3 VBG O2 Sat (Shireen) VBG Base Excess Sodium Potassium Chloride Carbon Dioxide Anion Gap BUN Creatinine Est GFR (CKD-EPI)AfAm Est GFR (CKD-EPI)NonAf POC Glucometer 397 383 Random Glucose Calcium Phosphorus Magnesium Total Bilirubin AST ALT Alkaline Phosphatase Creatine Kinase Troponin I Total Protein Albumin Lipase Urine Color Yellow Urine Appearance Clear Urine pH 5.5 Ur Specific [place] 1.029 Urine Protein Negative Urine Glucose (UA) 3+ H Urine Ketones 1+ H Urine Blood Negative Urine Nitrite Negative Urine Bilirubin Negative Urine Urobilinogen 0.2 Ur Leukocyte Esterase Negative 03/21/19 03/21/19 03/21/19 15:10 15:10 15:10 VBG pH 7.39 POC VBG pCO2 33.5 L POC VBG pO2 52.7 H VBG HCO3 19.7 L VBG O2 Sat (Shireen) 81.9 H VBG Base Excess -4.2 L Sodium 137 Potassium 4.2 Chloride 103 Carbon Dioxide 21 Anion Gap 12 BUN 66.2 H Creatinine 1.0 Est GFR (CKD-EPI)AfAm 100.55 Est GFR (CKD-EPI)NonAf 86.76 POC Glucometer Random Glucose 486 H* Calcium 9.5 Phosphorus 3.9 Magnesium 2.1 Total Bilirubin 0.4 AST 27 ALT 28 Alkaline Phosphatase 134 H Creatine Kinase 75 Troponin I < 0.02 Total Protein 6.6 Albumin 3.1 L Lipase 178 Urine Color Urine Appearance Urine pH Ur Specific [place] Urine Protein Urine Glucose (UA) Urine Ketones Urine Blood Urine Nitrite Urine Bilirubin Urine Urobilinogen Ur Leukocyte Esterase 03/21/19 15:01 VBG pH POC VBG pCO2 POC VBG pO2 VBG HCO3 VBG O2 Sat (Shireen) VBG Base Excess Sodium Potassium Chloride Carbon Dioxide Anion Gap BUN Creatinine Est GFR (CKD-EPI)AfAm Est GFR (CKD-EPI)NonAf POC Glucometer 456 Random Glucose Calcium Phosphorus Magnesium Total Bilirubin AST ALT Alkaline Phosphatase Creatine Kinase Troponin I Total Protein Albumin Lipase Urine Color Urine Appearance Urine pH Ur Specific [place] Urine Protein Urine Glucose (UA) Urine Ketones Urine Blood Urine Nitrite Urine Bilirubin Urine Urobilinogen Ur Leukocyte Esterase 03/21/19 03/21/19 03/21/19 17:54 17:02 15:10 RBC 3.26 L MCV 88.7 MCHC 33.4 RDW 14.9 MPV 8.8 Neutrophils % 78.1 Lymphocytes % 12.7 Monocytes % 5.7 Eosinophils % 2.8 Basophils % 0.7 POC Glucometer 397 383 03/21/19 15:01 RBC MCV MCHC RDW MPV Neutrophils % Lymphocytes % Monocytes % Eosinophils % Basophils % POC Glucometer 456 - Medications Given in the ED: ED Medications Discontinued Medications Generic Name Dose Route Start Last Admin Trade Name Freq PRN Reason Stop Dose Admin Sodium Chloride 1,000 mls @ 1,000 mls/hr 03/21/19 14:08 03/21/19 15:34 Normal Saline - IV 03/21/19 15:07 1,000 mls/hr ASDIR STA Administration Sodium Chloride 1,000 mls @ 1,000 mls/hr 03/21/19 16:52 03/21/19 16:30 Normal Saline - IV 03/21/19 17:51 1,000 mls/hr ASDIR STA Administration Insulin Human Regular 6 units 03/21/19 16:12 03/21/19 16:24 Novolin R Vial *For Ivpush Or Iv Drip Only* IVPUSH 03/21/19 16:13 6 units ONCE ONE Administration Insulin Human Regular 4 units 03/21/19 17:10 03/21/19 17:22 Novolin R Vial *For Ivpush Or Iv Drip Only* IVPUSH 03/21/19 17:11 4 units ONCE ONE Administration Medical Decision Making - Medical Decision Making Patient signed out to me by TRACY Romero Labs reviewed with no AG noted Patient received 2 L of IVF and 10 units of insulin Initially, sugar was going down, but now going back up Patient mentioned only eating a few peanuts D/W Dr. Rangel - recommends admission for further sugar control Ordered for another liter of IVF Awaiting to hear back from hospitalist team 03/21/19 18:48 *DC/Admit/Observation/Transfer Diagnosis at time of Disposition: Hyperglycemia - Discharge Dispostion Condition at time of disposition: Stable Decision to Admit order: Yes - Referrals - Patient Instructions - Post Discharge Activity
--- NOTE | 2019-03-21 19:21 | PN ---
Teaching Attending Note Name of Resident: Larissa Hopkins ATTENDING PHYSICIAN STATEMENT I saw and evaluated the patient. I reviewed the resident's note and discussed the case with the resident. I agree with the resident's findings and plan as documented. SUBJECTIVE: Patient is a 53 year old man with PMH of HTN, HLD, Insulin-treated DM, Unspecified heart disease? (has defibrillator for arrythmia?) who presents with 2 days of generalized weakness, lightheadedness, headache and fatigue. He checked his sugar yesterday and this am, it was >500. No other complaints today , no fever/chills, no nausea, vomitng, diarrhea, abdominal pain, chest pain, SOB or back pain. Denies urinary symptoms, no cough, no URI symptoms. Denies alcohol/drug use. Nonsmoker. OBJECTIVE: Alert Vital Signs Period Temp Pulse Resp BP Sys/Dukes Pulse Ox Last 24 Hr 98.9 F 103 16 114/62 100 HEENT: No Jaundice, eye redness or discharge, PERRLA, EOMI. Normocephalic, atraumatic. External ears are normal and hearing is grossly intact. No nasal discharge. Neck: Supple, nontender. No palpable adenopathy or thyromegaly. No JVD Chest: Good effort. Clear to auscultation and percussion. Heart: Regular. No S3, rub or murmur Abdomen: Not distended, soft, nontender and no HSM. No rebound or guarding. Normal bowel sounds. Ext: Peripheral pulses intact. No leg edema. Skin: Warm and dry. No petechiae, rash or ecchymosis. Neuro: Alert. Oriented x3. CN 2-12 grossly intact. Sensation grossly intact in all four extremities and DTR are symmetric. Psych: Appropriate mood and affect. Good insight. Home Medications Medication Instructions Recorded Amlodipine Besylate [Norvasc -] 5 mg PO DAILY 09/22/15 Lisinopril [Prinivil -] 40 mg PO DAILY 09/22/15 Simvastatin [Zocor -] 20 mg PO HS 09/22/15 metFORMIN HCL [Metformin HCl ER] 1,000 mg PO BID #60 tab.er.24 01/11/17 Metoprolol Succinate [Toprol Xl -] 100 mg PO DAILY 03/21/19 Abnormal Lab Results 03/21/19 03/21/19 03/21/19 15:10 15:10 15:10 RBC 3.26 L Hgb 9.7 L Hct 28.9 L POC VBG pCO2 33.5 L POC VBG pO2 52.7 H VBG HCO3 19.7 L VBG O2 Sat (Shireen) 81.9 H VBG Base Excess -4.2 L BUN 66.2 H Random Glucose 486 H* Alkaline Phosphatase 134 H Albumin 3.1 L Urine Glucose (UA) Urine Ketones 03/21/19 17:19 RBC Hgb Hct POC VBG pCO2 POC VBG pO2 VBG HCO3 VBG O2 Sat (Shieren) VBG Base Excess BUN Random Glucose Alkaline Phosphatase Albumin Urine Glucose (UA) 3+ H Urine Ketones 1+ H ASSESSMENT AND PLAN: 1. Uncontrolled DM - No obvious precipitating factor and not in DKA. Patient started on IV fluids and 10 units of IV insulin in the ER. For now, we will hold the home diabetes drugs and implement sliding scale insulin regimen. A recent HbA1c was >11. Monitor electrolytes and replete when indicated. EKG shows NSR with incomplete RBBB. Will provide comprehensive diabetes care with patient teaching and counseling about the importance of adherence to prescribed diabetes regimen, euglycemia, eye care and foot care. Will continue comprehensive care of all his comorbid conditions. 2. Hypoalbuminemia - Possibly due to combined effects of malnutrition and inflammation associated with comorbid chronic conditions. Will ensure adequate dietary protein intake and also consult recovery room nurse. 3. CKD? - Also likely has superimposed NICOLE due to osmotic diuresis. Will hydrate , monitor urine output, get kidney sonogram and consult nephrology. Avoid nephrotoxic agents such as NSAIDS, aminoglycosides, contrast dyes and certain Alternative medicine products. 4. Anemia - May be partly due to kidney disease. Will do basic anemia work up including serial stool guaiacs, reticulocyte count and iron studies. Would benefit from Procrit therapy once iron replete. 5. Obesity Counseled on the risks associated with obesity. Will provide patient all the necessary assistance, counseling and positive reinforcement to facilitate weight loss. Consult recovery room nurse. 6. Hypertension - Restart suitable outpatient antihypertensive drugs when clinically appropriate. Revise regimen to ensure [id number] excellent BP control and prevocational/rehabilitation counselor patient on the injurious effects of uncontrolled hypertension. Nonpharmacologic measures to control hypertension like weight loss , salt restriction and exercise discussed. Importance of adherence to treatment regimen and attainment of normotension emphasized. 7. DVT prophylaxis - Heparin 5000u sq tid. 8. Advance directives - Full code
[2019-03-21] MEDS ORDERED: ACETAMINOPHEN 325 MG TABLET (FP) PO PRN (21:26)
[2019-03-21] MEDS ORDERED: ACETAMINOPHEN 325 MG TABLET (FP) ONE (21:33)
[2019-03-21] MEDS ORDERED: ENOXAPARIN NA (PORCINE) 40 MG/0.4 ML DISP.SYRIN SQ ONE (21:33)
[2019-03-21] MEDS: INSULIN SLIDING SCALE (NOVOLOG) 1 VIAL SQ SCH (21:40)
[2019-03-21] MEDS ORDERED: INSULIN SLIDING SCALE (NOVOLOG) 1 VIAL SQ SCH (22:00)
[2019-03-21] MEDS: SODIUM CHLORIDE 1,000 ML IV SCH (22:13)
--- NOTE | 2019-03-21 22:45 | HP ---
CHIEF COMPLAINT: generalized weakness PCP: from [facility] HISTORY OF PRESENT ILLNESS: Patient is a 53 year old male with past medical history of HTN, HLD, and IDDM, presented to the ED due to generalized weakness that started yesterday afternoon. Patient reported he was at work when he just suddenly felt weak and dizzy. He checked his blood glucose at that time and was noted to be >500. Patient went home and started feeling better. He took his dose of Levemir 20 units. This morning, patient woke up and was feeling well. He checked his blood sugar and was 205. During the day, while at work, he started feeling weak and dizzy again, checked his blood sugar >500. Patient reported he has previous episodes of this symptoms and found to be hyperglycemic. He follows up irregularly with his PCP, where his Levemir has been titrated up from 10 to 20units. He also takes Metformin 1000mg bid and was started on insulin sliding scale but was not compliant with the sliding scale because he had difficulty doing it while at work. Last HbA1c >3 months ago was >11. Patient denies any fever, chills, headache, chest pain, SOB, abdominal pain, diarrhea, urinary symptoms. ER course was notable for: (1)Insulin novolog 10mg IV (2)IV NS x3L (3) Recent Travel:denies PAST MEDICAL HISTORY: HTN HLD IDDM PAST SURGICAL HISTORY: none Social History: Smoking:denies Alcohol:denies Drugs: denies Family History: Allergies No Known Allergies Allergy (Verified 03/21/19 13:17) HOME MEDICATIONS: Home Medications Medication Instructions Recorded Amlodipine Besylate [Norvasc -] 5 mg PO DAILY 09/22/15 Lisinopril [Prinivil -] 40 mg PO DAILY 09/22/15 Simvastatin [Zocor -] 20 mg PO HS 09/22/15 metFORMIN HCL [Metformin HCl ER] 1,000 mg PO BID #60 tab.er.24 01/11/17 Metoprolol Succinate [Toprol Xl -] 100 mg PO DAILY 03/21/19 REVIEW OF SYSTEMS CONSTITUTIONAL: Absent: fever, chills, diaphoresis, malaise, loss of appetite, weight change HEENT: Absent: rhinorrhea, nasal congestion, throat pain, throat swelling, difficulty swallowing, mouth swelling, ear pain, eye pain, visual changes CARDIOVASCULAR: Absent: chest pain, syncope, palpitations, irregular heart rate, lightheadedness , peripheral edema RESPIRATORY: Absent: cough, shortness of breath, dyspnea with exertion, orthopnea, wheezing, stridor, hemoptysis GASTROINTESTINAL: Absent: abdominal pain, abdominal distension, nausea, vomiting, diarrhea, constipation, melena, hematochezia GENITOURINARY: Absent: dysuria, frequency, urgency, hesitancy, hematuria, flank pain, genital pain MUSCULOSKELETAL: Absent: myalgia, arthralgia, joint swelling, back pain, neck pain SKIN: Absent: rash, itching, pallor HEMATOLOGIC/IMMUNOLOGIC: Absent: easy bleeding, easy bruising, lymphadenopathy, frequent infections ENDOCRINE: Absent: unexplained weight gain, unexplained weight loss, heat intolerance, cold intolerance NEUROLOGIC: Absent: headache, focal weakness or paresthesias, dizziness, unsteady gait, seizure, mental status changes, bladder or bowel incontinence PSYCHIATRIC: Absent: anxiety, depression, suicidal or homicidal ideation, hallucinations. PHYSICAL EXAMINATION Vital Signs - 24 hr 03/21/19 03/21/19 13:00 19:46 Temperature 98.9 F 97.8 F Pulse Rate 103 H Pulse Rate [ 86 Right Radial] Respiratory 16 20 Rate Blood Pressure 114/62 Blood Pressure 93/51 L [Left Arm] O2 Sat by Pulse 100 98 Oximetry (%) GENERAL: Awake, alert, and fully oriented, in no acute distress. HEAD: Normal with no signs of trauma. EYES: PERRLA, EOMI, extraocular movements intact, sclera anicteric, conjunctiva clear. EARS, NOSE, THROAT: Moist mucous membranes. NECK: Normal range of motion, supple without lymphadenopathy, JVD, or masses. LUNGS: Breath sounds equal, clear to auscultation bilaterally. HEART: Regular rate and rhythm, normal S1 and S2 without murmur, rub or gallop. ABDOMEN: Soft, nontender, not distended, normoactive bowel sounds. MUSCULOSKELETAL: Normal range of motion at all joints. UPPER EXTREMITIES: 2+ pulses, warm, well-perfused. No peripheral edema. LOWER EXTREMITIES: 2+ pulses, warm, well-perfused. No peripheral edema. NEUROLOGICAL: Cranial nerves II-XII intact. Normal speech. Normal gait. PSYCHIATRIC: Cooperative. Good eye contact. Appropriate mood and affect. SKIN: Warm, dry, normal turgor . Laboratory Results - last 24 hr 03/21/19 03/21/19 03/21/19 15:01 15:10 15:10 WBC RBC Hgb Hct MCV MCH MCHC RDW Plt Count MPV Absolute Neuts (auto) Neutrophils % Lymphocytes % Monocytes % Eosinophils % Basophils % Nucleated RBC % VBG pH 7.39 POC VBG pCO2 33.5 L POC VBG pO2 52.7 H VBG HCO3 19.7 L VBG O2 Sat (Shireen) 81.9 H VBG Base Excess -4.2 L Sodium Potassium Chloride Carbon Dioxide Anion Gap BUN Creatinine Est GFR (CKD-EPI)AfAm Est GFR (CKD-EPI)NonAf POC Glucometer 456 Random Glucose Calcium Phosphorus Magnesium Total Bilirubin AST ALT Alkaline Phosphatase Creatine Kinase 75 Troponin I < 0.02 Total Protein Albumin Lipase Urine Color Urine Appearance Urine pH Ur Specific [place] Urine Protein Urine Glucose (UA) Urine Ketones Urine Blood Urine Nitrite Urine Bilirubin Urine Urobilinogen Ur Leukocyte Esterase 03/21/19 03/21/19 03/21/19 15:10 15:10 17:02 WBC 6.8 RBC 3.26 L Hgb 9.7 L Hct 28.9 L MCV 88.7 MCH 29.7 MCHC 33.4 RDW 14.9 Plt Count 157 D MPV 8.8 Absolute Neuts (auto) 5.3 Neutrophils % 78.1 Lymphocytes % 12.7 Monocytes % 5.7 Eosinophils % 2.8 Basophils % 0.7 Nucleated RBC % 0 VBG pH POC VBG pCO2 POC VBG pO2 VBG HCO3 VBG O2 Sat (Shireen) VBG Base Excess Sodium 137 Potassium 4.2 Chloride 103 Carbon Dioxide 21 Anion Gap 12 BUN 66.2 H Creatinine 1.0 Est GFR (CKD-EPI)AfAm 100.55 Est GFR (CKD-EPI)NonAf 86.76 POC Glucometer 383 Random Glucose 486 H* Calcium 9.5 Phosphorus 3.9 Magnesium 2.1 Total Bilirubin 0.4 AST 27 ALT 28 Alkaline Phosphatase 134 H Creatine Kinase Troponin I Total Protein 6.6 Albumin 3.1 L Lipase 178 Urine Color Urine Appearance Urine pH Ur Specific [place] Urine Protein Urine Glucose (UA) Urine Ketones Urine Blood Urine Nitrite Urine Bilirubin Urine Urobilinogen Ur Leukocyte Esterase 03/21/19 03/21/19 03/21/19 17:19 17:54 21:38 WBC RBC Hgb Hct MCV MCH MCHC RDW Plt Count MPV Absolute Neuts (auto) Neutrophils % Lymphocytes % Monocytes % Eosinophils % Basophils % Nucleated RBC % VBG pH POC VBG pCO2 POC VBG pO2 VBG HCO3 VBG O2 Sat (Shireen) VBG Base Excess Sodium Potassium Chloride Carbon Dioxide Anion Gap BUN Creatinine Est GFR (CKD-EPI)AfAm Est GFR (CKD-EPI)NonAf POC Glucometer 397 392 Random Glucose Calcium Phosphorus Magnesium Total Bilirubin AST ALT Alkaline Phosphatase Creatine Kinase Troponin I Total Protein Albumin Lipase Urine Color Yellow Urine Appearance Clear Urine pH 5.5 Ur Specific [place] 1.029 Urine Protein Negative Urine Glucose (UA) 3+ H Urine Ketones 1+ H Urine Blood Negative Urine Nitrite Negative Urine Bilirubin Negative Urine Urobilinogen 0.2 Ur Leukocyte Esterase Negative ASSESSMENT/PLAN: Patient is a 53 year old male with past medical history of HTN, HLD, and IDDM, presented to the ED due to generalized weakness that started yesterday afternoon. #Uncontrolled DM -not in DKA -received 3L NS bolus and 10units IV insulin at the ED -will place patient on sliding scale regimen -BGM ACHS -will hold levemir 20u tonight -hold home Metformin 1000mg bid -IV hydration -will continue to monitor bmp -would need an eye and foot doctor upon discharge #Normocytic anemia -currently at baseline (9-10) -likely anemia of chronic disease -will order stool occult, iron studies, retic ct #HTN -Continue home meds Metoprolol 100mg daily, Lisinopril 40mg daily, Amlodipine 5mg daily #HLD -Continue Simvastatin -will order lipid profile #FEN -Iv NS @75cc/hr -Electrolytes wnl, routine bmp monitoring -Diabetic, sodium restricted diet #Prophylaxis -Lovenox 40mg sq daily #Disposition -full code -admit to med surg Visit type - Emergency Visit Emergency Visit: Yes ED Registration Date: 03/21/19 Care time: The patient presented to the Emergency Department on the above date and was hospitalized for further evaluation of their emergent condition. - New Patient This patient is new to me today: Yes Date on this admission: 03/21/19 - Critical Care Critical Care patient: No ATTENDING PHYSICIAN STATEMENT I saw and evaluated the patient. I reviewed the resident's note and discussed the case with the resident. I agree with the resident's findings and plan as documented. SUBJECTIVE: OBJECTIVE: ASSESSMENT AND PLAN:
[2019-03-22 02:22] VITALS: BMI 33.5
[2019-03-22] MEDS ORDERED: INSULIN (NOVOLOG) ASPART 100 UNITS/ML 10ML VIAL ONE (06:56)
[2019-03-22] MEDS: INSULIN SLIDING SCALE (NOVOLOG) 1 VIAL SQ SCH ×4 (06:56→21:15)
[2019-03-22] MEDS: HEPARIN NA (PORCINE) 5,000 UNITS/ML 1ML VIAL SQ SCH ×3 (06:57→21:15)
[2019-03-22 08:02] LABS: BASO % 0.8 % (0-2.0); EOS % 3.6 % (0-4.5); HEMATOCRIT 23.5 % (35.4-49); HEMOGLOBIN 7.8 GM/dL (11.7-16.9); LYMPH % 28.9 % (8-40); MCH 29.4 pg (25.7-33.7); MEAN PLT VOLUME 8.9 fl (7.5-11.1); MONO % 7.9 % (3.8-10.2); NEUT % 58.8 % (42.8-82.8); PLATELET COUNT 106 K/MM3 (134-434); RBC 2.64 M/mm3 (4.00-5.60); RDW 14.9 % (11.9-15.9); WHITE BLOOD COUNT 4.1 K/mm3 (4.0-10.0)
[2019-03-22 08:20] LABS: BLOOD UREA NITROGEN 43.1 mg/dL (7-18); CALCIUM 7.9 mg/dL (8.5-10.1); CREATININE 0.6 mg/dL (0.55-1.3); MAGNESIUM 1.9 mg/dL (1.8-2.4); PHOSPHOROUS 3.4 mg/dL (2.5-4.9)
--- NOTE | 2019-03-22 08:59 | PN ---
Teaching Attending Note Name of Resident: Annette Funk ATTENDING PHYSICIAN STATEMENT I saw and evaluated the patient. I reviewed the resident's note and discussed the case with the resident. I agree with the resident's findings and plan as documented. SUBJECTIVE: Patient is a 53 year old male with PMHx of HTN, HLD, and IDDM, presented to the ED due to generalized weakness feeling dizzy and weak. Patient's last hemoglobin A1c was more than 11. OBJECTIVE: Vital Signs Temperature 97.8 F 03/22/19 05:58 Pulse Rate 70 03/22/19 05:58 Respiratory Rate 18 03/22/19 05:58 Blood Pressure 99/60 03/22/19 05:58 O2 Sat by Pulse Oximetry (%) 98 03/22/19 00:55 GENERAL: The patient is awake, alert, and fully oriented, in no acute distress. HEAD: Normal with no signs of trauma. EYES: PERRL, extraocular movements intact, sclera anicteric, conjunctiva clear. ENT: Ears normal, oropharynx clear without exudates, moist mucous membranes. NECK: Trachea midline, full range of motion, supple. LUNGS: Breath sounds equal, clear to auscultation bilaterally, no wheezes, no crackles, no accessory muscle use. HEART: Regular rate and rhythm, S1, S2 without murmur, rub or gallop. ABDOMEN: Soft, nontender, nondistended, normoactive bowel sounds, no guarding, no rebound, positive for hepatomegaly, no masses. EXTREMITIES: 2+ pulses, warm, well-perfused, no edema. NEUROLOGICAL: Cranial nerves II through XII grossly intact. Normal speech, gait not observed. PSYCH: Normal mood, normal affect. SKIN: Warm, dry, normal turgor, no rashes or lesions noted CBCD WBC 6.8 K/mm3 (4.0-10.0) 03/21/19 15:10 RBC 3.26 M/mm3 (4.00-5.60) L 03/21/19 15:10 Hgb 9.7 GM/dL (11.7-16.9) L 03/21/19 15:10 Hct 28.9 % (35.4-49) L 03/21/19 15:10 MCV 88.7 fl (80-96) 03/21/19 15:10 MCHC 33.4 g/dl (32.0-35.9) 03/21/19 15:10 RDW 14.9 % (11.9-15.9) 03/21/19 15:10 Plt Count 157 K/MM3 (134-434) D 03/21/19 15:10 MPV 8.8 fl (7.5-11.1) 03/21/19 15:10 CMP Sodium 142 mmol/L (136-145) 03/22/19 05:30 Potassium 4.0 mmol/L (3.5-5.1) 03/22/19 05:30 Chloride 110 mmol/L (98-107) H 03/22/19 05:30 Carbon Dioxide 22 mmol/L (21-32) 03/22/19 05:30 Anion Gap 9 MMOL/L (8-16) 03/22/19 05:30 BUN 43.1 mg/dL (7-18) H 03/22/19 05:30 Creatinine 0.6 mg/dL (0.55-1.3) 03/22/19 05:30 Random Glucose 320 mg/dL (74-106) H 03/22/19 05:30 Calcium 7.9 mg/dL (8.5-10.1) L 03/22/19 05:30 Total Bilirubin 0.4 mg/dL (0.2-1) 03/21/19 15:10 AST 27 U/L (15-37) 03/21/19 15:10 ALT 28 U/L (13-61) 03/21/19 15:10 Alkaline Phosphatase 134 U/L (45-117) H 03/21/19 15:10 Total Protein 6.6 g/dl (6.4-8.2) 03/21/19 15:10 Albumin 3.1 g/dl (3.4-5.0) L 03/21/19 15:10 CARDIAC ENZYMES Creatine Kinase 75 U/L (26-308) 03/21/19 15:10 Troponin I < 0.02 ng/ml (0.00-0.05) 03/21/19 15:10 Current Medications Generic Name Dose Route Start Last Admin Trade Name Freq PRN Reason Stop Dose Admin Acetaminophen 650 mg 03/21/19 21:26 03/21/19 21:49 Tylenol - PO 650 mg Q6H PRN Administration Fever Or Pain Amlodipine Besylate 5 mg 03/22/19 10:00 Norvasc - PO DAILY [facility] Atorvastatin Calcium 10 mg 03/22/19 22:00 Lipitor - PO HS [facility] Heparin Sodium (Porcine) 5,000 unit 03/22/19 06:00 03/22/19 06:57 Heparin - SQ 5,000 unit TID KORIN Administration Sodium Chloride 1,000 mls @ 75 mls/hr 03/21/19 21:30 03/21/19 22:13 Normal Saline - IV 75 mls/hr ASDIR [facility] Administration Insulin Aspart 1 vial 03/21/19 22:00 03/22/19 06:56 Novolog Vial Sliding Scale - SQ 10 unit ACHS KORIN Administration Protocol Lisinopril 40 mg 03/22/19 10:00 Prinivil PO DAILY [facility] Metoprolol Succinate 100 mg 03/22/19 10:00 Toprol Xl - PO DAILY [facility] Home Medications Medication Instructions Recorded Amlodipine Besylate [Norvasc -] 5 mg PO DAILY 09/22/15 Lisinopril [Prinivil -] 40 mg PO DAILY 09/22/15 Simvastatin [Zocor -] 20 mg PO HS 09/22/15 metFORMIN HCL [Metformin HCl ER] 1,000 mg PO BID #60 tab.er.24 01/11/17 Insulin (Levemir) [Levemir Vial] 20 unit SQ HS 03/21/19 Metoprolol Succinate [Toprol Xl -] 100 mg PO DAILY 03/21/19 Urine Test Results Urine Color Yellow 03/21/19 17: Urine Appearance Clear 03/21/19 17:19 Urine pH 5.5 (5.0-8.0) 03/21/19 17:19 Ur Specific [place] 1.029 (1.010-1.035) 03/21/19 17:19 Urine Protein Negative (NEGATIVE) 03/21/19 17:19 Urine Glucose (UA) 3+ (NEGATIVE) H 03/21/19 17:19 Urine Ketones 1+ (NEGATIVE) H 03/21/19 17:19 Urine Blood Negative (NEGATIVE) 03/21/19 17:19 Urine Nitrite Negative (NEGATIVE) 03/21/19 17:19 Urine Bilirubin Negative (NEGATIVE) 03/21/19 17:19 Ur Leukocyte Esterase Negative (NEGATIVE) 03/21/19 17:19 ASSESSMENT AND PLAN: Patient is a 53 year old male with PMhx of HTN, HLD, and IDDM, presented to the ED due to generalized weakness feeling dizzy and weak, past hgb 1ac is more than 11 #T1DM on SS with coverage will add levemir, will consult dr Ruiz , continue to hold metformin , will continue with levemir in am 20u , and 5 units hs , continue IV hydration would need an eye and foot doctor upon discharge #HTN: continue home meds Metoprolol 100mg daily, Lisinopril 40mg daily, Amlodipine 5mg daily #Anemia with a baseline (9-10), stool occult, iron studies, retic ct ordered #HLD continue with lipitor , follow lipid profile DVT Prophylaxis: Lovenox 40mg sq daily full code
[2019-03-22] MEDS: LISINOPRIL 20 MG TABLET (FP) PO SCH (09:02)
[2019-03-22] MEDS: amLODIPine BESYLATE 5 MG TABLET (FP) PO SCH (09:02)
[2019-03-22] MEDS: SODIUM CHLORIDE 1,000 ML IV SCH (09:03)
--- NOTE | 2019-03-22 09:47 | CONSULT ---
Consult Consult Specialty:: Endocrinology Referred by:: Dr Vázquez Reason for Consultation:: Hyperglycemia - History of Present Illness Chief Complaint: Hyperglycemia History of Present Illness: This is a 53 year old man with h/o HTN, HLD, and T2DM from 2014 who presented to the ED due to generalized weakness that started yesterday afternoon. Patient reported he was at work when he just suddenly felt weak and dizzy. He checked his blood glucose at that time and was noted to be >500. Patient went home and started feeling better. He took his dose of Levemir 20 units. This morning, patient woke up and was feeling well. He checked his blood sugar and was 205. During the day, while at work, he started feeling weak and dizzy again, checked his blood sugar >500. Patient reported he has previous episodes of this symptoms and found to be hyperglycemic. He follows up irregularly with his PCP, where his Levemir has been titrated up from 10 to 20units. He also takes Metformin 1000mg bid and was started on insulin sliding scale but was not compliant with the sliding scale because he had difficulty doing it while at work. Last HbA1c >3 months ago was >11. FS at home usually 200 to 300s. No hypos. Denies polyuria, polydipsia. Has blurred vision occasionally. Last saw Oph about a year and half ago. Denies paresthesia of feet. Also c/o blood in "spit" a few days ago and black stool since yesterday. Pt however is on Iron tablets. - History Source History Provided By: Patient, Medical Record - Past Medical History Cardio/Vascular: Yes: HTN, Hyperlipdemia Gastrointestinal: Yes: Other (Umbilical hernia) Endocrine: Yes: Diabetes Mellitus - Alcohol/Substance Use Hx Alcohol Use: No - Smoking History Smoking history: Smoker current status UNK Have you smoked in the past 12 months: No Aproximately how many cigarettes per day: 0 If you are a former smoker, when did you quit?: Home Medications - Allergies Allergies/Adverse Reactions: Allergies Allergy/AdvReac Type Severity Reaction Status Date / Time No Known Allergies Allergy Verified 03/21/19 13:17 - Home Medications Home Medications: Ambulatory Orders Amlodipine Besylate [Norvasc -] 5 mg PO DAILY 09/22/15 Lisinopril [Prinivil -] 40 mg PO DAILY 09/22/15 Simvastatin [Zocor -] 20 mg PO HS 09/22/15 metFORMIN HCL [Metformin HCl ER] 1,000 mg PO BID #60 tab.er.24 01/11/17 Insulin (Levemir) [Levemir Vial] 20 unit SQ HS 03/21/19 Metoprolol Succinate [Toprol Xl -] 100 mg PO DAILY 03/21/19 Family Disease History - Family Disease History Family Disease History: Diabetes: Father Review of Systems - Review of Systems Constitutional: reports: No Symptoms Eyes: reports: No Symptoms HENT: reports: No Symptoms Neck: reports: No Symptoms Cardiovascular: reports: No Symptoms Respiratory: reports: No Symptoms Gastrointestinal: reports: No Symptoms Genitourinary: reports: No Symptoms Musculoskeletal: reports: No Symptoms Integumentary: reports: No Symptoms Neurological: reports: No Symptoms Endocrine: reports: No Symptoms Hematology/Lymphatic: reports: No Symptoms Physical Exam Vital Signs: Vital Signs Temperature 98.0 F 03/22/19 09:07 Pulse Rate 78 03/22/19 09:07 Respiratory Rate 18 03/22/19 09:07 Blood Pressure 127/75 03/22/19 09:07 O2 Sat by Pulse Oximetry (%) 98 03/22/19 00:55 Constitutional: Yes: No Distress, Calm Eyes: Yes: Conjunctiva Clear, EOM Intact HENT: Yes: Atraumatic, Normocephalic Neck: Yes: Supple, Trachea Midline Cardiovascular: Yes: Regular Rate and Rhythm Respiratory: Yes: Regular, CTA Bilaterally Gastrointestinal: Yes: Normal Bowel Sounds, Soft Extremities: Yes: WNL Edema: No Neurological: Yes: Alert, Oriented Labs: CBC, BMP 03/22/19 05:30 03/22/19 05:30 Assessment/Plan AP: T2DM Uncontrolled: probably sec to lack of premeal Insulin coverage Diet exercise discussed Diabetes education done Nutrition consult Levemir 20 units daily for now. Will increase gradually if fasting blood sugar remain >120 Novolog SS coverage. Adjust dose as necessary GLP1 and or SGLT2s could be added as outpt to decrease Insulin requirement Anemia/Drop in H/H W/u in progress Rec GI Consult Discussed with Hospitalist. Subclinical Hyperthyroidism vs Sick Euthyroid Rpt TFT as outpt. HTN HLD I will be away until 03.25.19. Dr Camilo is covering. I can be reached at [phone] if there are any questions
[2019-03-22] MEDS ORDERED: ENOXAPARIN NA (PORCINE) 40 MG/0.4 ML DISP.SYRIN SQ SCH (10:00)
[2019-03-22] MEDS: INSULIN (LEVEMIR) 100 UNITS/ML UNITS SQ SCH (10:43)
--- NOTE | 2019-03-22 14:09 | EKG ---
Test Reason : Blood Pressure : / mmHG Vent. Rate : 091 BPM Atrial Rate : 091 BPM P-R Int : 146 ms QRS Dur : 100 ms QT Int : 356 ms P-R-T Axes : 032 -21 013 degrees QTc Int : 437 ms NORMAL SINUS RHYTHM POSSIBLE LEFT ATRIAL ENLARGEMENT LOW VOLTAGE QRS INCOMPLETE RIGHT BUNDLE BRANCH BLOCK LEFTWARD AXIS WHEN COMPARED WITH ECG OF 08-JAN-2017 03:11, NO SIGNIFICANT CHANGE WAS FOUND Confirmed by JEANNIE LAKE MD ([id number]) on 03/22/2019 2:08:43 PM Referred By: Confirmed By:JEANNIE LAKE MD
[2019-03-22 15:00] LABS: RETICULOCYTES 2.41 % (0.5-1.5)
--- NOTE | 2019-03-22 15:37 | PN ---
Physical Exam: SUBJECTIVE: Patient seen and examined at bedside- no acute events overnight; patient states that he is feeling better- he denies any pain- no CP/SOB/N/V states his sugars have been very poorly controlled for a week OBJECTIVE: Vital Signs Period Temp Pulse Resp BP Sys/Dukes Pulse Ox Last 24 Hr 97.8 F-98.4 F 70-88 18-20 90-127/43-75 98-98 GENERAL: The patient is awake, alert, and fully oriented, in no acute distress. EYES:pEERLA; EOMI; no scleral ictereus . NECK: no JVD; no LUNGS: Breath sounds equal, clear to auscultation bilaterally, no wheezes, no crackles, no accessory muscle use. HEART: Regular rate and rhythm, S1, S2 without murmur, rub or gallop. ABDOMEN: soft; NT/ND +BS in all 4 quadrants. EXTREMITIES: 2+ pulses, warm, well-perfused, no edema. PSYCH: Normal mood, normal affect. SKIN: Warm, dry, normal turgor, no rashes or lesions noted Laboratory Results - last 24 hr 03/21/19 03/21/19 03/21/19 15:10 15:10 15:10 WBC 6.8 RBC 3.26 L Hgb 9.7 L Hct 28.9 L MCV 88.7 MCH 29.7 MCHC 33.4 RDW 14.9 Plt Count 157 D MPV 8.8 Absolute Neuts (auto) 5.3 Neutrophils % 78.1 Lymphocytes % 12.7 Monocytes % 5.7 Eosinophils % 2.8 Basophils % 0.7 Nucleated RBC % 0 Retic Count Sodium 137 Potassium 4.2 Chloride 103 Carbon Dioxide 21 Anion Gap 12 BUN 66.2 H Creatinine 1.0 Est GFR (CKD-EPI)AfAm 100.55 Est GFR (CKD-EPI)NonAf 86.76 POC Glucometer Random Glucose 486 H* Hemoglobin A1c % Calcium 9.5 Phosphorus 3.9 Magnesium 2.1 Iron TIBC Iron Saturation Unsaturated IBC Ferritin Total Bilirubin 0.4 AST 27 ALT 28 Alkaline Phosphatase 134 H Creatine Kinase 75 Troponin I < 0.02 Total Protein 6.6 Albumin 3.1 L Triglycerides Cholesterol Total LDL Cholesterol HDL Cholesterol Lipase 178 TSH Urine Color Urine Appearance Urine pH Ur Specific [place] Urine Protein Urine Glucose (UA) Urine Ketones Urine Blood Urine Nitrite Urine Bilirubin Urine Urobilinogen Ur Leukocyte Esterase 03/21/19 03/21/19 03/21/19 17:02 17:19 17:54 WBC RBC Hgb Hct MCV MCH MCHC RDW Plt Count MPV Absolute Neuts (auto) Neutrophils % Lymphocytes % Monocytes % Eosinophils % Basophils % Nucleated RBC % Retic Count Sodium Potassium Chloride Carbon Dioxide Anion Gap BUN Creatinine Est GFR (CKD-EPI)AfAm Est GFR (CKD-EPI)NonAf POC Glucometer 383 397 Random Glucose Hemoglobin A1c % Calcium Phosphorus Magnesium Iron TIBC Iron Saturation Unsaturated IBC Ferritin Total Bilirubin AST ALT Alkaline Phosphatase Creatine Kinase Troponin I Total Protein Albumin Triglycerides Cholesterol Total LDL Cholesterol HDL Cholesterol Lipase TSH Urine Color Yellow Urine Appearance Clear Urine pH 5.5 Ur Specific [place] 1.029 Urine Protein Negative Urine Glucose (UA) 3+ H Urine Ketones 1+ H Urine Blood Negative Urine Nitrite Negative Urine Bilirubin Negative Urine Urobilinogen 0.2 Ur Leukocyte Esterase Negative 03/21/19 03/22/19 03/22/19 21:38 05:30 05:30 WBC 4.1 RBC 2.64 L Hgb 7.8 L Hct 23.5 L D MCV 89.0 MCH 29.4 MCHC 33.0 RDW 14.9 Plt Count 106 L D MPV 8.9 Absolute Neuts (auto) 2.4 Neutrophils % 58.8 D Lymphocytes % 28.9 D Monocytes % 7.9 Eosinophils % 3.6 Basophils % 0.8 Nucleated RBC % 0 Retic Count 2.41 H Sodium 142 Potassium 4.0 Chloride 110 H Carbon Dioxide 22 Anion Gap 9 BUN 43.1 H Creatinine 0.6 Est GFR (CKD-EPI)AfAm 134.92 Est GFR (CKD-EPI)NonAf 116.41 POC Glucometer 392 Random Glucose 320 H Hemoglobin A1c % Calcium 7.9 L Phosphorus 3.4 Magnesium 1.9 Iron TIBC Iron Saturation Unsaturated IBC Ferritin Total Bilirubin AST ALT Alkaline Phosphatase Creatine Kinase Troponin I Total Protein Albumin Triglycerides 223 H Cholesterol 161 Total LDL Cholesterol 89 HDL Cholesterol 30 L Lipase TSH 0.27 L D Urine Color Urine Appearance Urine pH Ur Specific [place] Urine Protein Urine Glucose (UA) Urine Ketones Urine Blood Urine Nitrite Urine Bilirubin Urine Urobilinogen Ur Leukocyte Esterase 03/22/19 03/22/19 03/22/19 05:30 05:30 06:54 WBC RBC Hgb Hct MCV MCH MCHC RDW Plt Count MPV Absolute Neuts (auto) Neutrophils % Lymphocytes % Monocytes % Eosinophils % Basophils % Nucleated RBC % Retic Count Sodium Potassium Chloride Carbon Dioxide Anion Gap BUN Creatinine Est GFR (CKD-EPI)AfAm Est GFR (CKD-EPI)NonAf POC Glucometer 323 Random Glucose Hemoglobin A1c % 13.6 H Calcium Phosphorus Magnesium Iron 31 L TIBC 281 Iron Saturation 11 L Unsaturated IBC 250 Ferritin 26.9 Total Bilirubin AST ALT Alkaline Phosphatase Creatine Kinase Troponin I Total Protein Albumin Triglycerides Cholesterol Total LDL Cholesterol HDL Cholesterol Lipase TSH Urine Color Urine Appearance Urine pH Ur Specific [place] Urine Protein Urine Glucose (UA) Urine Ketones Urine Blood Urine Nitrite Urine Bilirubin Urine Urobilinogen Ur Leukocyte Esterase 03/22/19 11:28 WBC RBC Hgb Hct MCV MCH MCHC RDW Plt Count MPV Absolute Neuts (auto) Neutrophils % Lymphocytes % Monocytes % Eosinophils % Basophils % Nucleated RBC % Retic Count Sodium Potassium Chloride Carbon Dioxide Anion Gap BUN Creatinine Est GFR (CKD-EPI)AfAm Est GFR (CKD-EPI)NonAf POC Glucometer 326 Random Glucose Hemoglobin A1c % Calcium Phosphorus Magnesium Iron TIBC Iron Saturation Unsaturated IBC Ferritin Total Bilirubin AST ALT Alkaline Phosphatase Creatine Kinase Troponin I Total Protein Albumin Triglycerides Cholesterol Total LDL Cholesterol HDL Cholesterol Lipase TSH Urine Color Urine Appearance Urine pH Ur Specific [place] Urine Protein Urine Glucose (UA) Urine Ketones Urine Blood Urine Nitrite Urine Bilirubin Urine Urobilinogen Ur Leukocyte Esterase Active Medications Generic Name Dose Route Start Last Admin Trade Name Rogelioq PRN Reason Stop Dose Admin Acetaminophen 650 mg 03/21/19 21:26 03/21/19 21:49 Tylenol - PO 650 mg Q6H PRN Administration Fever Or Pain Amlodipine Besylate 5 mg 03/22/19 10:00 03/22/19 09:02 Norvasc - PO 5 mg DAILY KORIN Administration Atorvastatin Calcium 10 mg 03/22/19 22:00 Lipitor - PO HS [facility] Heparin Sodium (Porcine) 5,000 unit 03/22/19 06:00 03/22/19 14:20 Heparin - SQ 5,000 unit TID KORIN Administration Sodium Chloride 1,000 mls @ 75 mls/hr 03/21/19 21:30 03/22/19 09:03 Normal Saline - IV 75 mls/hr ASDIR KORIN Administration Insulin Aspart 1 vial 03/22/19 16:30 Novolog Vial Sliding Scale - SQ TIDAC [facility] Protocol Insulin Aspart 1 vial 03/22/19 22:00 Novolog Vial Sliding Scale - SQ HS [facility] Protocol Insulin Detemir 20 units 03/22/19 10:00 03/22/19 10:43 Levemir Vial SQ 20 units AM KORIN Administration Lisinopril 40 mg 03/22/19 10:00 03/22/19 09:02 Prinivil PO 40 mg DAILY KORIN Administration Metoprolol Succinate 100 mg 03/22/19 10:00 03/22/19 09:02 Toprol Xl - PO 100 mg DAILY KORIN Administration ASSESSMENT/PLAN: Patient is a 53 year old male with past medical history of HTN, HLD, and IDDM, presented to the ED due to generalized weakness that started yesterday afternoon. #Uncontrolled DM -will place patient on sliding scale regimen -BGM ACHS - levemir 20u in AM -hold home Metformin 1000mg bid -IV hydration -will continue to monitor bmp -would need an eye and foot doctor upon discharge -dietitian consult -dr vivas on board #Normocytic anemia -likely anemia of chronic disease -will order stool occult, iron studies, retic ct -transfuse if Hgb<7 #HTN -Continue home meds Metoprolol 100mg daily, Lisinopril 40mg daily, Amlodipine 5mg daily #HLD -Continue Simvastatin -will order lipid profile #FEN -Iv NS @75cc/hr -Electrolytes wnl, routine bmp monitoring -Diabetic, sodium restricted diet #Prophylaxis -Lovenox 40mg sq daily Problem List - Problems (1) Hyperglycemia Code(s): R73.9 - HYPERGLYCEMIA, UNSPECIFIED (2) Diabetes Code(s): E11.9 - TYPE 2 DIABETES MELLITUS WITHOUT COMPLICATIONS (3) HTN (hypertension) Code(s): I10 - ESSENTIAL (PRIMARY) HYPERTENSION Qualifiers: Hypertension type: essential hypertension Qualified Code(s): I10 - Essential (primary) hypertension Visit type - Emergency Visit Emergency Visit: Yes ED Registration Date: 03/21/19 Care time: The patient presented to the Emergency Department on the above date and was hospitalized for further evaluation of their emergent condition. - New Patient This patient is new to me today: Yes Date on this admission: 03/22/19 - Critical Care Critical Care patient: No ATTENDING PHYSICIAN STATEMENT I saw and evaluated the patient. I reviewed the resident's note and discussed the case with the resident. I agree with the resident's findings and plan as documented. SUBJECTIVE: OBJECTIVE: ASSESSMENT AND PLAN:
[2019-03-22] MEDS: ATORVASTATIN CA 10 MG TABLET (FP) PO SCH (21:15)
[2019-03-23] MEDS: HEPARIN NA (PORCINE) 5,000 UNITS/ML 1ML VIAL SQ SCH ×2 (05:55→15:21)
[2019-03-23] MEDS: INSULIN (LEVEMIR) 100 UNITS/ML UNITS SQ SCH (06:05)
[2019-03-23] MEDS: INSULIN SLIDING SCALE (NOVOLOG) 1 VIAL SQ SCH ×4 (06:06→22:24)
[2019-03-23 08:17] LABS: HEMATOCRIT 20.1 % (35.4-49); MCH 29.9 pg (25.7-33.7); MCHC 33.4 g/dl (32.0-35.9); MEAN CELL VOLUME 89.4 fl (80-96); MEAN PLT VOLUME 8.3 fl (7.5-11.1); PLATELET COUNT 110 K/MM3 (134-434); RBC 2.25 M/mm3 (4.00-5.60); RDW 14.7 % (11.9-15.9); WHITE BLOOD COUNT 3.9 K/mm3 (4.0-10.0)
[2019-03-23 08:21] LABS: HEMOGLOBIN 6.7 GM/dL (11.7-16.9)
[2019-03-23 09:09] LABS: BLOOD UREA NITROGEN 26.7 mg/dL (7-18); CALCIUM 8.1 mg/dL (8.5-10.1); CREATININE 0.6 mg/dL (0.55-1.3); MAGNESIUM 1.8 mg/dL (1.8-2.4); POTASSIUM 3.8 mmol/L (3.5-5.1)
--- NOTE | 2019-03-23 10:39 | PN ---
Progress Note (short form) - Note Progress Note: Patient feels weak, lying in bed, stated that yesterday had some tarry stool. Vital Signs Temperature 98.5 F 03/23/19 07:04 Pulse Rate 74 03/23/19 07:04 Respiratory Rate 20 03/23/19 07:04 Blood Pressure 93/52 L 03/23/19 07:04 O2 Sat by Pulse Oximetry (%) 98 03/22/19 21:00 GENERAL: The patient is awake, alert, and fully oriented, in no acute distress. HEAD: Normal with no signs of trauma. EYES: PERRL, extraocular movements intact, sclera anicteric, conjunctiva clear. ENT: Ears normal, oropharynx clear without exudates, moist mucous membranes. NECK: Trachea midline, full range of motion, supple. LUNGS: Breath sounds equal, clear to auscultation bilaterally, no wheezes, no crackles, no accessory muscle use. HEART: Regular rate and rhythm, S1, S2 without murmur, rub or gallop. ABDOMEN: Soft, nontender, nondistended, normoactive bowel sounds, no guarding, no rebound, positive for hepatomegaly, no masses. EXTREMITIES: 2+ pulses, warm, well-perfused, no edema. NEUROLOGICAL: Cranial nerves II through XII grossly intact. Normal speech, gait is stable PSYCH: Normal mood, normal affect. SKIN: Warm, dry, normal turgor, no rashes or lesions noted Rectal exam: as per resident :stool in vault, good sphincter tone, no external hemorrhoids visualized, no internal hemorrhoids felt, no active bleeding, black stool on tip of glove. CBCD WBC 3.9 K/mm3 (4.0-10.0) L 03/23/19 07:35 RBC 2.25 M/mm3 (4.00-5.60) L 03/23/19 07:35 Hgb 6.7 GM/dL (11.7-16.9) L* 03/23/19 07:35 Hct 20.1 % (35.4-49) L 03/23/19 07:35 MCV 89.4 fl (80-96) 03/23/19 07:35 MCHC 33.4 g/dl (32.0-35.9) 03/23/19 07:35 RDW 14.7 % (11.9-15.9) 03/23/19 07:35 Plt Count 110 K/MM3 (134-434) L 03/23/19 07:35 MPV 8.3 fl (7.5-11.1) 03/23/19 07:35 CMP Sodium 139 mmol/L (136-145) 03/23/19 07:35 Potassium 3.8 mmol/L (3.5-5.1) 03/23/19 07:35 Chloride 108 mmol/L (98-107) H 03/23/19 07:35 Carbon Dioxide 22 mmol/L (21-32) 03/23/19 07:35 Anion Gap 9 MMOL/L (8-16) 03/23/19 07:35 BUN 26.7 mg/dL (7-18) H 03/23/19 07:35 Creatinine 0.6 mg/dL (0.55-1.3) 03/23/19 07:35 Random Glucose 286 mg/dL (74-106) H 03/23/19 07:35 Calcium 8.1 mg/dL (8.5-10.1) L 03/23/19 07:35 Total Bilirubin 0.4 mg/dL (0.2-1) 03/21/19 15:10 AST 27 U/L (15-37) 03/21/19 15:10 ALT 28 U/L (13-61) 03/21/19 15:10 Alkaline Phosphatase 134 U/L (45-117) H 03/21/19 15:10 Total Protein 6.6 g/dl (6.4-8.2) 03/21/19 15:10 Albumin 3.1 g/dl (3.4-5.0) L 03/21/19 15:10 CARDIAC ENZYMES Creatine Kinase 75 U/L (26-308) 03/21/19 15:10 Troponin I < 0.02 ng/ml (0.00-0.05) 03/21/19 15:10 Current Medications Generic Name Dose Route Start Last Admin Trade Name Freq PRN Reason Stop Dose Admin Acetaminophen 650 mg 03/21/19 21:26 03/21/19 21:49 Tylenol - PO 650 mg Q6H PRN Administration Fever Or Pain Amlodipine Besylate 5 mg 03/22/19 10:00 03/22/19 09:02 Norvasc - PO 5 mg DAILY KORIN Administration Atorvastatin Calcium 10 mg 03/22/19 22:00 03/22/19 21:15 Lipitor - PO 10 mg HS KORIN Administration Heparin Sodium (Porcine) 5,000 unit 03/22/19 06:00 03/23/19 05:55 Heparin - SQ 5,000 unit TID KORIN Administration Sodium Chloride 1,000 mls @ 75 mls/hr 03/21/19 21:30 03/22/19 09:03 Normal Saline - IV 75 mls/hr ASDIR KORIN Administration Insulin Aspart 1 vial 03/22/19 16:30 03/23/19 06:06 Novolog Vial Sliding Scale - SQ Not Given TIDAC KORIN Protocol Insulin Aspart 1 vial 03/22/19 22:00 03/22/19 21:15 Novolog Vial Sliding Scale - SQ 8 unit HS KORIN Administration Protocol Insulin Detemir 20 units 03/22/19 10:00 03/23/19 06:05 Levemir Vial SQ 20 units AM KORIN Administration Lisinopril 40 mg 03/22/19 10:00 03/22/19 09:02 Prinivil PO 40 mg DAILY KORIN Administration Metoprolol Succinate 100 mg 03/22/19 10:00 03/22/19 09:02 Toprol Xl - PO 100 mg DAILY KORIN Administration Home Medications Medication Instructions Recorded Amlodipine Besylate [Norvasc -] 5 mg PO DAILY 09/22/15 Lisinopril [Prinivil -] 40 mg PO DAILY 09/22/15 Simvastatin [Zocor -] 20 mg PO HS 09/22/15 metFORMIN HCL [Metformin HCl ER] 1,000 mg PO BID #60 tab.er.24 01/11/17 Insulin (Levemir) [Levemir Vial] 20 unit SQ HS 03/21/19 Metoprolol Succinate [Toprol Xl -] 100 mg PO DAILY 03/21/19 Atorvastatin Ca [Lipitor] 20 mg PO HS 03/22/19 Assessment and plan: Patient is a 53 year old male with PMhx of HTN, HLD, and IDDM, presented to the ED due to generalized weakness feeling dizzy and weak, past hgb 1ac is more than 11 # UGIB with acute blood loss: hemoglobin dropped today and rectal exam positive for dark stool, will repeat cbc, will place him on protonix, discussed with , possible EGD in am. NPO after midnight, type and screen for 2 units and transfuse if needed. Type and cross for 2 units, PT/INR , Abdominal US ordered, on protonix drip at 80mg 8mg/hr #DM on SS with coverage will add levemir, will consult dr Ruiz , continue to hold metformin , will continue with levemir in am 20u ,and 5 units hs ,continue IV hydration would need an eye and foot doctor upon discharge #HTN: continue home meds Metoprolol 100mg daily, Lisinopril 40mg daily, Amlodipine 5mg daily #Anemia with a baseline (9-10), today is 6.7 , stool occult, iron studies, retic ct ordered #HLD continue with lipitor , follow lipid profile DVT Prophylaxis: Lovenox 40mg sq daily full code going for EGD in am . type and screen for 2 units Visit type - Emergency Visit Emergency Visit: Yes ED Registration Date: 03/21/19 Care time: The patient presented to the Emergency Department on the above date and was hospitalized for further evaluation of their emergent condition. - New Patient This patient is new to me today: No - Critical Care Critical Care patient: No - Discharge Referral Referred to [facility] No
[2019-03-23] MEDS ORDERED: INSULIN (NOVOLOG) ASPART 100 UNITS/ML 10ML VIAL ONE (11:03)
[2019-03-23] MEDS: LISINOPRIL 20 MG TABLET (FP) PO SCH (11:09)
[2019-03-23] MEDS: amLODIPine BESYLATE 5 MG TABLET (FP) PO SCH (11:09)
--- NOTE | 2019-03-23 13:26 | CON.GI ---
Consult Consult Specialty:: GI: Dr. Swain covering for Dr. Parada who resumes care Referred by:: Hospitalist Service Reason for Consultation:: Anemia / Melena - History of Present Illness Chief Complaint: Dizziness / fatigue History of Present Illness: Swedish interpretation provided by his nurse Rani. 53 year old male admitted 03/21 for evaluation of fatigue/lightheadedness. Noted to be hyperglycemic. Has a history of anemia which worsened during the course of this admission. He describes black bowel movements that started this past monday. The bowel movements were described as softer than usual as well. BUN was noted elevated with normal creatinine. He takes an ASA 81mg once daily. 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 He states having drank upwards of 12 beers per day for 20+ years. He quit 2 years ago. He states that he has a history of anemia and has been evaluated by both a dog daycare provider and Dr. Parada. He describes Dr. Parada performing both EGD and Colonoscopy 2-3 years ago that were OK. He was started on iron, which he has been taking for a while now. His anemia in 2017 was macrocytic. He denies associated nausea / vomiting, hematemesis, gross rectal bleeding, unintentional weight loss. There is no family history of anemia / colorectal cancer or other GI malignancy. He had a Dark BM today. - History Source History Provided By: Patient Limitations to Obtaining History: No Limitations - Past Medical History Cardio/Vascular: Yes: HTN, Hyperlipdemia, Other (Arrhythmia) Gastrointestinal: Yes: Other (Umbilical hernia) Heme/Onc: Yes: Anemia Endocrine: Yes: Diabetes Mellitus - Past Surgical History Additional Surgical History: PPM/AICD - Alcohol/Substance Use Hx Alcohol Use: Yes (former: 12 beers per day x 20+ years. Quit 2017) History of Substance Use: reports: None - Smoking History Smoking history: Never smoked Have you smoked in the past 12 months: No Aproximately how many cigarettes per day: 0 - Social History Usual Living Arrangement: With Spouse ADL: Independent Occupation: Works as cook Place of : Other ([place]) History of Recent Travel: No Home Medications - Allergies Allergies/Adverse Reactions: Allergies Allergy/AdvReac Type Severity Reaction Status Date / Time No Known Allergies Allergy Verified 03/21/19 13:17 - Home Medications Home Medications: Ambulatory Orders Amlodipine Besylate [Norvasc -] 5 mg PO DAILY 09/22/15 Lisinopril [Prinivil -] 40 mg PO DAILY 09/22/15 Simvastatin [Zocor -] 20 mg PO HS 09/22/15 metFORMIN HCL [Metformin HCl ER] 1,000 mg PO BID #60 tab.er.24 01/11/17 Insulin (Levemir) [Levemir Vial] 20 unit SQ HS 03/21/19 Metoprolol Succinate [Toprol Xl -] 100 mg PO DAILY 03/21/19 Atorvastatin Ca [Lipitor] 20 mg PO HS 03/22/19 Family Disease History - Family Disease History Family Disease History: Other: Father (Alive: DM II), Mother (: [place]), Brother (3, healthy), Sister (2, healthy), Son (2, healthy) Other Family History: Maternal Uncle with lung cancer. No family history of colorectal cancer or other GI malignancy Review of Systems - Review of Systems Constitutional: reports: Weakness. denies: Chills, Unintentional Wgt. Loss Cardiovascular: denies: Chest Pain Respiratory: denies: SOB Gastrointestinal: reports: Melena. denies: Abdominal Pain, Diarrhea, Nausea, Rectal Bleeding, Vomiting Physical Exam-GI Vital Signs: Vital Signs Temperature 99.0 F 03/23/19 11:09 Pulse Rate 94 H 03/23/19 11:09 Respiratory Rate 18 03/23/19 11:09 Blood Pressure 106/51 L 03/23/19 11:09 O2 Sat by Pulse Oximetry (%) 98 03/22/19 21:00 Constitutional: Yes: Calm Eyes: No: Sclera Icterus Cardiovascular: Yes: Regular Rate and Rhythm. No: Murmur Respiratory: Yes: CTA Bilaterally Gastrointestinal Inspection: Yes: Hernia (reducible non tender umbilical hernia) ...Auscultate: Yes: Normoactive Bowel Sounds ...Palpate: Yes: Soft. No: Hepatomegaly, Splenomegaly, Tenderness ...Percussion: No: Tympanitic ...Rectal Exam: Yes: Other (No external lesions, no masses, + Melena (guaiac +) 2+ prostate) Edema: No (No LE edema) Neurological: Yes: Alert Labs: CBC, BMP 03/23/19 07:35 03/23/19 07:35 Hepatic Panel Total Bilirubin 0.4 mg/dL (0.2-1) 03/21/19 15:10 AST 27 U/L (15-37) 03/21/19 15:10 ALT 28 U/L (13-61) 03/21/19 15:10 Alkaline Phosphatase 134 U/L (45-117) H 03/21/19 15:10 Albumin 3.1 g/dl (3.4-5.0) L 03/21/19 15:10 Problem List - Problems (1) Melena Assessment/Plan: Elevated BUN out of proportion to the creatinine along with gross melena on exam , worsening anemia and patient's recent onset of dark bowel movements suggests UGIB. Likely a precipitant his hyperglycemia. Discussed the above with patient. Explained that for further evaluation, upper endoscopy can be undertaken to evaluate for sources such as bleeding blood vessels, PUD, gastritis, mass lesions of the upper intestinal tract. I also explained that given his history of alcohol consumption, sources from portal hypertension would need to be excluded as well such as esophageal/gastric varices / portal hypertension. We discussed potential risks of the procedure ( with possible banding of varices) like buit not limited to bleeding, perforation requiring surgery to repair, infection, sedation medication effects all of which coule be potentially life threatening. He has agreed to the procedure: For now: NPO IV Hydration Type and cross ordered I asked his nurse to place another large bore IV PT/INR ordered Abdominal US to assess for structural changes associated with portal hypertension Ordered protonix 80mg bolus followed by 8mg/hr If worsening melena, worsening hemodynamics, frankl rectal bleeding, transfer to ICU and initiate Octreotide infusion Will follow with you Timing of procedure will be dictated by clinical course Dr. Parada resumes coverage 03/25 Code(s): K92.1 - MELENA
[2019-03-23] MEDS ORDERED: PANTOPRAZOLE SODIUM 40 MG VIAL IVPUSH ONE (14:00)
[2019-03-23 15:40] LABS: INR 0.97 (0.83-1.09); PROTHROMBIN TIME (PATIENT) 11.5 SEC (9.7-13.0)
[2019-03-23] MEDS: PANTOPRAZOLE SODIUM 80 MG in SODIUM CHLORIDE 100 ML IVPB SCH (17:53)
[2019-03-23] MEDS ORDERED: FUROSEMIDE 40 MG/4 ML INJECTABLE VIAL IVPUSH ONE (20:26)
[2019-03-23] MEDS: ATORVASTATIN CA 10 MG TABLET (FP) PO SCH (22:23)
[2019-03-24] MEDS ORDERED: FUROSEMIDE 40 MG/4 ML INJECTABLE VIAL ONE (01:55)
[2019-03-24 03:19] LABS: HEMATOCRIT 23.8 % (35.4-49); HEMOGLOBIN 7.7 GM/dL (11.7-16.9); MCH 28.6 pg (25.7-33.7); MCHC 32.4 g/dl (32.0-35.9); MEAN CELL VOLUME 88.3 fl (80-96); MEAN PLT VOLUME 8.4 fl (7.5-11.1); PLATELET COUNT 119 K/MM3 (134-434); RBC 2.69 M/mm3 (4.00-5.60); RDW 16.1 % (11.9-15.9); WHITE BLOOD COUNT 4.6 K/mm3 (4.0-10.0)
[2019-03-24] MEDS ORDERED: PT OWN MED DRAWER 7, Y5N ONE ×2 (06:57→13:17)
[2019-03-24] MEDS: INSULIN (LEVEMIR) 100 UNITS/ML UNITS SQ SCH (07:10)
[2019-03-24] MEDS: INSULIN SLIDING SCALE (NOVOLOG) 1 VIAL SQ SCH ×2 (07:10→15:49)
[2019-03-24] MEDS: SODIUM CHLORIDE 1,000 ML IV SCH ×4 (07:11→12:20)
[2019-03-24] MEDS: PANTOPRAZOLE SODIUM 80 MG in SODIUM CHLORIDE 100 ML IVPB SCH ×2 (08:36→14:08)
[2019-03-24] MEDS ORDERED: PROPOFOL 20 ML ONE ×2 (08:37)
[2019-03-24] MEDS ORDERED: LIDOCAINE HCL/PF 2% SDV 5ML VIAL ONE (08:37)
[2019-03-24] MEDS: amLODIPine BESYLATE 5 MG TABLET (FP) PO SCH (09:13)
[2019-03-24] MEDS: LISINOPRIL 20 MG TABLET (FP) PO SCH (09:13)
[2019-03-24] MEDS ORDERED: CEFAZOLIN 1 GM/D5W 1 GM/50 ML BAG ONE (09:57)
[2019-03-24] MEDS ORDERED: ceFAZolin SODIUM 1 GM VIAL IVPB ONE (10:02)
[2019-03-24 10:03] LABS: BASO % 0.6 % (0-2.0); HEMATOCRIT 23.1 % (35.4-49); HEMOGLOBIN 7.6 GM/dL (11.7-16.9); LYMPH % 39.5 % (8-40); MCH 29.1 pg (25.7-33.7); MCHC 33.1 g/dl (32.0-35.9); MEAN PLT VOLUME 8.3 fl (7.5-11.1); MONO % 8.9 % (3.8-10.2); PLATELET COUNT 124 K/MM3 (134-434); RBC 2.62 M/mm3 (4.00-5.60); RDW 16.6 % (11.9-15.9); WHITE BLOOD COUNT 4.7 K/mm3 (4.0-10.0)
[2019-03-24] MEDS ORDERED: MIDAZOLAM HCL 2 MG/2 ML SINGLE DOSE VIAL ONE ×2 (10:14)
--- NOTE | 2019-03-24 10:43 | PN ---
Progress Note (short form) - Note Progress Note: EGD complete. report left in procedural section of physical chart and will be scanned into [employer]. Discussed findings and plan with Problem List - Problems (1) Lena Code(s): K92.1 Neymar JARRETT
[2019-03-24 10:55] LABS: ALBUMIN 2.5 g/dl (3.4-5.0); BILIRUBIN,TOTAL 0.5 mg/dL (0.2-1); BLOOD UREA NITROGEN 13.4 mg/dL (7-18); CALCIUM 8.1 mg/dL (8.5-10.1); CREATININE 0.6 mg/dL (0.55-1.3); POTASSIUM 4.1 mmol/L (3.5-5.1); TOT PROT 5.3 g/dl (6.4-8.2)
[2019-03-24] MEDS ORDERED: OCTREOTIDE ACETATE 50 MCG/1 ML - 1 ML VIAL IVPUSH ONE ×2 (11:00→11:30)
--- NOTE | 2019-03-24 11:42 | CONSULT ---
Consultation: REQUESTING PROVIDER: Dr Swain CONSULT REQUEST: We have been asked to medically evaluate this patient for ( Bleeding Esophageal varices). HISTORY OF PRESENT ILLNESS: Pt is a 53 y/o m with a significant past medical history of HTN, IDDM, and HLD who presented to [facility] due to generalized weakness. Pt was ultimately found to have blood glucose measurements in the 500s. Pt was initially treated with SQ insulin and IV Fluids. Later during admission, pt noticed dark appearing stool in the toilet bowl and notified hospital staff. Fecal occult blood testing was positive. Hg on admission was 9.7 however went down to 6.7 on the 2nd day of admission. Gastroenterology was subsequently consulted. Pt ultimately underwent an EGD which revealed Esophageal varices. Upon questioning patient, pt endorses that he actually began to have melena on Monday. Pt states his last colonoscopy was about 3 years ago and did not reportedly reveal any abnormalities. Denies epigastric pain, nausea/ vomiting, lightheadedness, chest pain, or shortness of breath. REVIEW OF SYSTEMS: CONSTITUTIONAL: Absent: fever, chills, diaphoresis, generalized weakness, malaise, loss of appetite, weight change HEENT: Absent: rhinorrhea, nasal congestion, throat pain, throat swelling, difficulty swallowing, mouth swelling, ear pain, eye pain, visual changes CARDIOVASCULAR: Absent: chest pain, syncope, palpitations, irregular heart rate, lightheadedness , peripheral edema RESPIRATORY: Absent: cough, shortness of breath, dyspnea with exertion, orthopnea, wheezing, stridor, hemoptysis GASTROINTESTINAL: PRESENT: melena GENITOURINARY: Absent: dysuria, frequency, urgency, hesitancy, hematuria, flank pain, genital pain MUSCULOSKELETAL: Absent: myalgia, arthralgia, joint swelling, back pain, neck pain SKIN: Absent: rash, itching, pallor HEMATOLOGIC/IMMUNOLOGIC: Absent: easy bleeding, easy bruising, lymphadenopathy, frequent infections ENDOCRINE: Absent: unexplained weight gain, unexplained weight loss, heat intolerance, cold intolerance NEUROLOGIC: Absent: headache, focal weakness or paresthesias, dizziness, unsteady gait, seizure, mental status changes, bladder or bowel incontinence PSYCHIATRIC: Absent: anxiety, depression, suicidal or homicidal ideation, hallucinations. PHYSICAL EXAMINATION Vital Signs - 24 hr 03/23/19 03/23/19 03/23/19 17:00 21:00 23:00 Temperature 98.5 F 98.6 F Pulse Rate 84 89 Respiratory 18 16 Rate Blood Pressure 103/58 L 106/55 L O2 Sat by Pulse 97 Oximetry (%) 03/24/19 03/24/19 03/24/19 05:00 08:52 09:01 Temperature 98.2 F 98.5 F Pulse Rate 84 88 Respiratory 20 20 20 Rate Blood Pressure 99/54 L 100/57 L O2 Sat by Pulse 95 Oximetry (%) 03/24/19 03/24/19 03/24/19 10:31 10:45 11:00 Temperature 99.4 F Pulse Rate 97 H 101 H 91 H Respiratory 16 16 16 Rate Blood Pressure 93/45 L 94/49 L 101/57 L O2 Sat by Pulse 94 L 97 99 Oximetry (%) GENERAL: AAOx3 NAD HEAD: Atraumatic/Normocephalic EYES: No conjunctival pallor, EOMI, Sclera Clear EARS, NOSE, THROAT: MMM NECK: Supple LUNGS: CTAB HEART: RRR +S1S2 ABDOMEN: No Guarding rigidity. No epigastric tenderness. Hypoactive bowel sounds LOWER EXTREMITIES: No CCE. NEUROLOGICAL: Cranial nerves II-XII intact. Normal speech. Normal gait. PSYCHIATRIC: Cooperative. Good eye contact. Appropriate mood and affect. SKIN: Warm, dry, normal turgor, no rashes or lesions noted. Laboratory Results - last 24 hr 03/23/19 03/23/19 03/23/19 07:35 14:55 14:55 WBC RBC Hgb Hct MCV MCH MCHC RDW Plt Count MPV Absolute Neuts (auto) Neutrophils % Lymphocytes % Monocytes % Eosinophils % Basophils % Nucleated RBC % PT with INR 11.50 INR 0.97 Sodium 139 Potassium 3.8 Chloride 108 H Carbon Dioxide 22 Anion Gap 9 BUN 26.7 H Creatinine 0.6 Est GFR (CKD-EPI)AfAm 134.92 Est GFR (CKD-EPI)NonAf 116.41 POC Glucometer Random Glucose 286 H Calcium 8.1 L Magnesium 1.8 Total Bilirubin AST ALT Alkaline Phosphatase Total Protein Albumin Free T4 Cancelled Blood Type O POSITIVE Antibody Screen Negative Crossmatch See Detail 03/23/19 03/23/19 03/24/19 17:24 22:22 03:00 WBC 4.6 RBC 2.69 L Hgb 7.7 L Hct 23.8 L D MCV 88.3 MCH 28.6 MCHC 32.4 RDW 16.1 H Plt Count 119 L MPV 8.4 Absolute Neuts (auto) Neutrophils % Lymphocytes % Monocytes % Eosinophils % Basophils % Nucleated RBC % PT with INR INR Sodium Potassium Chloride Carbon Dioxide Anion Gap BUN Creatinine Est GFR (CKD-EPI)AfAm Est GFR (CKD-EPI)NonAf POC Glucometer 213 212 Random Glucose Calcium Magnesium Total Bilirubin AST ALT Alkaline Phosphatase Total Protein Albumin Free T4 Blood Type Antibody Screen Crossmatch 03/24/19 03/24/19 03/24/19 07:07 09:16 09:16 WBC 4.7 RBC 2.62 L Hgb 7.6 L Hct 23.1 L MCV 88.0 MCH 29.1 MCHC 33.1 RDW 16.6 H Plt Count 124 L MPV 8.3 Absolute Neuts (auto) 2.1 Neutrophils % 45.0 D Lymphocytes % 39.5 D Monocytes % 8.9 Eosinophils % 6.0 H Basophils % 0.6 Nucleated RBC % 0 PT with INR INR Sodium 138 Potassium 4.1 Chloride 106 Carbon Dioxide 26 Anion Gap 6 L BUN 13.4 Creatinine 0.6 Est GFR (CKD-EPI)AfAm 134.92 Est GFR (CKD-EPI)NonAf 116.41 POC Glucometer 220 Random Glucose 223 H Calcium 8.1 L Magnesium Total Bilirubin 0.5 AST 44 H ALT 25 Alkaline Phosphatase 91 Total Protein 5.3 L Albumin 2.5 L Free T4 Blood Type Antibody Screen Crossmatch Active Medications Generic Name Dose Route Start Last Admin Trade Name Freq PRN Reason Stop Dose Admin Acetaminophen 650 mg 03/21/19 21:26 03/21/19 21:49 Tylenol - PO 650 mg Q6H PRN Administration Fever Or Pain Amlodipine Besylate 5 mg 03/22/19 10:00 03/24/19 09:13 Norvasc - PO Not Given DAILY KORIN Atorvastatin Calcium 10 mg 03/22/19 22:00 03/23/19 22:23 Lipitor - PO 10 mg HS KORIN Administration Sodium Chloride 1,000 mls @ 75 mls/hr 03/21/19 21:30 03/24/19 08:37 Normal Saline - IV 75 mls/hr ASDIR KORIN Administration Pantoprazole Sodium 80 mg/ 100 mls @ 10 mls/hr 03/23/19 16:00 03/24/19 08:36 Sodium Chloride IVPB 10 mls/hr Q10H KORIN Administration 8 MG/HR Octreotide Acetate 200 mcg/ 500 mls @ 20.833 mls/hr 03/24/19 12:00 Octreotide Acetate 1,000 mcg/ IVPB Dextrose ASDIR KORIN Levofloxacin 500 mg in 100 mls @ 100 mls/hr 03/24/19 11:00 Levaquin 500 Mg Premixed Ivpb - IVPB DAILY [facility] Protocol Insulin Aspart 1 vial 03/22/19 16:30 03/24/19 07:10 Novolog Vial Sliding Scale - SQ Not Given TIDAC [facility] Protocol Insulin Aspart 1 vial 03/22/19 22:00 03/23/19 22:24 Novolog Vial Sliding Scale - SQ Not Given HS [facility] Protocol Insulin Detemir 20 units 03/22/19 10:00 03/24/19 07:10 Levemir Vial SQ Not Given AM KORIN Lisinopril 40 mg 03/22/19 10:00 03/24/19 09:13 Prinivil PO Not Given DAILY KORIN Metoprolol Succinate 100 mg 03/22/19 10:00 03/24/19 09:13 Toprol Xl - PO Not Given DAILY KORIN ASSESSMENT/PLAN: Pt is a 53 y/o m with a significant past medical history of HTN, IDDM, and HLD who presented to [facility] due to generalized weakness. Found to have bleeding Esophageal varices. #G.I: Upper GI Bleed 2/2 Esophageal Varices - H/H on admission 9.7/28.9. Hemoglobin this afternoon 6.0. Will transfuse 1 U PRBC. Pt has already received 2 U PRBC -S/p EGD. EGD revealed, " Large esophageal varices spanning 25 to 38 cm. One of the mid esophageal varices had a small ulceration. Attempt at banding led to banding slippage x 2 with ensuing active variceal bleeding." No gastric Varices appreciated. -On Octreotide gtt. -Metoprolol 100 mg Daily -Levaquin abx ppx for SBP -Pantoprazole gtt -Will transfer pt to [facility] #ENDO- IDDM -ISS -Levemir 20 U SQ AM #FEN NS@75cc/hr Monitor Electrolytes NPO #ppx: Pantoprazole gtt Dispo: We will continue to follow the patient. Thank you for this consultative opportunity. Visit type - Emergency Visit Emergency Visit: Yes ED Registration Date: 03/21/19 Care time: The patient presented to the Emergency Department on the above date and was hospitalized for further evaluation of their emergent condition. - New Patient This patient is new to me today: Yes Date on this admission: 03/24/19 - Critical Care Critical Care patient: Yes Total Critical Care Time (in minutes): 35 Critical Care Statement: The care of this patient involved high complexity decision making to prevent further life threatening deterioration of the patient 's condition and/or to evaluate & treat vital organ system(s) failure or risk of failure. ATTENDING PHYSICIAN STATEMENT I saw and evaluated the patient. I reviewed the resident's note and discussed the case with the resident. I agree with the resident's findings and plan as documented. SUBJECTIVE: OBJECTIVE: ASSESSMENT AND PLAN:
[2019-03-24] MEDS ORDERED: OCTREOTIDE ACETATE 200 MCG, OCTREOTIDE ACETATE 1,000 MCG in DEXTROSE 5%-WATER - 496 ML IVPB SCH (12:00)
[2019-03-24] MEDS ORDERED: INSULIN (NOVOLOG) ASPART 100 UNITS/ML 10ML VIAL ONE ×2 (13:17→14:01)
[2019-03-24 13:48] LABS: MCH 29.7 pg (25.7-33.7); MCHC 29.9 g/dl (32.0-35.9); MEAN CELL VOLUME 99.3 fl (80-96); MEAN PLT VOLUME 7.8 fl (7.5-11.1); PLATELET COUNT 79 K/MM3 (134-434); RBC 2.02 M/mm3 (4.00-5.60); RDW 17.6 % (11.9-15.9); WHITE BLOOD COUNT 2.8 K/mm3 (4.0-10.0)
--- NOTE | 2019-03-24 14:27 | PN ---
Progress Note (short form) - Note Progress Note: Discussed findings of EGD with Mr. Gera Vargas. Discussed reason for transfer to [facility] and complications that can be associated with cirrhosis. 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 Hgb 6 noted post transfusion and post EGD. Spoke with his nurse. vitals are stable. 1 U PRBC ready and I advised that she transfuse. Ideally, should have his beta familia transitioned to non-selective. Coreg could be used starting at 3.125mg BID, max dose 6.25mg PO BID, hold for SBP <90 HR<55. Awaiting transfer to [facility]. Problem List - Problems (1) Melena Code(s): K92.1 - LUIZA
[2019-03-24 17:01] VITALS: BP 119/73; PULSE 87; TEMP 98.7
--- NOTE | 2019-03-24 19:26 | PN ---
Physical Exam: SUBJECTIVE: Patient seen and examined at the bedside, no acute events. Patient having EGD today. OBJECTIVE: Vital Signs Period Temp Pulse Resp BP Sys/Dukes Pulse Ox Last 24 Hr 98 F-99.4 F 81-101 14-20 93-119/45-74 94-100 GENERAL: The patient is awake, alert, and fully oriented, in no acute distress. HEAD: Normal with no signs of trauma. EYES: PERRL, extraocular movements intact, sclera anicteric, conjunctiva clear. ENT: Ears normal, oropharynx clear without exudates, moist mucous membranes. NECK: Trachea midline, full range of motion, supple. LUNGS: Breath sounds equal, clear to auscultation bilaterally, no wheezes, no crackles, no accessory muscle use. HEART: Regular rate and rhythm, S1, S2 without murmur, rub or gallop. ABDOMEN: Soft, nontender, nondistended, normoactive bowel sounds, no guarding, no rebound, positive for hepatomegaly, no masses. EXTREMITIES: 2+ pulses, warm, well-perfused, no edema. NEUROLOGICAL: Cranial nerves II through XII grossly intact. Normal speech, gait not observed PSYCH: Normal mood, normal affect. SKIN: Warm, dry, normal turgor, no rashes or lesions noted Laboratory Results - last 24 hr 03/23/19 03/23/19 03/24/19 14:55 22:22 03:00 WBC 4.6 RBC 2.69 L Hgb 7.7 L Hct 23.8 L D MCV 88.3 MCH 28.6 MCHC 32.4 RDW 16.1 H Plt Count 119 L MPV 8.4 Absolute Neuts (auto) Neutrophils % Lymphocytes % Monocytes % Eosinophils % Basophils % Nucleated RBC % Sodium Potassium Chloride Carbon Dioxide Anion Gap BUN Creatinine Est GFR (CKD-EPI)AfAm Est GFR (CKD-EPI)NonAf POC Glucometer 212 Random Glucose Calcium Total Bilirubin AST ALT Alkaline Phosphatase Total Protein Albumin Blood Type O POSITIVE Antibody Screen Negative Crossmatch See Detail 03/24/19 03/24/19 03/24/19 07:07 09:16 09:16 WBC 4.7 RBC 2.62 L Hgb 7.6 L Hct 23.1 L MCV 88.0 MCH 29.1 MCHC 33.1 RDW 16.6 H Plt Count 124 L MPV 8.3 Absolute Neuts (auto) 2.1 Neutrophils % 45.0 D Lymphocytes % 39.5 D Monocytes % 8.9 Eosinophils % 6.0 H Basophils % 0.6 Nucleated RBC % 0 Sodium 138 Potassium 4.1 Chloride 106 Carbon Dioxide 26 Anion Gap 6 L BUN 13.4 Creatinine 0.6 Est GFR (CKD-EPI)AfAm 134.92 Est GFR (CKD-EPI)NonAf 116.41 POC Glucometer 220 Random Glucose 223 H Calcium 8.1 L Total Bilirubin 0.5 AST 44 H ALT 25 Alkaline Phosphatase 91 Total Protein 5.3 L Albumin 2.5 L Blood Type Antibody Screen Crossmatch 03/24/19 03/24/19 03/24/19 13:40 15:40 17:26 WBC 2.8 L RBC 2.02 L Hgb 6.0 L* Hct 20.0 L MCV 99.3 H D MCH 29.7 MCHC 29.9 L RDW 17.6 H Plt Count 79 L D MPV 7.8 Absolute Neuts (auto) Neutrophils % Lymphocytes % Monocytes % Eosinophils % Basophils % Nucleated RBC % Sodium Potassium Chloride Carbon Dioxide Anion Gap BUN Creatinine Est GFR (CKD-EPI)AfAm Est GFR (CKD-EPI)NonAf POC Glucometer 210 223 Random Glucose Calcium Total Bilirubin AST ALT Alkaline Phosphatase Total Protein Albumin Blood Type Antibody Screen Crossmatch Active Medications Generic Name Dose Route Start Last Admin Trade Name Freq PRN Reason Stop Dose Admin Acetaminophen 650 mg 03/21/19 21:26 03/21/19 21:49 Tylenol - PO 650 mg Q6H PRN Administration Fever Or Pain Amlodipine Besylate 5 mg 03/22/19 10:00 03/24/19 09:13 Norvasc - PO Not Given DAILY KORIN Atorvastatin Calcium 10 mg 03/22/19 22:00 03/23/19 22:23 Lipitor - PO 10 mg HS KORIN Administration Sodium Chloride 1,000 mls @ 75 mls/hr 03/21/19 21:30 03/24/19 12:20 Normal Saline - IV 75 mls/hr ASDIR KORIN Administration Octreotide Acetate 200 mcg/ 500 mls @ 20.833 mls/hr 03/24/19 12:00 03/24/19 14:07 Octreotide Acetate 1,000 mcg/ IVPB 20.833 mls/hr Dextrose ASDIR KORIN Administration Levofloxacin 500 mg in 100 mls @ 100 mls/hr 03/24/19 11:00 03/24/19 13:00 Levaquin 500 Mg Premixed Ivpb - IVPB 100 mls/hr DAILY [facility]IN Administration Protocol Insulin Aspart 1 vial 03/22/19 16:30 03/24/19 15:49 Novolog Vial Sliding Scale - SQ Not Given TIDAC [facility] Protocol Insulin Aspart 1 vial 03/22/19 22:00 03/23/19 22:24 Novolog Vial Sliding Scale - SQ Not Given HS [facility] Protocol Insulin Detemir 20 units 03/22/19 10:00 03/24/19 07:10 Levemir Vial SQ Not Given AM KORIN Lisinopril 40 mg 03/22/19 10:00 03/24/19 09:13 Prinivil PO Not Given DAILY KORIN Metoprolol Succinate 100 mg 03/22/19 10:00 03/24/19 09:13 Toprol Xl - PO Not Given DAILY KORIN Pantoprazole Sodium 40 mg 03/24/19 22:00 Protonix Iv IVPUSH BID [facility] ASSESSMENT/PLAN: Patient is a 53 year old male with PMhx of HTN, HLD, and IDDM, presented to the ED due to generalized weakness feeling dizzy and weak, past hgb 1ac is more than 11 # UGIB with acute blood loss: - H/H on admission 9.7/28.9 and rectal exam positive for dark stool - S/p EGD and transfer to ICU - EGD revealed, " Large esophageal varices spanning 25 to 38 cm. One of the mid esophageal varices had a small ulceration. Attempt at banding led to banding slippage x 2 with ensuing active variceal bleeding." - No gastric Varices appreciated. - Hemoglobin this afternoon 6.0. Will transfuse 1 U PRBC. Pt has already received 2 U PRBC - On Octreotide gtt. - Metoprolol 100 mg Daily - Levaquin abx ppx for SBP - Pantoprazole gtt - Pending transfer to [facility] - GI (Dr. Swain) following, appreciate recommendations - ICU following, appreciate recommendations #DM - on SS with coverage will add levemir -ISS -Levemir 20 U SQ AM - would need an eye and foot doctor upon discharge #HTN - continue home meds Metoprolol 100mg daily, Lisinopril 40mg daily, Amlodipine 5mg daily #HLD - continue with lipitor , follow lipid profile #FEN NS@75cc/hr Monitor Electrolytes NPO #ppx: Pantoprazole gtt Dispo: Pending transfer to [facility] full code Visit type - Emergency Visit Emergency Visit: Yes ED Registration Date: 03/21/19 Care time: The patient presented to the Emergency Department on the above date and was hospitalized for further evaluation of their emergent condition. - New Patient This patient is new to me today: Yes Date on this admission: 03/24/19 - Critical Care Critical Care patient: Yes Total Critical Care Time (in minutes): 40 Critical Care Statement: The care of this patient involved high complexity decision making to prevent further life threatening deterioration of the patient 's condition and/or to evaluate & treat vital organ system(s) failure or risk of failure. - Discharge Referral Referred to [facility] No ATTENDING PHYSICIAN STATEMENT I saw and evaluated the patient. I reviewed the resident's note and discussed the case with the resident. I agree with the resident's findings and plan as documented. SUBJECTIVE: OBJECTIVE: ASSESSMENT AND PLAN:
--- NOTE | 2019-03-24 21:06 | PN ---
Teaching Attending Note Name of Resident: Annette Funk ATTENDING PHYSICIAN STATEMENT I saw and evaluated the patient. I reviewed the resident's note and discussed the case with the resident. I agree with the resident's findings and plan as documented. SUBJECTIVE: Patient has no new complains s/p EGd today , in ICU OBJECTIVE: Vital Signs Temperature 98.7 F 03/24/19 16:00 Pulse Rate 87 03/24/19 16:00 Respiratory Rate 18 03/24/19 16:00 Blood Pressure 119/73 03/24/19 16:00 O2 Sat by Pulse Oximetry (%) 99 03/24/19 16:54 GENERAL: The patient is awake, alert, and fully oriented, in no acute distress. HEAD: Normal with no signs of trauma. EYES: PERRL, extraocular movements intact, sclera anicteric, conjunctiva clear. ENT: Ears normal, oropharynx clear without exudates, moist mucous membranes. NECK: Trachea midline, full range of motion, supple. LUNGS: Breath sounds equal, clear to auscultation bilaterally, no wheezes, no crackles, no accessory muscle use. HEART: Regular rate and rhythm, S1, S2 without murmur, rub or gallop. ABDOMEN: Soft, nontender, nondistended, normoactive bowel sounds, no guarding, no rebound, positive for hepatomegaly, no masses appreciated . EXTREMITIES: 2+ pulses, warm, well-perfused, no edema. NEUROLOGICAL: Cranial nerves II through XII grossly intact. Normal speech, gait is stable PSYCH: Normal mood, normal affect. SKIN: Warm, dry, normal turgor, no rashes or lesions noted CBCD WBC 2.8 K/mm3 (4.0-10.0) L 03/24/19 13:40 RBC 2.02 M/mm3 (4.00-5.60) L 03/24/19 13:40 Hgb 6.0 GM/dL (11.7-16.9) L* 03/24/19 13:40 Hct 20.0 % (35.4-49) L 03/24/19 13:40 MCV 99.3 fl (80-96) H D 03/24/19 13:40 MCHC 29.9 g/dl (32.0-35.9) L 03/24/19 13:40 RDW 17.6 % (11.9-15.9) H 03/24/19 13:40 Plt Count 79 K/MM3 (134-434) L D 03/24/19 13:40 MPV 7.8 fl (7.5-11.1) 03/24/19 13:40 CMP Sodium 138 mmol/L (136-145) 03/24/19 09:16 Potassium 4.1 mmol/L (3.5-5.1) 03/24/19 09:16 Chloride 106 mmol/L (98-107) 03/24/19 09:16 Carbon Dioxide 26 mmol/L (21-32) 03/24/19 09:16 Anion Gap 6 MMOL/L (8-16) L 03/24/19 09:16 BUN 13.4 mg/dL (7-18) 03/24/19 09:16 Creatinine 0.6 mg/dL (0.55-1.3) 03/24/19 09:16 Random Glucose 223 mg/dL (74-106) H 03/24/19 09:16 Calcium 8.1 mg/dL (8.5-10.1) L 03/24/19 09:16 Total Bilirubin 0.5 mg/dL (0.2-1) 03/24/19 09:16 AST 44 U/L (15-37) H 03/24/19 09:16 ALT 25 U/L (13-61) 03/24/19 09:16 Alkaline Phosphatase 91 U/L (45-117) 03/24/19 09:16 Total Protein 5.3 g/dl (6.4-8.2) L 03/24/19 09:16 Albumin 2.5 g/dl (3.4-5.0) L 03/24/19 09:16 CARDIAC ENZYMES Creatine Kinase 75 U/L (26-308) 03/21/19 15:10 Troponin I < 0.02 ng/ml (0.00-0.05) 03/21/19 15:10 Current Medications Generic Name Dose Route Start Last Admin Trade Name Freq PRN Reason Stop Dose Admin Acetaminophen 650 mg 03/21/19 21:26 03/21/19 21:49 Tylenol - PO 650 mg Q6H PRN Administration Fever Or Pain Amlodipine Besylate 5 mg 03/22/19 10:00 03/24/19 09:13 Norvasc - PO Not Given DAILY [facility] Atorvastatin Calcium 10 mg 03/22/19 22:00 03/23/19 22:23 Lipitor - PO 10 mg HS KORIN Administration Sodium Chloride 1,000 mls @ 75 mls/hr 03/21/19 21:30 03/24/19 12:20 Normal Saline - IV 75 mls/hr ASDIR KORIN Administration Octreotide Acetate 200 mcg/ 500 mls @ 20.833 mls/hr 03/24/19 12:00 03/24/19 14:07 Octreotide Acetate 1,000 mcg/ IVPB 20.833 mls/hr Dextrose ASDIR KORIN Administration Levofloxacin 500 mg in 100 mls @ 100 mls/hr 03/24/19 11:00 03/24/19 13:00 Levaquin 500 Mg Premixed Ivpb - IVPB 100 mls/hr DAILY [facility] Administration Protocol Insulin Aspart 1 vial 03/22/19 16:30 03/24/19 15:49 Novolog Vial Sliding Scale - SQ Not Given TIDAC [facility] Protocol Insulin Aspart 1 vial 03/22/19 22:00 03/23/19 22:24 Novolog Vial Sliding Scale - SQ Not Given HS [facility] Protocol Insulin Detemir 20 units 03/22/19 10:00 03/24/19 07:10 Levemir Vial SQ Not Given AM [facility] Lisinopril 40 mg 03/22/19 10:00 03/24/19 09:13 Prinivil PO Not Given DAILY [facility] Metoprolol Succinate 100 mg 03/22/19 10:00 03/24/19 09:13 Toprol Xl - PO Not Given DAILY [facility] Pantoprazole Sodium 40 mg 03/24/19 22:00 Protonix Iv IVPUSH BID [facility] Home Medications Medication Instructions Recorded Amlodipine Besylate [Norvasc -] 5 mg PO DAILY 09/22/15 Lisinopril [Prinivil -] 40 mg PO DAILY 09/22/15 Simvastatin [Zocor -] 20 mg PO 09/22/15 metFORMIN HCL [Metformin HCl ER] 1,000 mg PO BID #60 tab.er.24 01/11/17 Insulin (Levemir) [Levemir Vial] 20 unit SQ HS 03/21/19 Metoprolol Succinate [Toprol Xl -] 100 mg PO DAILY 03/21/19 Atorvastatin Ca [Lipitor] 20 mg PO 03/22/19 ASSESSMENT AND PLAN: Patient is a 53 year old male with PMhx of HTN, HLD, and IDDM, presented to the ED due to generalized weakness feeling dizzy and weak, past hgb 1ac is more than 11 #UGIB s/p EGD today with findings of bleeding Esophageal Varices: As per GI ; EGD revealed, " Large esophageal varices spanning 25 to 38 cm. One of the mid esophageal varices had a small ulceration. Attempt at banding led to banding slippage x 2 with ensuing active variceal bleeding. monitor H/h, Hgb 6 post transfusion and post EGD. trasfuse now 1 U PRBC hemoglobin dropped to 6 , will continue to transfuse , continue Octreotide gtt. , protonix drip , Px levaquin ; transfus as needed willswitch to coreg in am from Metoprolol XL 100 mg Daily with holding parameters for SBP <90 HR<55. #DM on SS with coverage will add levemir, will consult dr Ruiz , continue to hold metformin , will continue with levemir in am 10u reduced from 20 since patient is NPO , and 5 units hs ,continue IV hydration #HTN: continue with coreg switch from home meds Metoprolol 100mg daily, Lisinopril 40mg daily, Amlodipine 5mg daily #Anemia with a baseline (9-10), is 6 now getting transfused #HLD continue with lipitor , follow lipid profile DVT Prophylaxis: SCds full code Patient is getting transferred to [facility] due to the complications that can be associated with cirrhosis. As per GI to switch to non selective beta familia from selective; will start coreg in am ; starting at 3.125mg BID, max dose 6.25mg PO BID, hold for SBP <90 HR<55. Awaiting transfer to [facility].
[2019-03-24] MEDS ORDERED: PANTOPRAZOLE SODIUM 40 MG VIAL IVPUSH SCH (22:00)
[2019-03-25] MEDS ORDERED: INSULIN (LEVEMIR) 100 UNITS/ML UNITS SQ SCH (07:00)
[2019-03-25] MEDS ORDERED: CARVEDILOL 3.125 MG TABLET (FP) PO SCH ×2 (08:00)
--- NOTE | 2019-03-25 10:17 | EKG ---
Test Reason : Blood Pressure : / mmHG Vent. Rate : 079 BPM Atrial Rate : 079 BPM P-R Int : 158 ms QRS Dur : 100 ms QT Int : 374 ms P-R-T Axes : 134 194 163 degrees QTc Int : 428 ms SUSPECT ARM LEAD REVERSAL, INTERPRETATION ASSUMES NO REVERSAL PROBABLE SINUS RHYTHM LOW VOLTAGE QRS NONSPECIFIC ST AND T WAVE ABNORMALITY ABNORMAL ECG WHEN COMPARED WITH ECG OF 21-MAR-2019 14:31, LEAD REVERSAL Confirmed by JUDY RODRIGUEZ, KAROLINA ([id number]) on 03/25/2019 10:16:55 AM Referred By: Confirmed By:KAROLINA KIM MD
--- NOTE | 2019-03-25 16:28 | DS ---
Physical Exam: SUBJECTIVE: Patient seen and examined, there were no acute events. Patient to be transferred to [facility] for further care. OBJECTIVE: Vital Signs Period Temp Pulse Resp BP Sys/Dukes Pulse Ox Last 24 Hr 99 PHYSICAL EXAM GENERAL: The patient is awake, alert, and fully oriented, in no acute distress. HEAD: Normal with no signs of trauma. EYES: PERRL, extraocular movements intact, sclera anicteric, conjunctiva clear. ENT: Ears normal, oropharynx clear without exudates, moist mucous membranes. NECK: Trachea midline, full range of motion, supple. LUNGS: Breath sounds equal, clear to auscultation bilaterally, no wheezes, no crackles, no accessory muscle use. HEART: Regular rate and rhythm, S1, S2 without murmur, rub or gallop. ABDOMEN: Soft, nontender, nondistended, normoactive bowel sounds, no guarding, no rebound, positive for hepatomegaly, no masses. EXTREMITIES: 2+ pulses, warm, well-perfused, no edema. NEUROLOGICAL: Cranial nerves II through XII grossly intact. Normal speech, gait not observed PSYCH: Normal mood, normal affect. SKIN: Warm, dry, normal turgor, no rashes or lesions noted LABS Laboratory Results - last 24 hr 03/24/19 03/24/19 10:45 17:26 POC Glucometer 220 223 HOSPITAL COURSE: Date of Admission:03/21/19 Patient is a 53 year old male with PMhx of HTN, HLD, and IDDM, who presented to the ED with generalized weakness associate with feeling dizzy. Workup included labs which revealed a low H/H of 9.7/28.9 on admission, and a rectal exam positive for dark stool. Patient also had an EGD which revealed large esophageal varices spanning 25 to 38 cm. One of the mid esophageal varices had a small ulceration. An attempt was made at banding however this led to banding slippage x 2 with ensuing active variceal bleeding. It was decided to transfer him to [facility] for further management of his active variceal bleeding. Date of Discharge: 03/25/19 Minutes to complete discharge: 40 Discharge Summary Reason For Visit: TYPE 2 DIABETES MELLITUS Condition: Stable - Instructions Diet, Activity, Other Instructions: You were in the hospital for suspected GI bleed. You were seen by our GI doctors here who recommended you be transferred to a larger hospital to continue your care. Disposition: TRANSFER ACUTE CARE/OTHER HOSP - Home Medications Comprehensive Discharge Medication List: Ambulatory Orders Amlodipine Besylate [Norvasc -] 5 mg PO DAILY 09/22/15 Lisinopril [Prinivil -] 40 mg PO DAILY 09/22/15 Simvastatin [Zocor -] 20 mg PO HS 09/22/15 metFORMIN HCL [Metformin HCl ER] 1,000 mg PO BID #60 tab.er.24 01/11/17 Insulin (Levemir) [Levemir Vial] 20 unit SQ HS 03/21/19 Metoprolol Succinate [Toprol Xl -] 100 mg PO DAILY 03/21/19 Atorvastatin Ca [Lipitor] 20 mg PO HS 03/22/19 This patient is new to me today: No Emergency Visit: Yes ED Registration Date: 03/21/19 Care time: The patient presented to the Emergency Department on the above date and was hospitalized for further evaluation of their emergent condition. Critical Care patient: Yes Total Critical Care Time (in minutes): 40 Critical Care Statement: The care of this patient involved high complexity decision making to prevent further life threatening deterioration of the patient 's condition and/or to evaluate & treat vital organ system(s) failure or risk of failure. - Discharge Referral Referred to [facility] Med [facility] No ATTENDING PHYSICIAN STATEMENT I saw and evaluated the patient. I reviewed the resident's note and discussed the case with the resident. I agree with the resident's findings and plan as documented. SUBJECTIVE: OBJECTIVE: ASSESSMENT AND PLAN:
--- NOTE | 2019-03-26 17:18 | PATH ---
Surgical Pathology Report Patient Name: BELLA MORALES [facility]. Rec. #: [id number] /Age/Gender: 1965 (Age: 53) / M Account: [id number] Location: ICU MANUFACTURING ENGINEERING TECHNOLOGIST Taken: 03/24/2019 Received: 03/25/2019 Reported: 03/26/2019 Physicians: Gm Swain D.O. Specimen(s) Received BIOPSY GASTRIC ANTRUM Clinical History Upper GI bleeding Final Diagnosis GASTRIC ANTRUM, BIOPSY: GASTRIC MUCOSA WITH CHRONIC GASTRITIS. IMMUNOSTAIN FOR H. PYLORI IS NEGATIVE. NEGATIVE FOR INTESTINAL METAPLASIA. Electronically Signed Sarah Argueta M.D. Gross Description Received in formalin, labeled "biopsy gastric antrum" are 2 bennett, irregular portions of soft tissue measuring 0.2 to 0.3 cm. in greatest dimension. The specimen is submitted in toto in one cassette. KWChristelle/03/26/2019 vijay/03/26/2019
== END 2019-03-24 14:45 | disposition short-term general hospital (02) | DRG 242 ==
LOC: JER 12:51 → JERBED 19:31 → J8W 23:58 → JICU 03-24 12:13
PROVIDERS: ADMIT Internal Medicine; ATTEND Internal Medicine
PROC: 0W3P8ZZ Control Bleeding in Gastrointestinal Tract, Via Natural or Artificial Opening Endoscopic (ICD-10-PCS; 2019-03-24)
PROC: 0DB68ZX Excision of Stomach, Via Natural or Artificial Opening Endoscopic, Diagnostic (ICD-10-PCS; principal; 2019-03-24 09:00)
DX: I85.01 Esophageal varices with bleeding (principal); E11.65 Type 2 diabetes mellitus with hyperglycemia; D62 Acute posthemorrhagic anemia; K22.10 Ulcer of esophagus without bleeding; E88.09 Other disorders of plasma-protein metabolism, not elsewhere classified; I10 Essential (primary) hypertension; E66.9 Obesity, unspecified; Z79.4 Long term (current) use of insulin; Z68.33 Body mass index [BMI] 33.0-33.9, adult
CPT/HCPCS: 36415; 36430; 76705-TC; 80048; 80053; 80061; 81003; 82272; 82550; 82728; 82803; 82962; 83036; 83540; 83550; 83690; 83721; 83735; 84100; 84443; 84484; 85025; 85027; 85044; 85610; 86850; 86900; 86901; 86922; 87086; 88305-TC; 93005; 93010; 94760; 97116-GP; 97161-GP; 99283-25; J1644; J7030; P9038; P9058

== ENCOUNTER 2021-06-04 02:15 | Inpatient (IN) | payer OTHER ==
[2021-06-04 02:28] VITALS: BMI 36.0
[2021-06-04] MEDS ORDERED: ACETAMINOPHEN 500 MG TABLET (FP) PO ONE (03:28)
[2021-06-04] MEDS ORDERED: ACETAMINOPHEN 325 MG TABLET (FP) ONE (03:38)
[2021-06-04 03:57] LABS: BASO % 0.9 % (0-2.0); EOS % 2.4 % (0-4.5); HEMATOCRIT 29.6 % (35.4-49); HEMOGLOBIN 10.1 GM/dL (11.7-16.9); LYMPH % 15.8 % (8-40); MCH 29.1 pg (25.7-33.7); MCHC 34.2 g/dl (32.0-35.9); MEAN CELL VOLUME 85.1 fl (80-96); MEAN PLT VOLUME 7.8 fl (7.5-11.1); MONO % 14.5 % (3.8-10.2); NEUT % 66.4 % (42.8-82.8); PLATELET COUNT 83 10^3/uL (134-434); RBC 3.48 M/mm3 (4.00-5.60); RDW 18.3 % (11.9-15.9)
[2021-06-04 04:13] LABS: INR 1.58 (0.83-1.09); PROTHROMBIN TIME (PATIENT) 17.8 SEC (9.7-13.0)
[2021-06-04 04:16] LABS: ACTIVATED PTT 30.7 SECONDS (25.2-36.5)
[2021-06-04 04:40] LABS: BLOOD UREA NITROGEN 8.1 mg/dL (7-18); CALCIUM 7.3 mg/dL (8.5-10.1); CREATININE 0.7 mg/dL (0.55-1.3)
[2021-06-04 04:41] LABS: ALBUMIN 1.8 g/dl (3.4-5.0); BILIRUBIN,TOTAL 1.3 mg/dL (0.2-1)
[2021-06-04] MEDS ORDERED: CEFTRIAXONE 1,000 MG in DEXTROSE 5%-WATER - 50 ML IVPB ONE (07:31)
[2021-06-04 07:34] LABS: ANISOCYTOSIS 2+; MACROCYTOSIS 0; PLATELET ESTIMATE DECREASED
[2021-06-04] MEDS ORDERED: CEFTRIAXONE 1 GM/50 ML BAG ONE (08:23)
[2021-06-04 09:05] LABS: ALBUMIN 1.8 g/dl (3.4-5.0); BILIRUBIN,TOTAL 1.6 mg/dL (0.2-1); BLOOD UREA NITROGEN 8.2 mg/dL (7-18); CALCIUM 7.5 mg/dL (8.5-10.1); CREATININE 0.7 mg/dL (0.55-1.3); TOT PROT 6.8 g/dl (6.4-8.2)
[2021-06-04] MEDS ORDERED: POTASSIUM CHLORIDE TABS 20 MEQ TABLET.ER (FP) PO ONE ×2 (09:19→10:09)
[2021-06-04] MEDS: ALBUMIN HUMAN 25% 12.5 GM/50 ML VIAL IVPB SCH ×2 (10:15→10:44)
[2021-06-04 12:16] LABS: PH,URINE 6.5 (5.0-8.0); URINE APPEARANCE Clear; URINE BILIRUBIN Negative (NEGATIVE); URINE COLOR Yellow; URINE GLUCOSE (UA) Negative (NEGATIVE); URINE KETONE Negative (NEGATIVE); URINE LEUK ESTERASE Negative (NEGATIVE); URINE NITRITE Negative (NEGATIVE); URINE PROTEIN Negative (NEGATIVE); URINE UROBILINOGEN 0.2 mg/dL (0.2-1.0)
[2021-06-04] MEDS: INSULIN SLIDING SCALE (NOVOLOG) 1 VIAL SQ SCH ×3 (13:57→21:33)
[2021-06-04 17:06] LABS: BF WBC & OTHER NUCLEATED CELLS 1251 /mm3
[2021-06-04 17:39] LABS: BODY FLUID MACROPHAGES 11 %; BODY FLUID MONOCYTE 12 %
[2021-06-04 20:13] LABS: N-TERMINAL BNP 963.6 pg/ml (5-125); TOT PROT 6.6 g/dl (6.4-8.2)
[2021-06-04] MEDS ORDERED: INSULIN (NOVOLOG) ASPART 100 UNITS/ML 10ML VIAL ONE (21:21)
[2021-06-04] MEDS: CARVEDILOL 3.125 MG TABLET (FP) PO SCH (21:29)
[2021-06-05] MEDS: INSULIN SLIDING SCALE (NOVOLOG) 1 VIAL SQ SCH ×3 (06:33→16:01)
[2021-06-05 08:28] LABS: EOS % 7.8 % (0-4.5); HEMATOCRIT 33.2 % (35.4-49); HEMOGLOBIN 11.4 GM/dL (11.7-16.9); LYMPH % 23.4 % (8-40); MCH 29.5 pg (25.7-33.7); MCHC 34.3 g/dl (32.0-35.9); MEAN CELL VOLUME 85.9 fl (80-96); MEAN PLT VOLUME 7.5 fl (7.5-11.1); NEUT % 54.8 % (42.8-82.8); PLATELET COUNT 69 10^3/uL (134-434); RBC 3.86 M/mm3 (4.00-5.60); RDW 18.9 % (11.9-15.9); WHITE BLOOD COUNT 4.3 K/mm3 (4.0-10.0)
[2021-06-05 08:47] LABS: CALCIUM 7.9 mg/dL (8.5-10.1)
[2021-06-05 08:48] LABS: ALBUMIN 1.8 g/dl (3.4-5.0); MAGNESIUM 1.5 mg/dL (1.8-2.4)
[2021-06-05 08:49] LABS: BLOOD UREA NITROGEN 6.2 mg/dL (7-18)
[2021-06-05 08:51] LABS: CREATININE 0.5 mg/dL (0.55-1.3); PHOSPHOROUS 3.4 mg/dL (2.5-4.9)
[2021-06-05 08:52] LABS: BILIRUBIN,TOTAL 1.2 mg/dL (0.2-1)
[2021-06-05 08:53] LABS: TOT PROT 6.7 g/dl (6.4-8.2)
[2021-06-05] MEDS: FUROSEMIDE 40 MG TABLET (FP) PO SCH (09:31)
[2021-06-05] MEDS: CARVEDILOL 3.125 MG TABLET (FP) PO SCH (09:41)
[2021-06-05] MEDS ORDERED: SPIRONOLACTONE 25 MG TABLET PO SCH (10:00)
[2021-06-05] MEDS ORDERED: MAGNESIUM SULF 50% (8.12 MEQ/2 ML-1 GM VIAL) IVPB ONE (16:43)
[2021-06-05] MEDS ORDERED: VANCOMYCIN PREMIX 1.5 GM 1,500 MG/300 ML BAG IVPB ONE (17:14)
[2021-06-05] MEDS: VANCOMYCIN PREMIX 1.5 GM 1,500 MG/300 ML BAG IVPB SCH ×2 (17:17→21:56)
[2021-06-05] MEDS ORDERED: DEXTROSE 5%-WATER 100 ML IVPB ONE (17:18)
[2021-06-05] MEDS: CEFTRIAXONE 2 GM in DEXTROSE 5%-WATER 2 GM/100 ML BAG IVPB SCH (17:25)
[2021-06-05] MEDS: NADOLOL 20 MG TABLET (FP) PO SCH (22:10)
[2021-06-06 06:46] LABS: BASO % 1.2 % (0-2.0); EOS % 9.4 % (0-4.5); HEMATOCRIT 32.2 % (35.4-49); HEMOGLOBIN 10.9 GM/dL (11.7-16.9); LYMPH % 28.3 % (8-40); MCH 29.2 pg (25.7-33.7); MCHC 33.8 g/dl (32.0-35.9); MEAN CELL VOLUME 86.6 fl (80-96); MEAN PLT VOLUME 7.9 fl (7.5-11.1); MONO % 14.2 % (3.8-10.2); NEUT % 46.9 % (42.8-82.8); PLATELET COUNT 72 10^3/uL (134-434); RBC 3.72 M/mm3 (4.00-5.60); RDW 18.6 % (11.9-15.9); WHITE BLOOD COUNT 3.9 K/mm3 (4.0-10.0)
[2021-06-06 06:55] LABS: ALBUMIN 1.6 g/dl (3.4-5.0); BLOOD UREA NITROGEN 5.5 mg/dL (7-18); CALCIUM 7.6 mg/dL (8.5-10.1)
[2021-06-06 06:56] LABS: MAGNESIUM 1.6 mg/dL (1.8-2.4)
[2021-06-06 06:58] LABS: BILIRUBIN,DIRECT 0.3 mg/dL (0.0-0.2); CREATININE 0.5 mg/dL (0.55-1.3); PHOSPHOROUS 3.8 mg/dL (2.5-4.9)
[2021-06-06 07:00] LABS: BILIRUBIN,TOTAL 0.8 mg/dL (0.2-1); TOT PROT 6.1 g/dl (6.4-8.2)
[2021-06-06] MEDS: INSULIN (NOVOLOG) ASPART 100 UNITS/ML 10ML VIAL SQ SCH ×3 (08:25→17:05)
[2021-06-06] MEDS ORDERED: PT OWN MED DRAWER 7, Y5N ONE (09:04)
[2021-06-06] MEDS ORDERED: DEXTROSE 5%-WATER 100 ML IVPB ONE (09:05)
[2021-06-06] MEDS: CEFTRIAXONE 2 GM in DEXTROSE 5%-WATER 2 GM/100 ML BAG IVPB SCH (09:20)
[2021-06-06] MEDS: SPIRONOLACTONE 25 MG TABLET PO SCH (09:21)
[2021-06-06] MEDS: FUROSEMIDE 40 MG TABLET (FP) PO SCH (09:21)
[2021-06-06] MEDS: NADOLOL 20 MG TABLET (FP) PO SCH (09:21)
[2021-06-06] MEDS ORDERED: MAGNESIUM SULF 50% (8.12 MEQ/2 ML-1 GM VIAL) IVPB ONE (11:04)
[2021-06-06] MEDS: HEPARIN NA (PORCINE) 5,000 UNITS/ML 1ML VIAL SQ SCH ×2 (17:06→21:45)
[2021-06-07 00:09] LABS: BODY FLUID ALBUMIN 0.5 g/dL (Not Estab.)
[2021-06-07] MEDS: HEPARIN NA (PORCINE) 5,000 UNITS/ML 1ML VIAL SQ SCH ×3 (06:04→21:36)
[2021-06-07] MEDS: INSULIN (NOVOLOG) ASPART 100 UNITS/ML 10ML VIAL SQ SCH ×3 (06:05→16:35)
[2021-06-07 07:41] LABS: HEMATOCRIT 31.3 % (35.4-49); HEMOGLOBIN 10.6 GM/dL (11.7-16.9); MCH 29.4 pg (25.7-33.7); MCHC 33.7 g/dl (32.0-35.9); MEAN CELL VOLUME 87.3 fl (80-96); MEAN PLT VOLUME 7.7 fl (7.5-11.1); PLATELET COUNT 79 10^3/uL (134-434); RBC 3.59 M/mm3 (4.00-5.60); RDW 18.8 % (11.9-15.9); WHITE BLOOD COUNT 3.1 K/mm3 (4.0-10.0)
[2021-06-07 07:45] LABS: BLOOD UREA NITROGEN 7.2 mg/dL (7-18); CALCIUM 7.8 mg/dL (8.5-10.1)
[2021-06-07 07:49] LABS: CREATININE 0.5 mg/dL (0.55-1.3)
[2021-06-07] MEDS ORDERED: PT OWN MED DRAWER 7, Y5N ONE (08:45)
[2021-06-07] MEDS ORDERED: DEXTROSE 5%-WATER 100 ML IVPB ONE (08:48)
[2021-06-07] MEDS: FUROSEMIDE 40 MG TABLET (FP) PO SCH (09:33)
[2021-06-07] MEDS: CEFTRIAXONE 2 GM in DEXTROSE 5%-WATER 2 GM/100 ML BAG IVPB SCH (09:33)
[2021-06-07] MEDS: SPIRONOLACTONE 25 MG TABLET PO SCH (09:33)
[2021-06-07] MEDS: NADOLOL 20 MG TABLET (FP) PO SCH (09:33)
[2021-06-08] MEDS: HEPARIN NA (PORCINE) 5,000 UNITS/ML 1ML VIAL SQ SCH ×3 (05:44→21:33)
[2021-06-08] MEDS: INSULIN (NOVOLOG) ASPART 100 UNITS/ML 10ML VIAL SQ SCH ×3 (06:06→17:17)
[2021-06-08 07:40] LABS: HEMATOCRIT 30.1 % (35.4-49); HEMOGLOBIN 10.4 GM/dL (11.7-16.9); MCH 30.2 pg (25.7-33.7); MCHC 34.7 g/dl (32.0-35.9); MEAN PLT VOLUME 7.8 fl (7.5-11.1); PLATELET COUNT 76 10^3/uL (134-434); RBC 3.46 M/mm3 (4.00-5.60); RDW 18.5 % (11.9-15.9); WHITE BLOOD COUNT 3.1 K/mm3 (4.0-10.0)
[2021-06-08 08:13] LABS: BLOOD UREA NITROGEN 5.8 mg/dL (7-18)
[2021-06-08 08:16] LABS: CREATININE 0.5 mg/dL (0.55-1.3)
[2021-06-08] MEDS ORDERED: PT OWN MED DRAWER 7, Y5N ONE (09:30)
[2021-06-08] MEDS ORDERED: DEXTROSE 5%-WATER 100 ML IVPB ONE (09:30)
[2021-06-08] MEDS: SPIRONOLACTONE 25 MG TABLET PO SCH (09:34)
[2021-06-08] MEDS: FUROSEMIDE 40 MG TABLET (FP) PO SCH (09:34)
[2021-06-08] MEDS: CEFTRIAXONE 2 GM in DEXTROSE 5%-WATER 2 GM/100 ML BAG IVPB SCH (09:34)
[2021-06-08] MEDS: NADOLOL 20 MG TABLET (FP) PO SCH (09:34)
[2021-06-08 14:49] LABS: MAGNESIUM 1.6 mg/dL (1.8-2.4)
[2021-06-09] MEDS: INSULIN (NOVOLOG) ASPART 100 UNITS/ML 10ML VIAL SQ SCH ×3 (06:45→16:59)
[2021-06-09] MEDS: HEPARIN NA (PORCINE) 5,000 UNITS/ML 1ML VIAL SQ SCH ×3 (06:45→21:15)
[2021-06-09] MEDS ORDERED: POTASSIUM CHLORIDE TABS 20 MEQ TABLET.ER (FP) PO ONE (07:45)
[2021-06-09 07:47] LABS: BASO % 1.1 % (0-2.0); EOS % 7.4 % (0-4.5); HEMATOCRIT 31.6 % (35.4-49); HEMOGLOBIN 10.7 GM/dL (11.7-16.9); LYMPH % 28.3 % (8-40); MCH 29.6 pg (25.7-33.7); MEAN CELL VOLUME 87.3 fl (80-96); MEAN PLT VOLUME 7.6 fl (7.5-11.1); MONO % 12.1 % (3.8-10.2); NEUT % 51.1 % (42.8-82.8); PLATELET COUNT 93 10^3/uL (134-434); RBC 3.62 M/mm3 (4.00-5.60); RDW 19.2 % (11.9-15.9); WHITE BLOOD COUNT 4.1 K/mm3 (4.0-10.0)
[2021-06-09 07:59] LABS: ALBUMIN 1.8 g/dl (3.4-5.0)
[2021-06-09 08:00] LABS: CALCIUM 7.9 mg/dL (8.5-10.1)
[2021-06-09 08:01] LABS: BILIRUBIN,TOTAL 0.7 mg/dL (0.2-1); CREATININE 0.5 mg/dL (0.55-1.3); PHOSPHOROUS 3.4 mg/dL (2.5-4.9); TOT PROT 6.6 g/dl (6.4-8.2)
[2021-06-09 08:02] LABS: BLOOD UREA NITROGEN 4.9 mg/dL (7-18)
[2021-06-09 08:03] LABS: MAGNESIUM 1.7 mg/dL (1.8-2.4)
[2021-06-09] MEDS ORDERED: DEXTROSE 5%-WATER 100 ML IVPB ONE (09:10)
[2021-06-09] MEDS: CEFTRIAXONE 2 GM in DEXTROSE 5%-WATER 2 GM/100 ML BAG IVPB SCH (09:54)
[2021-06-09] MEDS: FUROSEMIDE 40 MG TABLET (FP) PO SCH (09:55)
[2021-06-09] MEDS: SPIRONOLACTONE 25 MG TABLET PO SCH (09:55)
[2021-06-09] MEDS: NADOLOL 20 MG TABLET (FP) PO SCH (09:55)
[2021-06-09] MEDS ORDERED: MAGNESIUM OXIDE 400 MG TABLET (FP) PO ONE (21:43)
[2021-06-10] MEDS: HEPARIN NA (PORCINE) 5,000 UNITS/ML 1ML VIAL SQ SCH ×2 (06:02→13:58)
[2021-06-10] MEDS: INSULIN (NOVOLOG) ASPART 100 UNITS/ML 10ML VIAL SQ SCH ×3 (06:03→16:48)
[2021-06-10 07:08] LABS: BASO % 1.2 % (0-2.0); EOS % 8.2 % (0-4.5); HEMOGLOBIN 9.9 GM/dL (11.7-16.9); LYMPH % 22.2 % (8-40); MCHC 34.1 g/dl (32.0-35.9); MEAN PLT VOLUME 7.6 fl (7.5-11.1); MONO % 12.8 % (3.8-10.2); NEUT % 55.6 % (42.8-82.8); PLATELET COUNT 77 10^3/uL (134-434); RBC 3.29 M/mm3 (4.00-5.60); RDW 19.3 % (11.9-15.9); WHITE BLOOD COUNT 3.6 K/mm3 (4.0-10.0)
[2021-06-10 07:28] LABS: ALBUMIN 1.7 g/dl (3.4-5.0); BLOOD UREA NITROGEN 5.3 mg/dL (7-18); MAGNESIUM 1.6 mg/dL (1.8-2.4)
[2021-06-10 07:30] LABS: CREATININE 0.4 mg/dL (0.55-1.3); PHOSPHOROUS 3.1 mg/dL (2.5-4.9)
[2021-06-10 07:32] LABS: BILIRUBIN,TOTAL 0.7 mg/dL (0.2-1); TOT PROT 6.2 g/dl (6.4-8.2)
[2021-06-10] MEDS ORDERED: PT OWN MED DRAWER 7, Y5N ONE (09:19)
[2021-06-10] MEDS ORDERED: DEXTROSE 5%-WATER 100 ML IVPB ONE (09:20)
[2021-06-10 09:23] VITALS: BP 114/60; PULSE 80; TEMP 97.8
[2021-06-10] MEDS: FUROSEMIDE 40 MG TABLET (FP) PO SCH (09:35)
[2021-06-10] MEDS: SPIRONOLACTONE 25 MG TABLET PO SCH (09:35)
[2021-06-10] MEDS: CEFTRIAXONE 2 GM in DEXTROSE 5%-WATER 2 GM/100 ML BAG IVPB SCH (09:35)
[2021-06-10] MEDS: NADOLOL 20 MG TABLET (FP) PO SCH (09:35)
== END 2021-06-10 18:18 | disposition home or self-care (01) | DRG 952 ==
LOC: JER 02:15 → JERBED 09:57 → J7W 12:38 → J4W 06-05 20:47
PROVIDERS: ADMIT Internal Medicine; ATTEND Internal Medicine
PROC: 0W9G3ZX Drainage of Peritoneal Cavity, Percutaneous Approach, Diagnostic (ICD-10-PCS; principal; 2021-06-04)
PROC: 02HV33Z Insertion of Infusion Device into Superior Vena Cava, Percutaneous Approach (ICD-10-PCS; 2021-06-10)
PROC: B518ZZA Fluoroscopy of Superior Vena Cava, Guidance (ICD-10-PCS; 2021-06-10)
DX: I33.0 Acute and subacute infective endocarditis (principal); K65.2 Spontaneous bacterial peritonitis; K70.31 Alcoholic cirrhosis of liver with ascites; B95.5 Unspecified streptococcus as the cause of diseases classified elsewhere; E87.70 Fluid overload, unspecified; E78.5 Hyperlipidemia, unspecified; I10 Essential (primary) hypertension; E11.9 Type 2 diabetes mellitus without complications; R26.2 Difficulty in walking, not elsewhere classified; E87.1 Hypo-osmolality and hyponatremia; E87.6 Hypokalemia; K42.9 Umbilical hernia without obstruction or gangrene; E88.81 Metabolic syndrome and other insulin resistance; D69.6 Thrombocytopenia, unspecified; E88.09 Other disorders of plasma-protein metabolism, not elsewhere classified; Z95.810 Presence of automatic (implantable) cardiac defibrillator
CPT/HCPCS: 36415; 36569; 71045-TC-FY; 74176-TC; 76700-TC; 76942-TC; 77001-TC-FY; 80048; 80053; 80076; 81003; 82042; 82150; 82465; 82945; 82962; 83036; 83605; 83615; 83735; 83880; 83986; 84100; 84157; 84478; 85025; 85027; 85610; 85730; 86140; 87040; 87070; 87075; 87086; 87102; 87116; 87186; 87205; 87206; 87210; 88108; 88305-TC; 93005; 93010; 93306-TC; 93970-TC; 97116-GP; 97161-GP; 99285-25; C1751; C9803; J1644; P9047; U0003; U0005

== ENCOUNTER 2021-06-11 11:21 | Day surgery (SDC) | payer OTHER ==
[2021-06-11] MEDS ORDERED: CEFTRIAXONE 2 GM in DEXTROSE 5%-WATER 100 ML IVPB ONE (12:00)
[2021-06-11] MEDS ORDERED: DEXTROSE 5%-WATER 100 ML IVPB ONE (12:04)
[2021-06-11 12:12] VITALS: TEMP 98.3
[2021-06-11 12:38] VITALS: BP 115/63; PULSE 82
== END 2021-06-11 14:00 | disposition home or self-care (01) ==
LOC: JINFUSION 11:21 → J7W 11:33 → JINFUSION 14:00
PROVIDERS: ATTEND Student in an Organized Health Care Education/Training Program
DX: K65.2 Spontaneous bacterial peritonitis (principal); B95.5 Unspecified streptococcus as the cause of diseases classified elsewhere
CPT/HCPCS: 96365

== ENCOUNTER 2021-06-12 11:59 | Day surgery (SDC) | payer OTHER ==
[2021-06-12] MEDS ORDERED: DEXTROSE 5%-WATER 100 ML IVPB ONE (12:24)
[2021-06-12 12:36] VITALS: TEMP 98.2
[2021-06-12] MEDS ORDERED: CEFTRIAXONE 2 GM in DEXTROSE 5%-WATER 100 ML IVPB ONE (12:45)
[2021-06-12 13:58] VITALS: BP 109/64; PULSE 78
== END 2021-06-12 14:00 | disposition home or self-care (01) ==
LOC: JINFUSION 11:59 → J7W 12:01 → JINFUSION 14:00
PROVIDERS: ATTEND Student in an Organized Health Care Education/Training Program
DX: K65.2 Spontaneous bacterial peritonitis (principal); B95.5 Unspecified streptococcus as the cause of diseases classified elsewhere
CPT/HCPCS: 96365

== ENCOUNTER 2021-06-13 11:57 | Day surgery (SDC) | payer OTHER ==
[2021-06-13] MEDS ORDERED: CEFTRIAXONE 2 GM in DEXTROSE 5%-WATER 100 ML IVPB ONE (12:15)
[2021-06-13] MEDS ORDERED: DEXTROSE 5%-WATER 100 ML IVPB ONE (12:24)
[2021-06-13 14:36] VITALS: BP 117/75; PULSE 88
== END 2021-06-13 14:40 | disposition home or self-care (01) ==
LOC: J7W 11:57 → JINFUSION 11:57
PROVIDERS: ATTEND Student in an Organized Health Care Education/Training Program
DX: K65.2 Spontaneous bacterial peritonitis (principal)
CPT/HCPCS: 96365

== ENCOUNTER 2021-06-14 11:40 | Day surgery (SDC) | payer OTHER ==
[~2021-06-14 11:40] MED LIST: CEFTRIAXONE 2 GM in DEXTROSE 5%-WATER 100 ML IVPB ONE
[2021-06-14] MEDS ORDERED: DEXTROSE 5%-WATER 100 ML IVPB ONE (12:00)
[2021-06-14 15:58] VITALS: TEMP 99
[2021-06-14 15:59] VITALS: BP 105/60; PULSE 66
== END 2021-06-14 13:00 | disposition home or self-care (01) ==
LOC: JINFUSION 11:40 → J7W 11:41 → JINFUSION 13:00
PROVIDERS: ATTEND Student in an Organized Health Care Education/Training Program
DX: K65.2 Spontaneous bacterial peritonitis (principal); B95.5 Unspecified streptococcus as the cause of diseases classified elsewhere
CPT/HCPCS: 96365

== ENCOUNTER 2021-06-15 12:00 | Day surgery (SDC) | payer OTHER ==
[2021-06-15] MEDS ORDERED: CEFTRIAXONE 2 GM in DEXTROSE 5%-WATER 100 ML IVPB ONE (12:15)
[2021-06-15] MEDS ORDERED: DEXTROSE 5%-WATER 100 ML IVPB ONE (12:21)
[2021-06-15 13:12] VITALS: BP 118/66; PULSE 80; TEMP 97.9
== END 2021-06-15 13:12 | disposition home or self-care (01) ==
LOC: JINFUSION 12:00 → J7W 12:01 → JINFUSION 13:12
PROVIDERS: ATTEND Student in an Organized Health Care Education/Training Program
DX: K65.2 Spontaneous bacterial peritonitis (principal); B95.5 Unspecified streptococcus as the cause of diseases classified elsewhere
CPT/HCPCS: 96365

== ENCOUNTER 2021-06-16 08:04 | Day surgery (SDC) | payer OTHER ==
[2021-06-16] MEDS ORDERED: CEFTRIAXONE 2 GM in DEXTROSE 5%-WATER 100 ML IVPB ONE (08:15)
[2021-06-16] MEDS ORDERED: DEXTROSE 5%-WATER 100 ML IVPB ONE (08:17)
[2021-06-16 08:59] VITALS: BP 116/62; PULSE 72; TEMP 98.5
== END 2021-06-16 09:00 | disposition home or self-care (01) ==
LOC: JINFUSION 08:04 → J7W 08:04 → JINFUSION 09:00
PROVIDERS: ATTEND Student in an Organized Health Care Education/Training Program
DX: K65.2 Spontaneous bacterial peritonitis (principal); B95.5 Unspecified streptococcus as the cause of diseases classified elsewhere
CPT/HCPCS: 96365

== ENCOUNTER 2021-06-17 07:52 | Day surgery (SDC) | payer OTHER ==
[2021-06-17] MEDS ORDERED: CEFTRIAXONE 2 GM in DEXTROSE 5%-WATER 100 ML IVPB ONE (08:30)
[2021-06-17] MEDS ORDERED: DEXTROSE 5%-WATER 100 ML IVPB ONE (08:46)
[2021-06-17 09:24] LABS: BASO % 1.4 % (0-2.0); EOS % 7.4 % (0-4.5); HEMATOCRIT 31.3 % (35.4-49); HEMOGLOBIN 10.6 GM/dL (11.7-16.9); LYMPH % 21.5 % (8-40); MCHC 33.8 g/dl (32.0-35.9); MEAN CELL VOLUME 88.8 fl (80-96); MEAN PLT VOLUME 7.6 fl (7.5-11.1); MONO % 9.9 % (3.8-10.2); NEUT % 59.8 % (42.8-82.8); PLATELET COUNT 75 10^3/uL (134-434); RBC 3.53 M/mm3 (4.00-5.60); RDW 20.1 % (11.9-15.9); WHITE BLOOD COUNT 4.7 K/mm3 (4.0-10.0)
[2021-06-17 09:56] LABS: BLOOD UREA NITROGEN 8.2 mg/dL (7-18); CALCIUM 8.1 mg/dL (8.5-10.1)
[2021-06-17 09:59] LABS: CREATININE 0.6 mg/dL (0.55-1.3)
[2021-06-17 10:01] LABS: BILIRUBIN,TOTAL 0.7 mg/dL (0.2-1); TOT PROT 7.6 g/dl (6.4-8.2)
[2021-06-17 10:04] VITALS: BP 106/59; PULSE 68; TEMP 98.8
[2021-06-17 10:28] LABS: ALBUMIN 2.2 g/dl (3.4-5.0)
== END 2021-06-17 10:00 | disposition home or self-care (01) ==
LOC: JINFUSION 07:52 → J7W 07:53 → JINFUSION 10:00
PROVIDERS: ATTEND Student in an Organized Health Care Education/Training Program
DX: K65.2 Spontaneous bacterial peritonitis (principal); B95.5 Unspecified streptococcus as the cause of diseases classified elsewhere
CPT/HCPCS: 36415; 80053; 85025; 86140; 96365

== ENCOUNTER 2021-06-18 08:00 | Day surgery (SDC) | payer OTHER ==
[2021-06-18] MEDS ORDERED: DEXTROSE 5%-WATER 100 ML IVPB ONE (08:12)
[2021-06-18] MEDS ORDERED: CEFTRIAXONE 2 GM in DEXTROSE 5%-WATER 100 ML IVPB ONE (08:15)
[2021-06-18 10:57] VITALS: BP 118/68; PULSE 74; TEMP 99
== END 2021-06-18 09:50 | disposition home or self-care (01) ==
LOC: JINFUSION 08:00 → J7W 08:00 → JINFUSION 09:50
PROVIDERS: ATTEND Student in an Organized Health Care Education/Training Program
DX: K65.2 Spontaneous bacterial peritonitis (principal); B95.5 Unspecified streptococcus as the cause of diseases classified elsewhere
CPT/HCPCS: 96365

== ENCOUNTER 2021-06-19 08:22 | Day surgery (SDC) | payer OTHER ==
[2021-06-19 08:34] VITALS: BP 110/68; PULSE 70; TEMP 99
== END 2021-06-19 10:54 | disposition home or self-care (01) ==
LOC: JINFUSION 08:22 → J7W 08:23 → JINFUSION 10:54
PROVIDERS: ATTEND Student in an Organized Health Care Education/Training Program
DX: K65.2 Spontaneous bacterial peritonitis (principal); B95.5 Unspecified streptococcus as the cause of diseases classified elsewhere
CPT/HCPCS: 96365

== ENCOUNTER 2021-06-20 08:39 | Day surgery (SDC) | payer OTHER ==
[2021-06-20 08:51] VITALS: BP 116/62; PULSE 81; TEMP 98.8
[2021-06-20] MEDS ORDERED: DEXTROSE 5%-WATER 100 ML IVPB ONE (08:56)
[2021-06-20] MEDS ORDERED: CEFTRIAXONE 2 GM in DEXTROSE 5%-WATER 100 ML IVPB ONE (09:00)
== END 2021-06-20 09:39 | disposition home or self-care (01) ==
LOC: JINFUSION 08:39 → J7W 08:39 → JINFUSION 09:39
PROVIDERS: ATTEND Student in an Organized Health Care Education/Training Program
DX: K65.2 Spontaneous bacterial peritonitis (principal); B95.5 Unspecified streptococcus as the cause of diseases classified elsewhere
CPT/HCPCS: 96365

== ENCOUNTER 2021-06-21 08:11 | Day surgery (SDC) | payer OTHER ==
[2021-06-21] MEDS ORDERED: DEXTROSE 5%-WATER 100 ML IVPB ONE (08:15)
[2021-06-21] MEDS ORDERED: CEFTRIAXONE 2 GM in DEXTROSE 5%-WATER 100 ML IVPB ONE (08:15)
[2021-06-21 09:23] VITALS: BP 114/60; PULSE 69; TEMP 98.3
== END 2021-06-21 10:09 | disposition home or self-care (01) ==
LOC: J7W 08:11 → JINFUSION 08:11
PROVIDERS: ATTEND Student in an Organized Health Care Education/Training Program
DX: K65.2 Spontaneous bacterial peritonitis (principal); B95.5 Unspecified streptococcus as the cause of diseases classified elsewhere
CPT/HCPCS: 96365

== ENCOUNTER 2021-06-22 07:59 | Day surgery (SDC) | payer OTHER ==
[2021-06-22] MEDS ORDERED: DEXTROSE 5%-WATER 100 ML IVPB ONE (08:07)
[2021-06-22] MEDS ORDERED: CEFTRIAXONE 2 GM in DEXTROSE 5%-WATER 100 ML IVPB ONE (08:15)
[2021-06-22 08:44] VITALS: BP 122/65; PULSE 73; TEMP 98.3
== END 2021-06-22 09:59 | disposition home or self-care (01) ==
LOC: J7W 07:59 → JINFUSION 07:59
PROVIDERS: ATTEND Student in an Organized Health Care Education/Training Program
DX: K65.2 Spontaneous bacterial peritonitis (principal); B95.5 Unspecified streptococcus as the cause of diseases classified elsewhere
CPT/HCPCS: 96365; 96367

== ENCOUNTER 2021-06-23 07:59 | Day surgery (SDC) | payer OTHER ==
[2021-06-23] MEDS ORDERED: DEXTROSE 5%-WATER 100 ML IVPB ONE (08:13)
[2021-06-23] MEDS ORDERED: CEFTRIAXONE 2 GM in DEXTROSE 5%-WATER 100 ML IVPB ONE (08:15)
[2021-06-23 13:15] VITALS: BP 118/66; PULSE 84; TEMP 98.6
== END 2021-06-23 09:30 | disposition home or self-care (01) ==
LOC: JINFUSION 07:59 → J7W 07:59 → JINFUSION 09:30
PROVIDERS: ATTEND Student in an Organized Health Care Education/Training Program
DX: K65.2 Spontaneous bacterial peritonitis (principal); B95.5 Unspecified streptococcus as the cause of diseases classified elsewhere
CPT/HCPCS: 96365

== ENCOUNTER 2021-06-24 07:52 | Day surgery (SDC) | payer OTHER ==
[2021-06-24] MEDS ORDERED: CEFTRIAXONE 2 GM in DEXTROSE 5%-WATER 100 ML IVPB ONE (08:30)
[2021-06-24 08:41] VITALS: BP 112/65; PULSE 67; TEMP 98.7
[2021-06-24] MEDS ORDERED: DEXTROSE 5%-WATER 100 ML IVPB ONE (08:56)
[2021-06-24 09:00] LABS: BASO % 1.4 % (0-2.0); EOS % 13.1 % (0-4.5); HEMATOCRIT 30.1 % (35.4-49); HEMOGLOBIN 10.3 GM/dL (11.7-16.9); LYMPH % 22.4 % (8-40); MCH 30.8 pg (25.7-33.7); MCHC 34.1 g/dl (32.0-35.9); MEAN CELL VOLUME 90.3 fl (80-96); MEAN PLT VOLUME 7.6 fl (7.5-11.1); MONO % 11.3 % (3.8-10.2); NEUT % 51.8 % (42.8-82.8); PLATELET COUNT 79 10^3/uL (134-434); RBC 3.34 M/mm3 (4.00-5.60); RDW 19.7 % (11.9-15.9); WHITE BLOOD COUNT 4.1 K/mm3 (4.0-10.0)
[2021-06-24 09:11] LABS: CALCIUM 8.1 mg/dL (8.5-10.1)
[2021-06-24 09:12] LABS: ALBUMIN 2.2 g/dl (3.4-5.0); BLOOD UREA NITROGEN 5.7 mg/dL (7-18)
[2021-06-24 09:15] LABS: CREATININE 0.5 mg/dL (0.55-1.3)
[2021-06-24 09:17] LABS: BILIRUBIN,TOTAL 0.6 mg/dL (0.2-1); TOT PROT 7.4 g/dl (6.4-8.2)
== END 2021-06-24 09:15 | disposition home or self-care (01) ==
LOC: JINFUSION 07:52 → J7W 07:53 → JINFUSION 09:15
PROVIDERS: ATTEND Student in an Organized Health Care Education/Training Program
DX: K65.2 Spontaneous bacterial peritonitis (principal); B95.5 Unspecified streptococcus as the cause of diseases classified elsewhere
CPT/HCPCS: 36415; 80053; 85025; 86140; 96365

== ENCOUNTER 2021-06-25 07:48 | Day surgery (SDC) | payer OTHER ==
[2021-06-25] MEDS ORDERED: CEFTRIAXONE 2 GM in DEXTROSE 5%-WATER 100 ML IVPB ONE (08:00)
[2021-06-25 11:44] VITALS: BP 122/74; PULSE 78; TEMP 99
== END 2021-06-25 09:30 | disposition home or self-care (01) ==
LOC: JINFUSION 07:48 → J7W 07:50 → JINFUSION 09:30
PROVIDERS: ATTEND Student in an Organized Health Care Education/Training Program
DX: K65.2 Spontaneous bacterial peritonitis (principal); B95.5 Unspecified streptococcus as the cause of diseases classified elsewhere
CPT/HCPCS: 96365

== ENCOUNTER 2021-06-26 08:16 | Day surgery (SDC) | payer OTHER ==
[2021-06-26] MEDS ORDERED: CEFTRIAXONE 2 GM in DEXTROSE 5%-WATER 100 ML IVPB ONE (09:00)
[2021-06-26] MEDS ORDERED: DEXTROSE 5%-WATER 100 ML IVPB ONE (09:07)
[2021-06-26 17:22] VITALS: BP 111/58; PULSE 87; TEMP 98
== END 2021-06-26 17:23 | disposition home or self-care (01) ==
LOC: JINFUSION 08:16 → J7W 08:18 → JINFUSION 17:23
PROVIDERS: ATTEND Student in an Organized Health Care Education/Training Program
DX: K65.2 Spontaneous bacterial peritonitis (principal); B95.5 Unspecified streptococcus as the cause of diseases classified elsewhere
CPT/HCPCS: 96365

== ENCOUNTER 2021-06-27 07:49 | Day surgery (SDC) | payer OTHER ==
[2021-06-27] MEDS ORDERED: DEXTROSE 5%-WATER 100 ML IVPB ONE (08:27)
[2021-06-27] MEDS ORDERED: CEFTRIAXONE 2 GM in DEXTROSE 5%-WATER 100 ML IVPB ONE (08:30)
[2021-06-27 10:14] VITALS: BP 116/56; PULSE 67; TEMP 98.1
== END 2021-06-27 09:17 | disposition home or self-care (01) ==
LOC: JINFUSION 07:49 → J7W 07:49 → JINFUSION 09:17
PROVIDERS: ATTEND Student in an Organized Health Care Education/Training Program
DX: K65.2 Spontaneous bacterial peritonitis (principal); B95.5 Unspecified streptococcus as the cause of diseases classified elsewhere
CPT/HCPCS: 96365; 96367

== ENCOUNTER 2021-06-28 08:23 | Day surgery (SDC) | payer OTHER ==
[2021-06-28 08:41] VITALS: BP 118/59; PULSE 70; TEMP 98.6
== END 2021-06-28 09:30 | disposition home or self-care (01) ==
LOC: JINFUSION 08:23 → J7W 08:24 → JINFUSION 09:30
PROVIDERS: ATTEND Student in an Organized Health Care Education/Training Program
DX: K65.2 Spontaneous bacterial peritonitis (principal); B95.5 Unspecified streptococcus as the cause of diseases classified elsewhere
CPT/HCPCS: 96365

== ENCOUNTER 2021-06-29 08:01 | Day surgery (SDC) | payer OTHER ==
[2021-06-29] MEDS ORDERED: DEXTROSE 5%-WATER 100 ML IVPB ONE (08:15)
[2021-06-29] MEDS ORDERED: CEFTRIAXONE 2 GM in DEXTROSE 5%-WATER 100 ML IVPB ONE (08:15)
[2021-06-29 08:36] VITALS: TEMP 98.5
[2021-06-29 09:41] VITALS: BP 124/60; PULSE 71
== END 2021-06-29 10:14 | disposition home or self-care (01) ==
LOC: JINFUSION 08:01 → J7W 08:01 → JINFUSION 10:14
PROVIDERS: ATTEND Student in an Organized Health Care Education/Training Program
DX: K65.2 Spontaneous bacterial peritonitis (principal); B95.5 Unspecified streptococcus as the cause of diseases classified elsewhere
CPT/HCPCS: 96365

== ENCOUNTER 2021-06-30 07:59 | Day surgery (SDC) | payer OTHER ==
[2021-06-30] MEDS ORDERED: CEFTRIAXONE 2 GM in DEXTROSE 5%-WATER 100 ML IVPB SCH (08:00)
[2021-06-30] MEDS ORDERED: DEXTROSE 5%-WATER 100 ML IVPB ONE (08:19)
[2021-06-30 08:39] VITALS: BP 120/60; PULSE 80; TEMP 98.7
== END 2021-06-30 10:00 | disposition home or self-care (01) ==
LOC: JINFUSION 07:59 → J7W 08:00 → JINFUSION 10:00
PROVIDERS: ATTEND Student in an Organized Health Care Education/Training Program
DX: K65.2 Spontaneous bacterial peritonitis (principal); R78.81 Bacteremia; B95.5 Unspecified streptococcus as the cause of diseases classified elsewhere; K74.60 Unspecified cirrhosis of liver; R18.8 Other ascites; Z95.810 Presence of automatic (implantable) cardiac defibrillator
CPT/HCPCS: 96365

== ENCOUNTER 2021-07-01 08:22 | Day surgery (SDC) | payer OTHER ==
[2021-07-01] MEDS ORDERED: CEFTRIAXONE 2 GM in DEXTROSE 5%-WATER 100 ML IVPB SCH (08:30)
[2021-07-01] MEDS ORDERED: DEXTROSE 5%-WATER 100 ML IVPB ONE (08:31)
[2021-07-01 08:38] LABS: BASO % 1.2 % (0-2.0); EOS % 14.8 % (0-4.5); HEMATOCRIT 32.4 % (35.4-49); LYMPH % 22.4 % (8-40); MCH 30.8 pg (25.7-33.7); MCHC 33.8 g/dl (32.0-35.9); MEAN CELL VOLUME 91.1 fl (80-96); MEAN PLT VOLUME 7.5 fl (7.5-11.1); MONO % 11.5 % (3.8-10.2); NEUT % 50.1 % (42.8-82.8); PLATELET COUNT 67 10^3/uL (134-434); RBC 3.56 M/mm3 (4.00-5.60); RDW 18.7 % (11.9-15.9); WHITE BLOOD COUNT 3.6 K/mm3 (4.0-10.0)
[2021-07-01 08:48] LABS: CALCIUM 8.5 mg/dL (8.5-10.1)
[2021-07-01 08:49] LABS: ALBUMIN 2.3 g/dl (3.4-5.0); BLOOD UREA NITROGEN 7.6 mg/dL (7-18)
[2021-07-01 08:52] LABS: CREATININE 0.5 mg/dL (0.55-1.3)
[2021-07-01 08:54] LABS: BILIRUBIN,TOTAL 0.8 mg/dL (0.2-1); TOT PROT 7.5 g/dl (6.4-8.2)
[2021-07-01 09:12] VITALS: BP 124/61; PULSE 82; TEMP 97.9
== END 2021-07-01 13:27 | disposition home or self-care (01) ==
LOC: JINFUSION 08:22 → J7W 08:23 → JINFUSION 13:27
PROVIDERS: ATTEND Student in an Organized Health Care Education/Training Program
DX: K65.2 Spontaneous bacterial peritonitis (principal); B95.5 Unspecified streptococcus as the cause of diseases classified elsewhere; R78.81 Bacteremia; K74.60 Unspecified cirrhosis of liver; R18.8 Other ascites; Z95.810 Presence of automatic (implantable) cardiac defibrillator
CPT/HCPCS: 36415; 80053; 85025; 86140; 96365

== ENCOUNTER 2021-07-02 08:01 | Day surgery (SDC) | payer OTHER ==
[2021-07-02] MEDS ORDERED: CEFTRIAXONE 2 GM in DEXTROSE 5%-WATER 100 ML IVPB ONE (08:15)
[2021-07-02 08:55] VITALS: BP 130/74; PULSE 16; TEMP 98.1
== END 2021-07-02 08:57 | disposition home or self-care (01) ==
LOC: J7W 08:01 → JINFUSION 08:01
PROVIDERS: ATTEND Student in an Organized Health Care Education/Training Program
DX: K65.2 Spontaneous bacterial peritonitis (principal); B95.5 Unspecified streptococcus as the cause of diseases classified elsewhere; R78.81 Bacteremia; K74.60 Unspecified cirrhosis of liver; R18.8 Other ascites; Z95.810 Presence of automatic (implantable) cardiac defibrillator
CPT/HCPCS: 96365

== ENCOUNTER 2021-07-03 08:15 | Day surgery (SDC) | payer OTHER ==
[2021-07-03] MEDS ORDERED: CEFTRIAXONE 2 GM in DEXTROSE 5%-WATER 100 ML IVPB ONE (08:45)
[2021-07-03] MEDS ORDERED: DEXTROSE 5%-WATER 100 ML IVPB ONE (08:53)
[2021-07-03 09:47] VITALS: BP 125/85; PULSE 86
== END 2021-07-03 09:47 | disposition home or self-care (01) ==
LOC: JINFUSION 08:15 → J7W 08:15 → JINFUSION 09:47
PROVIDERS: ATTEND Student in an Organized Health Care Education/Training Program
DX: K65.2 Spontaneous bacterial peritonitis (principal); B95.5 Unspecified streptococcus as the cause of diseases classified elsewhere; R78.81 Bacteremia; K74.60 Unspecified cirrhosis of liver; R18.8 Other ascites; Z95.810 Presence of automatic (implantable) cardiac defibrillator
CPT/HCPCS: 96365

== ENCOUNTER 2021-07-04 08:05 | Day surgery (SDC) | payer OTHER ==
[2021-07-04] MEDS ORDERED: CEFTRIAXONE 2 GM in DEXTROSE 5%-WATER 100 ML IVPB ONE (08:15)
[2021-07-04] MEDS ORDERED: DEXTROSE 5%-WATER 100 ML IVPB ONE (08:21)
[2021-07-04 08:32] VITALS: BP 122/62; PULSE 77; TEMP 98.4
== END 2021-07-04 10:00 | disposition home or self-care (01) ==
LOC: J7W 08:05 → JINFUSION 08:05
PROVIDERS: ATTEND Student in an Organized Health Care Education/Training Program
DX: K65.2 Spontaneous bacterial peritonitis (principal); B95.5 Unspecified streptococcus as the cause of diseases classified elsewhere; R78.81 Bacteremia; K74.60 Unspecified cirrhosis of liver; R18.8 Other ascites; Z95.810 Presence of automatic (implantable) cardiac defibrillator
CPT/HCPCS: 96365

== ENCOUNTER 2021-07-05 08:04 | Day surgery (SDC) | payer OTHER ==
[2021-07-05] MEDS ORDERED: CEFTRIAXONE 2 GM in DEXTROSE 5%-WATER 100 ML IVPB ONE (08:15)
[2021-07-05] MEDS ORDERED: DEXTROSE 5%-WATER 100 ML IVPB ONE (08:24)
[2021-07-05 12:48] VITALS: BP 128/72; PULSE 76; TEMP 98.6
== END 2021-07-05 09:50 | disposition home or self-care (01) ==
LOC: J7W 08:04 → JINFUSION 08:04
PROVIDERS: ATTEND Student in an Organized Health Care Education/Training Program
DX: K65.2 Spontaneous bacterial peritonitis (principal); B95.5 Unspecified streptococcus as the cause of diseases classified elsewhere; R78.81 Bacteremia; K74.60 Unspecified cirrhosis of liver; R18.8 Other ascites; Z95.810 Presence of automatic (implantable) cardiac defibrillator
CPT/HCPCS: 96365

== ENCOUNTER 2021-07-06 08:01 | Day surgery (SDC) | payer OTHER ==
[2021-07-06] MEDS ORDERED: DEXTROSE 5%-WATER 100 ML IVPB ONE (08:35)
[2021-07-06] MEDS ORDERED: CEFTRIAXONE 2 GM in DEXTROSE 5%-WATER 100 ML IVPB ONE (08:45)
[2021-07-06 10:48] VITALS: BP 110/68; PULSE 72; TEMP 98.5
== END 2021-07-06 10:52 | disposition home or self-care (01) ==
LOC: JINFUSION 08:01 → J7W 08:01 → JINFUSION 10:52
PROVIDERS: ATTEND Student in an Organized Health Care Education/Training Program
DX: K65.2 Spontaneous bacterial peritonitis (principal); B95.5 Unspecified streptococcus as the cause of diseases classified elsewhere; R78.81 Bacteremia; K74.60 Unspecified cirrhosis of liver; R18.8 Other ascites; Z95.810 Presence of automatic (implantable) cardiac defibrillator
CPT/HCPCS: 96365

== ENCOUNTER 2021-07-07 08:22 | Day surgery (SDC) | payer OTHER ==
[2021-07-07] MEDS ORDERED: CEFTRIAXONE 2 GM in DEXTROSE 5%-WATER 100 ML IVPB ONE (08:45)
[2021-07-07] MEDS ORDERED: DEXTROSE 5%-WATER 100 ML IVPB ONE (08:45)
[2021-07-07 12:53] VITALS: BP 125/62; PULSE 78; TEMP 98.6
== END 2021-07-07 15:11 | disposition home or self-care (01) ==
LOC: JINFUSION 08:22 → J7W 08:24 → JINFUSION 15:11
PROVIDERS: ATTEND Student in an Organized Health Care Education/Training Program
DX: K65.2 Spontaneous bacterial peritonitis (principal); B95.5 Unspecified streptococcus as the cause of diseases classified elsewhere
CPT/HCPCS: 96365

== ENCOUNTER 2021-07-08 08:10 | Day surgery (SDC) | payer OTHER ==
[2021-07-08] MEDS ORDERED: DEXTROSE 5%-WATER 100 ML IVPB ONE (08:23)
[2021-07-08] MEDS ORDERED: CEFTRIAXONE 2 GM in DEXTROSE 5%-WATER 100 ML IVPB ONE (08:30)
[2021-07-08 09:16] VITALS: BP 115/64; PULSE 75; TEMP 97.8
[2021-07-09 14:36] LABS: CALCIUM 8.5 mg/dL (8.5-10.1)
[2021-07-09 14:37] LABS: ALBUMIN 2.6 g/dl (3.4-5.0); BLOOD UREA NITROGEN 9.7 mg/dL (7-18)
[2021-07-09 14:41] LABS: CREATININE 0.5 mg/dL (0.55-1.3)
[2021-07-09 14:42] LABS: BILIRUBIN,TOTAL 0.6 mg/dL (0.2-1); TOT PROT 7.3 g/dl (6.4-8.2)
[2021-07-09 14:56] LABS: BASO % 0.9 % (0-2.0); EOS % 13.8 % (0-4.5); LYMPH % 20.4 % (8-40); MONO % 6.4 % (3.8-10.2); NEUT % 58.5 % (42.8-82.8)
[2021-07-09 14:57] LABS: HEMATOCRIT 33.3 % (35.4-49); HEMOGLOBIN 10.2 GM/dL (11.7-16.9); MCHC 30.7 g/dl (32.0-35.9); MEAN CELL VOLUME 97.8 fl (80-96); PLATELET COUNT 71 10^3/uL (134-434); RBC 3.41 M/mm3 (4.00-5.60); RDW 19.5 % (11.9-15.9); WHITE BLOOD COUNT 3.4 K/mm3 (4.0-10.0)
== END 2021-07-08 09:52 | disposition home or self-care (01) ==
LOC: JINFUSION 08:10 → J7W 08:11 → JINFUSION 09:52
PROVIDERS: ATTEND Student in an Organized Health Care Education/Training Program
DX: K65.2 Spontaneous bacterial peritonitis (principal); B95.5 Unspecified streptococcus as the cause of diseases classified elsewhere
CPT/HCPCS: 36415; 80053; 85025; 86140; 96365

== ENCOUNTER 2021-07-09 08:28 | Day surgery (SDC) | payer OTHER ==
[2021-07-09] MEDS ORDERED: CEFTRIAXONE 2 GM in DEXTROSE 5%-WATER 100 ML IVPB ONE (08:45)
[2021-07-09] MEDS ORDERED: PT OWN MED DRAWER 7, Y5N ONE (10:16)
[2021-07-09 14:51] VITALS: BP 116/46; PULSE 72; TEMP 98.2
== END 2021-07-09 10:05 | disposition home or self-care (01) ==
LOC: JINFUSION 08:28 → J7W 08:29 → JINFUSION 10:05
PROVIDERS: ATTEND Student in an Organized Health Care Education/Training Program
DX: K65.2 Spontaneous bacterial peritonitis (principal); B95.5 Unspecified streptococcus as the cause of diseases classified elsewhere
CPT/HCPCS: 96365

== ENCOUNTER 2021-07-10 08:20 | Day surgery (SDC) | payer OTHER ==
[2021-07-10] MEDS ORDERED: CEFTRIAXONE 2 GM in DEXTROSE 5%-WATER 100 ML IVPB ONE (08:30)
[2021-07-10] MEDS ORDERED: DEXTROSE 5%-WATER 100 ML IVPB ONE (08:32)
[2021-07-10 16:59] VITALS: BP 128/72; PULSE 77; TEMP 98.3
== END 2021-07-10 10:00 | disposition home or self-care (01) ==
LOC: JINFUSION 08:20 → J7W 08:21 → JINFUSION 10:00
PROVIDERS: ATTEND Student in an Organized Health Care Education/Training Program
DX: K65.2 Spontaneous bacterial peritonitis (principal); B95.5 Unspecified streptococcus as the cause of diseases classified elsewhere
CPT/HCPCS: 96365

== ENCOUNTER 2021-07-11 08:13 | Day surgery (SDC) | payer OTHER ==
[2021-07-11] MEDS ORDERED: DEXTROSE 5%-WATER 100 ML IVPB ONE (08:22)
[2021-07-11] MEDS ORDERED: CEFTRIAXONE 2 GM in DEXTROSE 5%-WATER 100 ML IVPB ONE (08:30)
[2021-07-11 08:32] VITALS: TEMP 98.7
[2021-07-11 10:10] VITALS: BP 124/68; PULSE 78
== END 2021-07-11 09:30 | disposition home or self-care (01) ==
LOC: JINFUSION 08:13 → J7W 08:14 → JINFUSION 09:30
PROVIDERS: ATTEND Student in an Organized Health Care Education/Training Program
DX: K65.2 Spontaneous bacterial peritonitis (principal); B95.5 Unspecified streptococcus as the cause of diseases classified elsewhere
CPT/HCPCS: 96365

== ENCOUNTER 2021-07-12 08:02 | Day surgery (SDC) | payer OTHER ==
[2021-07-12] MEDS ORDERED: CEFTRIAXONE 2 GM in DEXTROSE 5%-WATER 100 ML IVPB ONE (08:15)
[2021-07-12] MEDS ORDERED: DEXTROSE 5%-WATER 100 ML IVPB ONE (08:42)
[2021-07-12 14:57] VITALS: BP 125/86; PULSE 86
== END 2021-07-12 14:57 | disposition home or self-care (01) ==
LOC: JINFUSION 08:02 → J7W 08:02 → JINFUSION 14:57
PROVIDERS: ATTEND Student in an Organized Health Care Education/Training Program
DX: K65.2 Spontaneous bacterial peritonitis (principal); B95.5 Unspecified streptococcus as the cause of diseases classified elsewhere
CPT/HCPCS: 96365

== ENCOUNTER 2021-07-13 08:07 | Day surgery (SDC) | payer OTHER ==
[2021-07-13] MEDS ORDERED: CEFTRIAXONE 2 GM in DEXTROSE 5%-WATER 100 ML IVPB ONE (08:30)
[2021-07-13] MEDS ORDERED: DEXTROSE 5%-WATER 100 ML IVPB ONE (08:36)
[2021-07-13 11:01] VITALS: BP 125/81; PULSE 83; TEMP 98.1
== END 2021-07-13 11:00 | disposition home or self-care (01) ==
LOC: JINFUSION 08:07 → J7W 08:08 → JINFUSION 11:00
PROVIDERS: ATTEND Student in an Organized Health Care Education/Training Program
DX: K65.2 Spontaneous bacterial peritonitis (principal); B95.5 Unspecified streptococcus as the cause of diseases classified elsewhere
CPT/HCPCS: 96365

== ENCOUNTER 2021-07-14 08:27 | Day surgery (SDC) | payer OTHER ==
[2021-07-14] MEDS ORDERED: CEFTRIAXONE 2 GM in DEXTROSE 5%-WATER 100 ML IVPB ONE (08:45)
[2021-07-14] MEDS ORDERED: DEXTROSE 5%-WATER 100 ML IVPB ONE (09:06)
[2021-07-14 11:07] VITALS: BP 125/63; PULSE 79; TEMP 98.3
== END 2021-07-14 11:08 | disposition home or self-care (01) ==
LOC: JINFUSION 08:27 → J7W 08:33 → JINFUSION 11:08
PROVIDERS: ATTEND Student in an Organized Health Care Education/Training Program
DX: K65.2 Spontaneous bacterial peritonitis (principal); B95.5 Unspecified streptococcus as the cause of diseases classified elsewhere
CPT/HCPCS: 96365

== ENCOUNTER 2021-07-15 07:53 | Day surgery (SDC) | payer OTHER ==
[2021-07-15] MEDS ORDERED: CEFTRIAXONE 2 GM in DEXTROSE 5%-WATER 100 ML IVPB ONE (09:00)
[2021-07-15] MEDS ORDERED: DEXTROSE 5%-WATER 100 ML IVPB ONE (09:03)
[2021-07-15 10:54] LABS: BASO % 0.9 % (0-2.0); EOS % 12.6 % (0-4.5); HEMATOCRIT 33.1 % (35.4-49); HEMOGLOBIN 10.8 GM/dL (11.7-16.9); LYMPH % 27.1 % (8-40); MCHC 32.7 g/dl (32.0-35.9); MEAN CELL VOLUME 91.7 fl (80-96); MONO % 12.5 % (3.8-10.2); NEUT % 46.9 % (42.8-82.8); PLATELET COUNT 78 10^3/uL (134-434); RBC 3.61 M/mm3 (4.00-5.60); RDW 16.3 % (11.9-15.9); WHITE BLOOD COUNT 3.5 K/mm3 (4.0-10.0)
[2021-07-15 11:08] VITALS: TEMP 98.2
[2021-07-15 11:09] VITALS: BP 122/75; PULSE 75
[2021-07-15 11:24] LABS: BLOOD UREA NITROGEN 9.2 mg/dL (7-18); CALCIUM 8.3 mg/dL (8.5-10.1)
[2021-07-15 11:25] LABS: ALBUMIN 2.6 g/dl (3.4-5.0)
[2021-07-15 11:28] LABS: CREATININE 0.6 mg/dL (0.55-1.3)
[2021-07-15 11:29] LABS: BILIRUBIN,TOTAL 0.6 mg/dL (0.2-1); TOT PROT 7.5 g/dl (6.4-8.2)
== END 2021-07-15 11:31 | disposition home or self-care (01) ==
LOC: JINFUSION 07:53 → J7W 08:22 → JINFUSION 11:31
PROVIDERS: ATTEND Student in an Organized Health Care Education/Training Program
DX: K65.2 Spontaneous bacterial peritonitis (principal); B95.5 Unspecified streptococcus as the cause of diseases classified elsewhere
CPT/HCPCS: 36415; 80053; 85025; 86140; 96365

== ENCOUNTER 2021-07-16 09:36 | Day surgery (SDC) | payer OTHER ==
[2021-07-16] MEDS ORDERED: DEXTROSE 5%-WATER 100 ML IVPB ONE (09:51)
[2021-07-16] MEDS ORDERED: CEFTRIAXONE 2 GM in DEXTROSE 5%-WATER 100 ML IVPB ONE (10:00)
[2021-07-16 12:12] VITALS: BP 123/55; PULSE 82; TEMP 98.4
== END 2021-07-16 12:12 | disposition home or self-care (01) ==
LOC: J7W 09:36 → JINFUSION 09:36
PROVIDERS: ATTEND Student in an Organized Health Care Education/Training Program
DX: K65.2 Spontaneous bacterial peritonitis (principal); B95.5 Unspecified streptococcus as the cause of diseases classified elsewhere
CPT/HCPCS: 96365

== ENCOUNTER 2021-07-17 09:41 | Day surgery (SDC) | payer OTHER ==
[2021-07-17] MEDS ORDERED: cefTRIAXone 2 GM/100 ML BAG (PRE-DOCKED) IVPB SCH (10:00)
[2021-07-17 10:22] VITALS: BP 123/61; PULSE 76; TEMP 98.1
== END 2021-07-17 10:25 | disposition home or self-care (01) ==
LOC: JINFUSION 09:41 → J7W 09:42 → JINFUSION 10:25
PROVIDERS: ATTEND Student in an Organized Health Care Education/Training Program
DX: K65.2 Spontaneous bacterial peritonitis (principal); B95.5 Unspecified streptococcus as the cause of diseases classified elsewhere
CPT/HCPCS: 96365

== ENCOUNTER 2021-07-18 08:07 | Day surgery (SDC) | payer OTHER ==
[2021-07-18] MEDS ORDERED: CEFTRIAXONE 2 GM in DEXTROSE 5%-WATER 100 ML IVPB ONE (08:30)
[2021-07-18] MEDS ORDERED: DEXTROSE 5%-WATER 100 ML IVPB ONE (08:45)
[2021-07-18 09:38] VITALS: BP 123/63; PULSE 81; TEMP 98.3
== END 2021-07-18 09:38 | disposition home or self-care (01) ==
LOC: J7W 08:07 → JINFUSION 08:07
PROVIDERS: ATTEND Student in an Organized Health Care Education/Training Program
DX: K65.2 Spontaneous bacterial peritonitis (principal); B95.5 Unspecified streptococcus as the cause of diseases classified elsewhere
CPT/HCPCS: 96365

== ENCOUNTER 2021-07-19 07:56 | Day surgery (SDC) | payer OTHER ==
[2021-07-19] MEDS ORDERED: DEXTROSE 5%-WATER 100 ML IVPB ONE (08:55)
[2021-07-19] MEDS ORDERED: CEFTRIAXONE 2 GM in DEXTROSE 5%-WATER 100 ML IVPB ONE (09:00)
[2021-07-19 13:55] VITALS: TEMP 97.8
[2021-07-19 13:56] VITALS: BP 134/74; PULSE 80
== END 2021-07-19 09:40 | disposition home or self-care (01) ==
LOC: JINFUSION 07:56 → J7W 07:57 → JINFUSION 09:40
PROVIDERS: ATTEND Student in an Organized Health Care Education/Training Program
DX: K65.2 Spontaneous bacterial peritonitis (principal); B95.5 Unspecified streptococcus as the cause of diseases classified elsewhere
CPT/HCPCS: 96365

== ENCOUNTER 2021-07-20 07:55 | Day surgery (SDC) | payer OTHER ==
[2021-07-20] MEDS ORDERED: CEFTRIAXONE 2 GM in DEXTROSE 5%-WATER 100 ML IVPB ONE (08:30)
[2021-07-20] MEDS ORDERED: DEXTROSE 5%-WATER 100 ML IVPB ONE (08:47)
[2021-07-20 11:09] VITALS: BP 113/65; PULSE 70; TEMP 98.4
== END 2021-07-20 11:11 | disposition home or self-care (01) ==
LOC: JINFUSION 07:55 → J7W 07:56 → JINFUSION 11:11
PROVIDERS: ATTEND Student in an Organized Health Care Education/Training Program
DX: K65.2 Spontaneous bacterial peritonitis (principal); B95.5 Unspecified streptococcus as the cause of diseases classified elsewhere
CPT/HCPCS: 96365

== ENCOUNTER 2021-07-21 09:26 | Day surgery (SDC) | payer OTHER ==
[2021-07-21 09:45] VITALS: BP 123/68; PULSE 79; TEMP 98.5
== END 2021-07-21 10:00 | disposition home or self-care (01) ==
LOC: JINFUSION 09:26 → J7W 09:26 → JINFUSION 10:00
PROVIDERS: ATTEND Student in an Organized Health Care Education/Training Program
DX: K65.2 Spontaneous bacterial peritonitis (principal); B95.5 Unspecified streptococcus as the cause of diseases classified elsewhere
CPT/HCPCS: 96365